=== PATIENT | male | born 1940 | race Hispanic/Latino ===

== ENCOUNTER 2018-04-01 09:44 | Inpatient (IN) | payer MEDICARE ==
--- NOTE | 2018-04-01 10:11 | RAD ---
Date of service: 04/01/2018 HISTORY: Chest pain COMPARISON: 02/24/2011 FINDINGS: LUNGS: The lungs are well inflated. There is dense consolidation in the right upper lobe and mid lung. There is also airspace disease in the left upper lobe and left lower lobe. PLEURA: No significant pleural effusion identified, no pneumothorax apparent. CARDIOVASCULAR: Persistent mild cardiomegaly. Status post CABG. There is a left-sided AICD. OSSEOUS STRUCTURES: No significant abnormalities. VISUALIZED UPPER ABDOMEN: Normal. OTHER FINDINGS: None. IMPRESSION: Multifocal consolidation in the lungs which may represent multifocal pneumonia. Follow-up after medical management is recommended to ensure complete resolution.
[2018-04-01] MEDS ORDERED: Sodium Chloride 0.9% 1,000 ML IV ONE (10:18)
[2018-04-01] MEDS ORDERED: Vancomycin 1 GM 1 GM/250 ML BAG IV STA (10:18)
[2018-04-01 10:19] LABS: LYMPH # 7.6 K/uL (1.0-4.3); LYMPH % 34.2 % (20.0-40.0); MEAN CORPUSCULAR HEMOGLOBIN 36.4 pg (27.0-31.0); MEAN CORPUSCULAR HGB CONC 33.7 g/dL (33.0-37.0); MEAN PLATELET VOLUME 10.2 fL (7.2-11.7); MONO # 0.5 K/uL (0.0-0.8); MONO % 2.1 % (0.0-10.0); NEUT # 14.1 K/uL (1.8-7.0); NEUT % 63.7 % (50.0-75.0); RBC 2.4 Mil/uL (4.40-5.90); RED CELL DISTRIBUTION WIDTH 15.9 % (11.5-14.5); WHITE BLOOD COUNT 22.1 K/uL (4.8-10.8)
[2018-04-01] MEDS ORDERED: Moxifloxacin IV 400mg/250ml NS 400 MG/250 ML BAG IV STA (10:19)
[2018-04-01] MEDS ORDERED: Cefepime 1 GM in Sodium Chloride 0.9% 50 ML IVPB STA (10:19)
--- NOTE | 2018-04-01 10:21 | C.PDOC ---
History Of Present Illness Patient BIBA from home for evaluation of lethargy, respiratory distress, AMS, fever. As per , patient was at normal baseline yesterday night; this morning he was difficult to arouse, confused and tachypnic. History limited due to clinical condition, obtained from EMS and . PMx HTN, CHF, MVP, CLL Time Seen by Provider: 04/01/18 09:55 Chief Complaint (Nursing): Fever History Per: EMS, Family History/Exam Limitations: clinical condition Onset/Duration Of Symptoms: Hrs Severity: Severe Past Medical History Vital Signs: Last Vital Signs Temp 103.1 F H 04/01/18 09:49 Pulse 133 H 04/01/18 10:39 Resp 17 04/01/18 10:39 BP 105/66 04/01/18 10:39 Pulse Ox 86 L 04/01/18 11:07 - Medical History PMH: Atrial Fibrillation, CHF, HTN, Hypercholesterolemia, Mitral Valve Prolapse Surgical History: CABG, Pacemaker - [facility] Procedures DRAINAGE OF RIGHT ELBOW BURSA AND LIGAMENT, PERC APPROACH (06/01/17) Family History: States: No Known Family Hx - Social History Hx Alcohol Use: Yes (social drinker) Hx Substance Use: No - Immunization History Hx Influenza Vaccination: Yes Hx Pneumococcal Vaccination: Yes Review Of Systems Constitutional: Positive for: Fever, Other (AMS, LETHARGY) Respiratory: Positive for: Cough, Shortness of Breath Gastrointestinal: Negative for: Nausea, Vomiting, Abdominal Pain, Diarrhea Skin: Negative for: Rash Physical Exam - Physical Exam Appears: Toxic, In Acute Distress (lethargic, in moderate respiratory distress) , Chronically Ill Skin: Warm, Dry Eye(s): bilateral: Normal Inspection Oral Mucosa: Dry Chest: Other (left upper chest AICD) Cardiovascular: Rhythm Irregular (tachycardic and irregularly irregular ) Respiratory: Accessory Muscle Use (moderate to severe ), Rales (diffuse rales B/ L ), No Wheezing, Other (coarse breath sounds B/L ) Gastrointestinal/Abdominal: Normal Exam, Bowel Sounds, Soft, No Tenderness Extremity: Other (diffuse pitting edema +3 B/L UEs, LEs) Pulses: Left Dorsalis Pedis: Normal, Right Dorsalis Pedis: Normal ED Course And Treatment - Laboratory Results Result Diagrams: 04/01/18 10:09 ECG: Interpreted By Me, Viewed By Me (atrial fibrillation 135 bpm, normal axis, T wave inversions I, aVL, aVF, V5-V6, no ST changes) ECG Interpretation: Abnormal O2 Sat by Pulse Oximetry: 86 (ra) Pulse Ox Interpretation: Abnormal - Radiology CXR: Interpreted by Me, Viewed By Me CXR Interpretation: Yes: Other (B/L infiltrates vs masses, ET tube in place, OG tube below diaphragm) Progress Note: Patient lethargic, dyspneic, fluid overloaded, febrile and hypotensive. Will not be able to tolerate BiPap. confirms patient wants everything done, is full code. Patient emergently intubated by me, given Etomidate 20mg, IV Succinylcholin 100mg IV. 1st attempt esophageal intubation, 2nd attempt successful ET tube 7.5, 24mm at lip. IV NS boluses given, broad spectrum antibiotics ordered, Code sepsis called. 11:05am- Patient accepted to ICU for sepsis, PNA, respiratory distress, AMS, lethargy, fluid overload/ anasarca - Physician Consult Information Physician Contacted: Eneida Maloney Outcome Of Conversation: Spoke with Dr. Maloney, admitted patient 05/2017, he knows patient and agrees with admission to his service. Medical Decision Making Medical Decision Making: Sandy Coma Scale/Score (GCS) from [email or web address] on 04/01/2018 All calculations should be rechecked by clinician prior to use RESULT SUMMARY: 6 points [id number] INPUTS: Best eye response > 1 = No eye opening (+1) Best verbal response > 1 = No verbal response (+1) Best motor response > 4 = Withdrawal from pain (+4) Disposition - Disposition
[2018-04-01 10:22] LABS: HEMOGLOBIN 8.7 g/dL (12.0-18.0)
[2018-04-01 10:23] LABS: INR 1.7; PROTHROMBIN TIME 18.5 SECONDS (9.7-12.2)
[2018-04-01] MEDS ORDERED: Etomidate 20 mg/10ml Inj IV ONE (10:25)
--- NOTE | 2018-04-01 10:36 | RAD ---
Date of service: 04/01/2018 HISTORY: post tube placement COMPARISON: 04/01/2018 FINDINGS: LUNGS: Persistent opacity right mid and upper lung and left perihilar, partially obscured by pacemaker. Possible pneumonia. Followup to clearing to exclude underlying mass. PLEURA: No significant pleural effusion identified, no pneumothorax apparent. CARDIOVASCULAR: Normal heart size. AICD. ET tube and NG tube noted. ET tube is new since prior examination. Stable is situated approximately 4.0 cm above the tracheal meño. Nasogastric tube extends to the left upper abdomen. OSSEOUS STRUCTURES: No significant abnormalities. VISUALIZED UPPER ABDOMEN: Normal. OTHER FINDINGS: None. IMPRESSION: Bilateral opacities common nonspecific. Possible pneumonia. Followup to clearing. New ET tube appropriately positioned.
[2018-04-01] MEDS ORDERED: Sodium Chloride 0.9% 3,000 ML ONE (10:38)
[2018-04-01 10:39] LABS: ABG ALLEN TEST POS; ARTERIAL BLOOD GAS HCO3 24.5 mmol/L (21-28); ARTERIAL BLOOD GAS O2 SAT 99.1 % (95-98); ARTERIAL BLOOD GAS PCO2 34 mm/Hg (35-45); ARTERIAL BLOOD GAS PH 7.44 (7.35-7.45); ARTERIAL BLOOD GAS PO2 94 mm/Hg (80-100); ARTERIAL BLOOD GAS TCO2 24.1 mmol/L (22-28)
[2018-04-01] MEDS ORDERED: Moxifloxacin IV 400mg/250ml NS 400 MG/250 ML BAG IVPB ONE (10:43)
[2018-04-01 11:10] LABS: CK-MB 0.28 ng/mL (0.0-3.38); TROPONIN I 0.214 ng/mL (0.00-0.120)
[2018-04-01 11:37] LABS: SQUAMOUS EPITHIAL < 1 /hpf (0-5); URINE AMORPHOUS SEDIMENT RARE /ul (<OCC); URINE BACTERIA OCC (<OCC); URINE BILIRUBIN NEGATIVE (NEGATIVE); URINE BLOOD 1+ (NEGATIVE); URINE CLARITY Hazy (Clear); URINE COLOR Yellow (YELLOW); URINE GLUCOSE (UA) NORMAL (Normal); URINE LEUKOCYTE ESTERASE 1+ Leu/uL (Negative); URINE PROTEIN NEGATIVE (NEGATIVE); URINE UROBILINOGEN NORMAL mg/dL (0.2-1.0)
[2018-04-01 11:49] LABS: ALB/GLOB RATIO 0.9 (1.0-2.1); ALBUMIN 2.9 g/dL (3.5-5.0); CALCIUM 8.3 mg/dl (8.6-10.4)
[2018-04-01] MEDS ORDERED: Sodium Chloride 0.9% 1,000 ML IV SCH (12:30)
--- NOTE | 2018-04-01 12:39 | CT ---
Date of service: 04/01/2018 PROCEDURE: CT HEAD WITHOUT CONTRAST. HISTORY: ams, resp distress, fever COMPARISON: None available. TECHNIQUE: Axial computed tomography images were obtained through the head/brain without intravenous contrast. Radiation dose: Total exam DLP = 1297.18 mGy-cm. This CT exam was performed using one or more of the following dose reduction techniques: Automated exposure control, adjustment of the mA and/or kV according to patient size, and/or use of iterative reconstruction technique. FINDINGS: HEMORRHAGE: No intracranial hemorrhage. BRAIN: No mass effect or edema. Moderate chronic periventricular white matter lucency with patchy deep and subcortical white matter lucency, consistent with chronic microvascular ischemic change. Multifocal small cortical lucencies without surrounding edema of an without significant volume loss. These are seen high left frontal, medial right frontal, high right frontal vertex. Possible subacute infarcts. However, rule out metastasis. Additionally, there are areas of low attenuation in the right basal ganglia which may represent subacute infarcts. Recommend evaluation with pre and post gadolinium enhanced magnetic resonance imaging. 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 VENTRICLES: No hydrocephalus. Incidental cavum septum pellucidum. CALVARIUM: Unremarkable. PARANASAL SINUSES: Chronic sphenoid and right maxillary sinusitis. No evidence of acute sinusitis. MASTOID AIR CELLS: Unremarkable as visualized. No inflammatory changes. OTHER FINDINGS: None. IMPRESSION: Multifocal small cortical lucencies without significant volume loss or surrounding edema. Possible subacute infarcts. Possible subacute right basal ganglia lacunar infarcts. Recommend pre and post gadolinium enhanced magnetic resonance imaging for further evaluation to rule out metastasis. 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 Chronic white matter ischemic change. Mild age-appropriate atrophy.
[2018-04-01] MEDS ORDERED: Digoxin 500 mcg/2ml (0.5 mg/2ml) Inj IVP ONE ×2 (12:41→21:00)
--- NOTE | 2018-04-01 12:46 | CT ---
Date of service: 04/01/2018 PROCEDURE: CT Chest without contrast HISTORY: resp distress, B/L masses vs infiltrates? COMPARISON: None available. TECHNIQUE: Contiguous axial images were obtained through the chest without intravenous contrast enhancement. Sagittal and coronal reconstructions were performed. Radiation dose (DLP): 643.34 mGy-cm. This CT exam was performed using one or more of the following dose reduction techniques: Automated exposure control, adjustment of the mA and/or kV according to patient size, and/or use of iterative reconstruction technique. FINDINGS: LUNGS: Multifocal bilateral consolidation, most prominent in both lower lobes and in the right upper lobe and left upper lobe, right greater than left. Followup to clearing to rule out underlying mass. There are vaguely masslike opacities noted in both upper lobes as well. MEDIASTINUM: Unremarkable thoracic aorta. No aneurysm. Cardiomegaly. CABG. AICD. Dilated main pulmonary artery up to a diameter of 3.5 cm. This may correlate with pulmonary arterial hypertension. No significant lymphadenopathy. ET tube approximately 2.7 cm above the tracheal meño. Nasogastric tube traverses the thoracic esophagus to the gastric lumen. PLEURA: Small bilateral pleural effusion. BONES: No fracture. No destructive lesion. UPPER ABDOMEN: Mild splenomegaly. . Ascites. OTHER FINDINGS: None. IMPRESSION: Multifocal consolidation with vaguely masslike opacities in both upper lobes. Possible multifocal pneumonia. Followup to clearing to rule out underlying neoplasm. Small bilateral pleural effusion. Cardiomegaly. AICD. CABG. ET tube and NG tube. Dilated main pulmonary artery. Ascites. Mild splenomegaly.
[2018-04-01 13:24] LABS: ARTERIAL BLOOD GAS HCO3 24.3 mmol/L (21-28); ARTERIAL BLOOD GAS O2 SAT 99.3 % (95-98); ARTERIAL BLOOD GAS PCO2 28 mm/Hg (35-45); ARTERIAL BLOOD GAS PH 7.49 (7.35-7.45); ARTERIAL BLOOD GAS PO2 203 mm/Hg (80-100); ARTERIAL BLOOD GAS TCO2 22.2 mmol/L (22-28)
[2018-04-01] MEDS: Sodium Chloride 0.9% 500 ML IV ONE ×2 (13:45→14:15)
--- NOTE | 2018-04-01 13:53 | CP.PCM.CON ---
History of Present Illness - History of Present Illness History of Present Illness: ICU Consult note for Dr. Lee Patient is a 77 year old male with history of CLL, A fib, HTN, CHF, CAD s/p CABG and AICD, with possible liver cirrhosis, who was brought in by as per EMS for altered mental status and respiratory distress. Patient was recently started on Ibrutinib for CLL over 2 weeks ago. He had reportedly had a cough with hemoptysis since starting Ibrutinib. As per , he did not complain of pain in his chest recently. states he was febrile 2 days ago, treated with Tylenol and cold compresses . He was alert until this morning, when he was more lethargic and difficult to arouse. As per , he appeared to be in respiratory distress and was altered. He was noted to be more weak and unable to stand up on his own yesterday. PMH: CLL with hemolytic anemia, A fib, HTN, CHF, CAD s/p CABG, AICD, liver cirrhosis, unspecified kidney growth PSH: CABG, AICD, left elbow Social hx: as per , no history of tobacco or alcohol use. Home meds: Flomax 0.4mg, Simvastatin 20mg, Florastor 250mg BID, Metoprolol 25mg BID, Losartan 12.5mg, Zyvox 600mg BID, Lasix 20 PO daily, Pepcid 20mg daily, Plavix 75mg daily, ASA 81mg Allergies: NKDA PMD: Dr. Ivan Villafana EP: Dr. Mcclelland GI: Dr. Santillan Oncologist: Dr. Ibarra Traffic Representative: Dr. Valerio Review of Systems - Review of Systems Systems not reviewed;Unavailable: Intubated Past Patient History - Past Medical History & Family History Past Medical History?: Yes - Past Social History Smoking Status: Never Smoked - CARDIAC Hx Atrial Fibrillation: Yes Hx Congestive Heart Failure: Yes Hx Hypercholesterolemia: Yes Hx Hypertension: Yes Hx Mitral Valve Prolapse: Yes Hx Pacemaker: Yes - PULMONARY Hx Respiratory Disorders: No - NEUROLOGICAL Hx Neurological Disorder: No - HEENT Hx HEENT Problems: No - RENAL Hx Chronic Kidney Disease: No - ENDOCRINE/METABOLIC Hx Endocrine Disorders: No - HEMATOLOGICAL/ONCOLOGICAL Hx Blood Disorders: No Hx Leukemia: Yes - INTEGUMENTARY Hx Dermatological Problems: No - MUSCULOSKELETAL/RHEUMATOLOGICAL Hx Falls: No - GASTROINTESTINAL Hx Gastrointestinal Disorders: No - GENITOURINARY/GYNECOLOGICAL Hx Genitourinary Disorders: No - PSYCHIATRIC Hx Substance Use: No - SURGICAL HISTORY Hx Coronary Artery Bypass Graft: Yes - ANESTHESIA Hx Anesthesia: Yes Hx Anesthesia Reactions: No Hx Malignant Hyperthermia: No Meds Allergies/Adverse Reactions: Allergies Allergy/AdvReac Type Severity Reaction Status Date / Time No Known Allergies Allergy Verified 04/01/18 09:48 - Medications Medications: Current Medications Acetaminophen (Tylenol 325mg Tab) 650 mg PO Q6 PRN PRN Reason: Fever >100.4 F Albuterol Sulfate (Albuterol 0.083% Inhal Elisa (2.5 Mg/3 Ml) Ud) 2.5 mg IH RQ6 JACK Famotidine (Pepcid) 20 mg IVP Q24H JACK Fentanyl Citrate 2,500 mcg/ (Sodium Chloride) 250 mls @ 6.35 mls/hr IV .Q24H PRN; Protocol; 0.7 MCG/KG/HR PRN Reason: PER PROTOCOL Last Admin: 04/01/18 11:26 Dose: 0.66 mcg/kg/hr, 6 mls/hr Sodium Chloride (Sodium Chloride 0.9%) 1,000 mls @ 250 mls/hr IV .Q4H JACK Stop: 04/01/18 20:29 Vancomycin HCl 1,000 mg/ (Sodium Chloride) 250 mls @ 166.6 mls/hr IVPB Q12H JACK PRN Reason: Protocol Vasopressin 40 units/ Sodium (Chloride) 42 mls @ 1.26 mls/hr IV .Q24H JACK; 0.02 UNITS/MIN PRN Reason: Protocol Physical Exam - Constitutional Appears: Other (Intubated and sedated) - Head Exam Head Exam: ATRAUMATIC, NORMOCEPHALIC - Eye Exam Eye Exam: absent: EOMI (sedated and intubated, unable to follow commands) - ENT Exam ENT Exam: Mucous Membranes Moist (ETT and OGT in place, some bloody secretions noted in canister) - Neck Exam Neck exam: Negative for: Lymphadenopathy Additional comments: Right IJ in place - Respiratory Exam Respiratory Exam: Rhonchi (diffusely with coarse breath sounds. Intubated and ventilated. ). absent: Rales, Wheezes - Cardiovascular Exam Cardiovascular Exam: Irregular Rhythm, +S1, +S2 Additional comments: left upper chest AICD present - GI/Abdominal Exam GI & Abdominal Exam: Normal Bowel Sounds, Soft. absent: Guarding, Rebound, Rigid - Extremities Exam Extremities exam: Positive for: pedal edema (2+ pedal edema bilaterally), pedal pulses present. Negative for: calf tenderness Additional comments: Edema of upper extremities bilaterally. - Neurological Exam Neurological exam: Altered (Intubated and sedated. Unable to assess GCS) - Psychiatric Exam Additional comments: Unable to assess since patient is intubated and sedated - Skin Skin Exam: Dry, Intact, Warm Results - Vital Signs Recent Vital Signs: Last Vital Signs Temp 99.3 F 04/01/18 12:29 Pulse 155 H 04/01/18 13:18 Resp 19 04/01/18 13:18 BP 71/33 L 04/01/18 13:18 Pulse Ox 98 04/01/18 13:18 - Labs Result Diagrams: 04/01/18 15:56 04/01/18 15:56 Labs: Laboratory Results - last 24 hr 04/01/18 04/01/18 04/01/18 09:55 10:09 10:09 WBC 22.1 H RBC 2.40 L Hgb 8.7 L D Hct 25.9 L MCV 108.0 H D MCH 36.4 H MCHC 33.7 RDW 15.9 H Plt Count 65 L D MPV 10.2 Neut % (Auto) 63.7 Lymph % (Auto) 34.2 [place] % (Auto) 2.1 Eos % (Auto) 0.0 Baso % (Auto) 0.0 Neut # (Auto) 14.1 H Lymph # (Auto) 7.6 H [place] # (Auto) 0.5 Eos # (Auto) 0.0 Baso # (Auto) 0.0 Differential Comment PT 18.5 H INR 1.7 APTT 28 Puncture Site pCO2 pO2 HCO3 ABG pH ABG Total CO2 ABG O2 Saturation ABG Base Excess Ricky Test ABG Potassium A-a O2 Difference Respiratory Index Sodium Chloride Glucose Lactate Vent Mode Mechanical Rate FiO2 Tidal Volume PEEP Potassium Carbon Dioxide Anion Gap BUN Creatinine Est GFR ( Amer) Est GFR (Non-Af Amer) POC Glucose (mg/dL) 123 H Random Glucose Calcium Phosphorus Magnesium Total Bilirubin AST ALT Alkaline Phosphatase Total Creatine Kinase CK-MB (Mass) Troponin I NT-Pro-B Natriuret Pep Total Protein Albumin Globulin Albumin/Globulin Ratio Arterial Blood Potassium Urine Color Urine Clarity Urine pH Ur Specific [place] Urine Protein Urine Glucose (UA) Urine Ketones Urine Blood Urine Nitrate Urine Bilirubin Urine Urobilinogen Ur Leukocyte Esterase Urine WBC (Auto) Urine RBC (Auto) Ur Squamous Epith Cells Amorphous Sediment Urine Bacteria Hyaline Casts Influenza Typ A,B (EIA) Blood Type Antibody Screen 04/01/18 04/01/18 04/01/18 10:09 10:36 10:46 WBC RBC Hgb Hct MCV MCH MCHC RDW Plt Count MPV Neut % (Auto) Lymph % (Auto) [place] % (Auto) Eos % (Auto) Baso % (Auto) Neut # (Auto) Lymph # (Auto) [place] # (Auto) Eos # (Auto) Baso # (Auto) Differential Comment PT INR APTT Puncture Site Lra pCO2 34 L pO2 94 HCO3 24.5 ABG pH 7.44 ABG Total CO2 24.1 ABG O2 Saturation 99.1 H ABG Base Excess -0.5 Ricky Test Pos ABG Potassium 3.5 L A-a O2 Difference 577.0 Respiratory Index 6.1 Sodium 140.0 142 Chloride 111.0 H 105 Glucose 109 Lactate 1.3 Vent Mode Prvc Mechanical Rate 16 FiO2 100.0 Tidal Volume 500 PEEP 5 Potassium 3.4 L Carbon Dioxide 24 Anion Gap 17 BUN 79 H Creatinine 1.9 H Est GFR ( Amer) 42 Est GFR (Non-Af Amer) 35 POC Glucose (mg/dL) Random Glucose 118 H Calcium 8.3 L Phosphorus 5.7 H Magnesium 2.4 H Total Bilirubin 3.6 H AST 31 ALT 62 Alkaline Phosphatase 60 Total Creatine Kinase 45 L CK-MB (Mass) 0.28 Troponin I 0.2140 H* NT-Pro-B Natriuret Pep 9300 H Total Protein 6.2 L Albumin 2.9 L D Globulin 3.3 Albumin/Globulin Ratio 0.9 L Arterial Blood Potassium 3.5 L Urine Color Urine Clarity Urine pH Ur Specific [place] Urine Protein Urine Glucose (UA) Urine Ketones Urine Blood Urine Nitrate Urine Bilirubin Urine Urobilinogen Ur Leukocyte Esterase Urine WBC (Auto) Urine RBC (Auto) Ur Squamous Epith Cells Amorphous Sediment Urine Bacteria Hyaline Casts Influenza Typ A,B (EIA) Blood Type Antibody Screen 04/01/18 04/01/18 04/01/18 11:17 11:17 13:20 WBC RBC Hgb Hct MCV MCH MCHC RDW Plt Count MPV Neut % (Auto) Lymph % (Auto) [place] % (Auto) Eos % (Auto) Baso % (Auto) Neut # (Auto) Lymph # (Auto) [place] # (Auto) Eos # (Auto) Baso # (Auto) Differential Comment PT INR APTT Puncture Site Rb pCO2 28 L pO2 203 H HCO3 24.3 ABG pH 7.49 H ABG Total CO2 22.2 ABG O2 Saturation 99.3 H ABG Base Excess -0.9 Ricky Test Na ABG Potassium 2.9 L A-a O2 Difference 475.0 Respiratory Index 2.3 Sodium 141.0 Chloride 113.0 H Glucose 115 H Lactate 1.0 Vent Mode Mechanical Rate 18 FiO2 100.0 Tidal Volume 500 PEEP 5 Potassium Carbon Dioxide Anion Gap BUN Creatinine Est GFR ( Amer) Est GFR (Non-Af Amer) POC Glucose (mg/dL) Random Glucose Calcium Phosphorus Magnesium Total Bilirubin AST ALT Alkaline Phosphatase Total Creatine Kinase CK-MB (Mass) Troponin I NT-Pro-B Natriuret Pep Total Protein Albumin Globulin Albumin/Globulin Ratio Arterial Blood Potassium 2.9 L Urine Color Yellow Urine Clarity Hazy Urine pH 5.0 Ur Specific [place] 1.009 Urine Protein Negative Urine Glucose (UA) Normal Urine Ketones Negative Urine Blood 1+ H Urine Nitrate Negative Urine Bilirubin Negative Urine Urobilinogen Normal Ur Leukocyte Esterase 1+ H Urine WBC (Auto) 3 Urine RBC (Auto) 2 Ur Squamous Epith Cells < 1 Amorphous Sediment Rare H Urine Bacteria Occ H Hyaline Casts 11-20 H Influenza Typ A,B (EIA) Blood Type A POSITIVE Antibody Screen Positive 04/01/18 13:23 WBC RBC Hgb Hct MCV MCH MCHC RDW Plt Count MPV Neut % (Auto) Lymph % (Auto) [place] % (Auto) Eos % (Auto) Baso % (Auto) Neut # (Auto) Lymph # (Auto) [place] # (Auto) Eos # (Auto) Baso # (Auto) Differential Comment PT INR APTT Puncture Site pCO2 pO2 HCO3 ABG pH ABG Total CO2 ABG O2 Saturation ABG Base Excess Ricky Test ABG Potassium A-a O2 Difference Respiratory Index Sodium Chloride Glucose Lactate Vent Mode Mechanical Rate FiO2 Tidal Volume PEEP Potassium Carbon Dioxide Anion Gap BUN Creatinine Est GFR ( Amer) Est GFR (Non-Af Amer) POC Glucose (mg/dL) Random Glucose Calcium Phosphorus Magnesium Total Bilirubin AST ALT Alkaline Phosphatase Total Creatine Kinase CK-MB (Mass) Troponin I NT-Pro-B Natriuret Pep Total Protein Albumin Globulin Albumin/Globulin Ratio Arterial Blood Potassium Urine Color Urine Clarity Urine pH Ur Specific [place] Urine Protein Urine Glucose (UA) Urine Ketones Urine Blood Urine Nitrate Urine Bilirubin Urine Urobilinogen Ur Leukocyte Esterase Urine WBC (Auto) Urine RBC (Auto) Ur Squamous Epith Cells Amorphous Sediment Urine Bacteria Hyaline Casts Influenza Typ A,B (EIA) Negative for flu a/b Blood Type Antibody Screen Assessment & Plan - Assessment and Plan (Free Text) Assessment: 76 year old male with history of CLL, A fib, HTN, CHF, CAD s/p CABG and AICD who presented for evaluation of altered mental status and respiratory distress. Patient was recently started on Ibrutinib for CLL, has had recent hemoptysis. Has had no recent complaints of pain, however became progressively more weak and altered. Plan: Neuro: intubated Versed 1mg Q3 PRN Head CT without contrast 04/01 Multifocal small cortical lucencies without significant volume loss or surrounding edema. Possible subacute infarcts. Possible subacute right basal ganglia lacunar infarcts. Recommend pre and post gadolinium enhanced magnetic resonance imaging for further evaluation to rule out metastasis. 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 Chronic white matter ischemic change. Mild age-appropriate atrophy. Pulmonary: Duonebs Q6 Solumedrol 40mg IV Q8 Vancomycin 1g Q12 CXR 04/01 Multifocal consolidation in the lungs which may represent multifocal pneumonia. Follow-up after medical management is recommended to ensure complete resolution. ETT appropriately placed. New right IJ central line in satisfactory position Chest CT 04/01 Multifocal consolidation with vaguely masslike opacities in both upper lobes. Possible multifocal pneumonia. Followup to clearing to rule out underlying neoplasm. Small bilateral pleural effusion. Cardiomegaly. AICD. CABG. ET tube and NG tube. Dilated main pulmonary artery. Ascites. Mild splenomegaly. ABG 04/01 pH 7.44 pCO2 34 HCO3 24.5 lactate 1.3 Repeat ABG 04/01 pH 7.49 pCO2 28 HCO3 24.3 lactate 1.0 Cardiovascular: EKG: Afib at 135, normal axis, T wave inversions in I, AVL, AVF, V5-6, no ST changes Trop 0.2140 --> 0.[address] Valerio consulted, help appreciated Hx of CAD with CABG and AICD in place Hypotensive 64/44, Right IJ central line placed On Levophed 4mcg/min On Vasopressin 0.02units/min Albumin 12.5mg Q12 NS IVF @ 100cc/hr Tachycardic 130s initially, now 104 ECHO f/u Renal: BUN/Cr 79/1.9 Continue to monitor electrolytes, K repleted I&Os Reese in place Endo: maintain euglycemia GI PPX: Pepcid 20mg IV Abdomen US completed ordered, given patient's stated possible liver cirrhosis and unspecified kidney growth ID Dr. Lu consulted, help appreciated White count 22.1 Febrile to 103.1 HR 130s Tylenol 650mg PO Q6 PRN fever Telavancin, Pramaxin and Atovaquone as per ID recs Blood cultures, urine cultures and sputum cultures sent Heme Dr. Ibarra consulted, help appreciated Hx of CLL Hb 8.7/Hct 25.9 Plts 65 Continue to monitor PPX: SCDs Code status: full code Case discussed with Dr. Lee
[2018-04-01] MEDS ORDERED: Sodium Chloride 0.9% 500 ML IV ONE (14:31)
--- NOTE | 2018-04-01 14:42 | PCM.PROC ---
Procedures Attestation:: I certify that I have explained the specified Operation(s) or Procedure(s), risks, benefits and reasonable alternatives to the Patient and/or other person responsible. The opportunity was given to ask questions and all questions answered - Central Line Placement Right Internal Jugular Aseptic technique was employed throughout the procedure: Hand Hygiene done prior to procedure, Full sterile barriers (mask, hair cover, sterile gown, sterile gloves), Full body sterile drape, Chloraprep Antiseptic: 30 second prep for IJ or SC sites CVP Time Out Performed: Yes Pt. Placed on Pulse Ox Monitor: Yes Central Line Prep: Chlorhexidine-Alcohol Combination Local Anesthesia Used: Lidocaine 1% Ultrasound Used for Placement: Yes Central Line Lumen Inserted: triple Central Line Length: 16 cm Post Procedure: Sutured in Place, Good Blood Return, All Ports Aspirated, Flushed, Capped, Sterile Dressing Applied Secured by: Suture Post procedure dressing: Clear vapor permeable, Chlorhexidine disc (Biopatch) Post Procedure X-Ray: Yes Patient Tolerated Procedure: Well Immediate Complications: None
--- NOTE | 2018-04-01 15:16 | RAD ---
Date of service: 04/01/2018 HISTORY: s/p tlc insertion COMPARISON: Chest radiograph performed approximately 4.5 hours prior FINDINGS: LUNGS: Stable bilateral consolidations. PLEURA: Small bilateral pleural effusions. No pneumothorax apparent. CARDIOVASCULAR: Left subclavian access AICD/ pacemaker redemonstrated. Prior sternotomy with sternal wires and surgical clips redemonstrated. Atherosclerotic aortic calcifications. Cardiomediastinal silhouette stably enlarged. OSSEOUS STRUCTURES: Unchanged. VISUALIZED UPPER ABDOMEN: Normal. OTHER FINDINGS: New right internal jugular access central venous catheter with tip in the proximal SVC. Endotracheal and enteric tubes, unchanged. IMPRESSION: New right internal jugular access central venous catheter in satisfactory position. No appreciable pneumothorax. No other significant interval change.
[2018-04-01] MEDS: Albumin Human 25% (12.5 gm/50 ml) IV SCH ×2 (15:40→21:41)
[2018-04-01] MEDS: MethylPREDNISolone 40 mg Vial IVP SCH (15:40)
[2018-04-01 16:00] LABS: HEMOGLOBIN 7.5 g/dL (12.0-18.0); MONO # 0.3 K/uL (0.0-0.8)
[2018-04-01] MEDS: Sodium Chloride 0.9% 1,000 ML IV SCH (16:00)
[2018-04-01 16:07] LABS: BASO % 0.2 % (0.0-2.0); EOS % 0.1 % (0.0-4.0); LYMPH # 4.8 K/uL (1.0-4.3); LYMPH % 32.8 % (20.0-40.0); MEAN CORPUSCULAR HEMOGLOBIN 36.7 pg (27.0-31.0); MEAN CORPUSCULAR HGB CONC 33.1 g/dL (33.0-37.0); MEAN PLATELET VOLUME 10.1 fL (7.2-11.7); MONO % 2.2 % (0.0-10.0); NEUT # 9.6 K/uL (1.8-7.0); NEUT % 64.7 % (50.0-75.0); NRBC % 41.4 % (0.0-2.0); RBC 2.04 Mil/uL (4.40-5.90)
[2018-04-01 16:09] LABS: MEAN CELL VOLUME 111.1 fL (80.0-94.0)
[2018-04-01 16:15] LABS: ALB/GLOB RATIO 0.8 (1.0-2.1); ALBUMIN 2.2 g/dL (3.5-5.0); CALCIUM 7.3 mg/dl (8.6-10.4)
[2018-04-01 16:36] LABS: CK-MB 1.34 ng/mL (0.0-3.38)
[2018-04-01 16:37] LABS: TROPONIN I 0.224 ng/mL (0.00-0.120)
[2018-04-01] MEDS ORDERED: Midazolam 2 MG/2 ML VIAL IVP PRN (16:51)
[2018-04-01 16:54] LABS: WHITE BLOOD COUNT 21.4 K/uL (4.8-10.8)
--- NOTE | 2018-04-01 17:31 | CP.PCM.CON ---
History of Present Illness - History of Present Illness History of Present Illness: INFECTIOUS DISEASE CONSULTATION NALLELY VAZQUEZ MD, FACP ICU #7 04/01/2018 CHART REVIEWED PT EXAMINED CASE DISCUSSED WITH CAROLINE PILLAI & REAGAN THIS PATIENT IS A 77 YEAR OLD MALE ADMITTED VIA ER/ED WITH TEMPS 103, HYPOTENSION, BILATERAL INFILTRATES AND REQUIRED INTUBATION FOR ACUTE MEDICAL STABLIZATION. 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 KIDNEY LESION, JUST TO MENTION A FEW! PMHX: CLL WITH HEMOLYTIC ANEMIA ATRIAL FIB HTN DYSLIPIDEMIA CAD/ S/P CABG AND AICD CIRRHOSIS A KIDNEY LESION(?) ELBOW ISSUES ETC NO KNOWN ALLERGIES TO MEDS NO RECENT TOBACCO/ETOH FAMILY HX NOT AVAILABLE OR APPLICABLE IN THIS ACUTE CARE SETTING ROS: PER H/P AND CHART-UNABLE OTHERWISE TO ACCERTAIN, LABS: WBC 22,100 H/H 7.5/22/7 PLTS 57 K 3.3 CREAT 1.6 GFR 42 TROPONINS; 0.214, 0.224 MEDS PER CHART REVIEW FROM TOP TO BOTTOM ON DAY ONE, EXAM: BP 71/33 P 155 R INTUBATED SEDATED MOIST MUCOSA DECREASED BREATH SOUNDS WITH DIFFUSE RHONCHI AND QUESTION OF RALES COR TACHYCARDIA ABD SOFT EXT NO ECCHYMOSIS OR CYANOSIS NOTED PRESENTLY NO PERIPHERAL MANIFESTATIONS OF EMBOLIC PHENOMENON IMPRESSION: FROM THE ID POINT OF VIEW; A COMPLICATED CASE OF A 77 YR OLD MAN WITH MULTIORGAN DYSFUNCTION 2ND TO CLL/ MEDS AND AGE ISSUES, ETC R/O BACTERIAL PNEUMONIA WITH COMPLICATED ORGANISMS COVERAGE INCLUDING STREP.MRSA AND GRAM NEGATIVES, WITH EVEN PCP ISSUES START TELAVANCIN(VIBTIV) 700MG IVPB Q 24 HRS PRIMAXIN 500MG IVPB Q 8 HOURS ATOVAQUONE 750MG PO/NGTUBE BID WITH FOOD CBC WITH DIFF, EST, CRP CMP PT/PTT ASK DR GARCIA/XIOMARA FOR THEIR INPUT THANK YOU PROGNOSIS IS GUARDED NALLELY VAZQUEZ MD, FACP ID SENIOR PHYSICIAN Past Patient History - Past Medical History & Family History Past Medical History?: Yes - Past Social History Smoking Status: Never Smoked - CARDIAC Hx Atrial Fibrillation: Yes Hx Congestive Heart Failure: Yes Hx Hypercholesterolemia: Yes Hx Hypertension: Yes Hx Mitral Valve Prolapse: Yes Hx Pacemaker: Yes - PULMONARY Hx Respiratory Disorders: No - NEUROLOGICAL Hx Neurological Disorder: No - HEENT Hx HEENT Problems: No - RENAL Hx Chronic Kidney Disease: No - ENDOCRINE/METABOLIC Hx Endocrine Disorders: No - HEMATOLOGICAL/ONCOLOGICAL Hx Blood Disorders: No Hx Leukemia: Yes - INTEGUMENTARY Hx Dermatological Problems: No - MUSCULOSKELETAL/RHEUMATOLOGICAL Hx Falls: No - GASTROINTESTINAL Hx Gastrointestinal Disorders: No - GENITOURINARY/GYNECOLOGICAL Hx Genitourinary Disorders: No - PSYCHIATRIC Hx Substance Use: No - SURGICAL HISTORY Hx Coronary Artery Bypass Graft: Yes - ANESTHESIA Hx Anesthesia: Yes Hx Anesthesia Reactions: No Hx Malignant Hyperthermia: No Meds Allergies/Adverse Reactions: Allergies Allergy/AdvReac Type Severity Reaction Status Date / Time No Known Allergies Allergy Verified 04/01/18 09:48 - Medications Medications: Current Medications Acetaminophen (Tylenol 325mg Tab) 650 mg PO Q6 PRN PRN Reason: Fever >100.4 F Albumin Human (Albumin Human 25% (12.5 Gm/50 Ml)) 12.5 gm IV Q12 JACK Last Admin: 04/01/18 15:40 Dose: 12.5 gm Albuterol Sulfate (Albuterol 0.083% Inhal Elisa (2.5 Mg/3 Ml) Ud) 2.5 mg IH RQ6 JACK Famotidine (Pepcid) 20 mg IVP Q24H JACK Vancomycin HCl 1,000 mg/ (Sodium Chloride) 250 mls @ 166.6 mls/hr IVPB Q12H JACK PRN Reason: Protocol Norepinephrine Bitartrate 4 mg (/ Sodium Chloride) 254 mls @ 15.24 mls/hr IV .[id number] PRN; Protocol; 4 MCG/MIN PRN Reason: TITRATE PER MD ORDER Last Admin: 04/01/18 14:59 Dose: 4 mcg/min, 15.24 mls/hr Vasopressin 40 units/ Sodium (Chloride) 40 mls @ 1.2 mls/hr IV .Q24H PRN; Protocol; 0.02 UNITS/MIN PRN Reason: TITRATE PER PROTOCOL Last Admin: 04/01/18 14:40 Dose: 0.02 units/min, 1.2 mls/hr Sodium Chloride (Sodium Chloride 0.9%) 1,000 mls @ 100 mls/hr IV .Q10H JACK Methylprednisolone (Solu-Medrol) 40 mg IVP Q12H JACK Last Admin: 08/27/18 15:40 Dose: 40 mg Midazolam HCl (Versed Inj) 1 mg IVP Q3 PRN PRN Reason: Agitation Results - Vital Signs Recent Vital Signs: Last Vital Signs Temp 97.6 F 04/01/18 16:00 Pulse 104 H 04/01/18 16:41 Resp 17 04/01/18 16:41 BP 96/53 L 04/01/18 16:41 Pulse Ox 96 04/01/18 16:41 - Labs Result Diagrams: 04/01/18 15:56 04/01/18 15:56 Labs: Laboratory Results - last 24 hr 04/01/18 04/01/18 04/01/18 09:55 10:09 10:09 WBC 22.1 H RBC 2.40 L Hgb 8.7 L D Hct 25.9 L MCV 108.0 H D MCH 36.4 H MCHC 33.7 RDW 15.9 H Plt Count 65 L D MPV 10.2 Neut % (Auto) 63.7 Lymph % (Auto) 34.2 Starr % (Auto) 2.1 Eos % (Auto) 0.0 Baso % (Auto) 0.0 Neut # (Auto) 14.1 H Lymph # (Auto) 7.6 H Starr # (Auto) 0.5 Eos # (Auto) 0.0 Baso # (Auto) 0.0 Differential Comment PT 18.5 H INR 1.7 APTT 28 Puncture Site pCO2 pO2 HCO3 ABG pH ABG Total CO2 ABG O2 Saturation ABG Base Excess Ricky Test ABG Potassium A-a O2 Difference Respiratory Index Sodium Chloride Glucose Lactate Vent Mode Mechanical Rate FiO2 Tidal Volume PEEP Potassium Carbon Dioxide Anion Gap BUN Creatinine Est GFR ( Amer) Est GFR (Non-Af Amer) POC Glucose (mg/dL) 123 H Random Glucose Lactic Acid Calcium Phosphorus Magnesium Total Bilirubin AST ALT Alkaline Phosphatase Total Creatine Kinase CK-MB (Mass) Troponin I NT-Pro-B Natriuret Pep Total Protein Albumin Globulin Albumin/Globulin Ratio Arterial Blood Potassium Urine Color Urine Clarity Urine pH Ur Specific [place] Urine Protein Urine Glucose (UA) Urine Ketones Urine Blood Urine Nitrate Urine Bilirubin Urine Urobilinogen Ur Leukocyte Esterase Urine WBC (Auto) Urine RBC (Auto) Ur Squamous Epith Cells Amorphous Sediment Urine Bacteria Hyaline Casts Influenza Typ A,B (EIA) Blood Type Antibody Screen DELFINA, Poly Interpret 04/01/18 04/01/18 04/01/18 10:09 10:36 10:46 WBC RBC Hgb Hct MCV MCH MCHC RDW Plt Count MPV Neut % (Auto) Lymph % (Auto) Starr % (Auto) Eos % (Auto) Baso % (Auto) Neut # (Auto) Lymph # (Auto) Starr # (Auto) Eos # (Auto) Baso # (Auto) Differential Comment PT INR APTT Puncture Site Lra pCO2 34 L pO2 94 HCO3 24.5 ABG pH 7.44 ABG Total CO2 24.1 ABG O2 Saturation 99.1 H ABG Base Excess -0.5 Ricky Test Pos ABG Potassium 3.5 L A-a O2 Difference 577.0 Respiratory Index 6.1 Sodium 140.0 142 Chloride 111.0 H 105 Glucose 109 Lactate 1.3 Vent Mode Prvc Mechanical Rate 16 FiO2 100.0 Tidal Volume 500 PEEP 5 Potassium 3.4 L Carbon Dioxide 24 Anion Gap 17 BUN 79 H Creatinine 1.9 H Est GFR ( Amer) 42 Est GFR (Non-Af Amer) 35 POC Glucose (mg/dL) Random Glucose 118 H Lactic Acid Calcium 8.3 L Phosphorus 5.7 H Magnesium 2.4 H Total Bilirubin 3.6 H AST 31 ALT 62 Alkaline Phosphatase 60 Total Creatine Kinase 45 L CK-MB (Mass) 0.28 Troponin I 0.2140 H* NT-Pro-B Natriuret Pep 9300 H Total Protein 6.2 L Albumin 2.9 L D Globulin 3.3 Albumin/Globulin Ratio 0.9 L Arterial Blood Potassium 3.5 L Urine Color Urine Clarity Urine pH Ur Specific [place] Urine Protein Urine Glucose (UA) Urine Ketones Urine Blood Urine Nitrate Urine Bilirubin Urine Urobilinogen Ur Leukocyte Esterase Urine WBC (Auto) Urine RBC (Auto) Ur Squamous Epith Cells Amorphous Sediment Urine Bacteria Hyaline Casts Influenza Typ A,B (EIA) Blood Type Antibody Screen DELFINA, Poly Interpret 04/01/18 04/01/18 04/01/18 11:17 11:17 13:20 WBC RBC Hgb Hct MCV MCH MCHC RDW Plt Count MPV Neut % (Auto) Lymph % (Auto) Starr % (Auto) Eos % (Auto) Baso % (Auto) Neut # (Auto) Lymph # (Auto) Starr # (Auto) Eos # (Auto) Baso # (Auto) Differential Comment PT INR APTT Puncture Site Rb pCO2 28 L pO2 203 H HCO3 24.3 ABG pH 7.49 H ABG Total CO2 22.2 ABG O2 Saturation 99.3 H ABG Base Excess -0.9 Ricky Test Na ABG Potassium 2.9 L A-a O2 Difference 475.0 Respiratory Index 2.3 Sodium 141.0 Chloride 113.0 H Glucose 115 H Lactate 1.0 Vent Mode Mechanical Rate 18 FiO2 100.0 Tidal Volume 500 PEEP 5 Potassium Carbon Dioxide Anion Gap BUN Creatinine Est GFR ( Amer) Est GFR (Non-Af Amer) POC Glucose (mg/dL) Random Glucose Lactic Acid Calcium Phosphorus Magnesium Total Bilirubin AST ALT Alkaline Phosphatase Total Creatine Kinase CK-MB (Mass) Troponin I NT-Pro-B Natriuret Pep Total Protein Albumin Globulin Albumin/Globulin Ratio Arterial Blood Potassium 2.9 L Urine Color Yellow Urine Clarity Hazy Urine pH 5.0 Ur Specific [place] 1.009 Urine Protein Negative Urine Glucose (UA) Normal Urine Ketones Negative Urine Blood 1+ H Urine Nitrate Negative Urine Bilirubin Negative Urine Urobilinogen Normal Ur Leukocyte Esterase 1+ H Urine WBC (Auto) 3 Urine RBC (Auto) 2 Ur Squamous Epith Cells < 1 Amorphous Sediment Rare H Urine Bacteria Occ H Hyaline Casts 11-20 H Influenza Typ A,B (EIA) Blood Type A POSITIVE Antibody Screen Positive DELFINA, Poly Interpret Positive H 04/01/18 04/01/18 04/01/18 13:23 15:56 15:56 WBC 21.4 H RBC 2.04 L Hgb 7.5 L Hct 22.7 L MCV 111.1 H D MCH 36.7 H MCHC 33.1 RDW 16.0 H Plt Count 57 L MPV 10.1 Neut % (Auto) 64.7 Lymph % (Auto) 32.8 Starr % (Auto) 2.2 Eos % (Auto) 0.1 Baso % (Auto) 0.2 Neut # (Auto) 9.6 H Lymph # (Auto) 4.8 H Starr # (Auto) 0.3 Eos # (Auto) 0.0 Baso # (Auto) 0.0 Differential Comment PT INR APTT Puncture Site pCO2 pO2 HCO3 ABG pH ABG Total CO2 ABG O2 Saturation ABG Base Excess Ricky Test ABG Potassium A-a O2 Difference Respiratory Index Sodium 143 Chloride 110 H Glucose Lactate Vent Mode Mechanical Rate FiO2 Tidal Volume PEEP Potassium 3.3 L Carbon Dioxide 22 Anion Gap 14 BUN 73 H Creatinine 1.6 H Est GFR ( Amer) 51 Est GFR (Non-Af Amer) 42 POC Glucose (mg/dL) Random Glucose 115 H Lactic Acid Calcium 7.3 L Phosphorus 5.5 H Magnesium 2.2 Total Bilirubin 3.3 H AST 25 ALT 56 Alkaline Phosphatase 45 Total Creatine Kinase 56 CK-MB (Mass) 1.34 Troponin I 0.2240 H* NT-Pro-B Natriuret Pep Total Protein 5.0 L Albumin 2.2 L D Globulin 2.8 Albumin/Globulin Ratio 0.8 L Arterial Blood Potassium Urine Color Urine Clarity Urine pH Ur Specific [place] Urine Protein Urine Glucose (UA) Urine Ketones Urine Blood Urine Nitrate Urine Bilirubin Urine Urobilinogen Ur Leukocyte Esterase Urine WBC (Auto) Urine RBC (Auto) Ur Squamous Epith Cells Amorphous Sediment Urine Bacteria Hyaline Casts Influenza Typ A,B (EIA) Negative for flu a/b Blood Type Antibody Screen DELFINA, Poly Interpret 04/01/18 15:56 WBC RBC Hgb Hct MCV MCH MCHC RDW Plt Count MPV Neut % (Auto) Lymph % (Auto) Starr % (Auto) Eos % (Auto) Baso % (Auto) Neut # (Auto) Lymph # (Auto) Starr # (Auto) Eos # (Auto) Baso # (Auto) Differential Comment PT INR APTT Puncture Site pCO2 pO2 HCO3 ABG pH ABG Total CO2 ABG O2 Saturation ABG Base Excess Ricky Test ABG Potassium A-a O2 Difference Respiratory Index Sodium Chloride Glucose Lactate Vent Mode Mechanical Rate FiO2 Tidal Volume PEEP Potassium Carbon Dioxide Anion Gap BUN Creatinine Est GFR ( Amer) Est GFR (Non-Af Amer) POC Glucose (mg/dL) Random Glucose Lactic Acid 1.0 Calcium Phosphorus Magnesium Total Bilirubin AST ALT Alkaline Phosphatase Total Creatine Kinase CK-MB (Mass) Troponin I NT-Pro-B Natriuret Pep Total Protein Albumin Globulin Albumin/Globulin Ratio Arterial Blood Potassium Urine Color Urine Clarity Urine pH Ur Specific [place] Urine Protein Urine Glucose (UA) Urine Ketones Urine Blood Urine Nitrate Urine Bilirubin Urine Urobilinogen Ur Leukocyte Esterase Urine WBC (Auto) Urine RBC (Auto) Ur Squamous Epith Cells Amorphous Sediment Urine Bacteria Hyaline Casts Influenza Typ A,B (EIA) Blood Type Antibody Screen DELFINA, Poly Interpret
[2018-04-01] MEDS ORDERED: Potassium Chloride 20 mEq/15 ml LIQ UD PO ONE (17:39)
[2018-04-01] MEDS ORDERED: Imipenem/Cilastatin 500 MG in Dextrose 5% In Water 100 ML IVPB SCH (17:45)
[2018-04-01] MEDS: Atovaquone 750 mg/5 ml Susp UD PO SCH (18:42)
[2018-04-01] MEDS: Imipenem/Cilastatin 500 MG in Sodium Chloride 100 ML IVPB SCH (18:42)
[2018-04-01] MEDS: DEXTROSE 5% IVPB SCH (18:43)
[2018-04-01] MEDS: WATER IVPB SCH (18:43)
[2018-04-01] MEDS: TELAVANCIN HYDROCHLORIDE IVPB SCH (18:43)
[2018-04-01] MEDS: Albuterol 0.083% Inhal Sol (2.5 mg/3 mL) UD IH SCH (19:00)
--- NOTE | 2018-04-01 19:59 | CP.PCM.HP ---
Past Patient History - Past Medical History & Family History Past Medical History?: Yes - Past Social History Smoking Status: Never Smoked - CARDIAC Hx Atrial Fibrillation: Yes Hx Congestive Heart Failure: Yes Hx Hypercholesterolemia: Yes Hx Hypertension: Yes Hx Mitral Valve Prolapse: Yes Hx Pacemaker: Yes - PULMONARY Hx Respiratory Disorders: No - NEUROLOGICAL Hx Neurological Disorder: No - HEENT Hx HEENT Problems: No - RENAL Hx Chronic Kidney Disease: No - ENDOCRINE/METABOLIC Hx Endocrine Disorders: No - HEMATOLOGICAL/ONCOLOGICAL Hx Blood Disorders: No Hx Leukemia: Yes - INTEGUMENTARY Hx Dermatological Problems: No - MUSCULOSKELETAL/RHEUMATOLOGICAL Hx Falls: No - GASTROINTESTINAL Hx Gastrointestinal Disorders: No - GENITOURINARY/GYNECOLOGICAL Hx Genitourinary Disorders: No - PSYCHIATRIC Hx Substance Use: No - SURGICAL HISTORY Hx Coronary Artery Bypass Graft: Yes - ANESTHESIA Hx Anesthesia: Yes Hx Anesthesia Reactions: No Hx Malignant Hyperthermia: No Meds Allergies/Adverse Reactions: Allergies Allergy/AdvReac Type Severity Reaction Status Date / Time No Known Allergies Allergy Verified 04/01/18 09:48 Physical Exam - Constitutional Appears: Well - Head Exam Head Exam: ATRAUMATIC, NORMAL INSPECTION, NORMOCEPHALIC - Eye Exam Eye Exam: EOMI, Normal appearance, PERRL Pupil Exam: NORMAL ACCOMODATION, PERRL - ENT Exam ENT Exam: Mucous Membranes Moist, Normal Exam - Neck Exam Neck exam: Positive for: Normal Inspection - Respiratory Exam Respiratory Exam: Decreased Breath Sounds - Cardiovascular Exam Cardiovascular Exam: REGULAR RHYTHM, +S1, +S2 - GI/Abdominal Exam GI & Abdominal Exam: Diminished Bowel Sounds, Soft - Rectal Exam Rectal Exam: Deferred Results - Vital Signs Recent Vital Signs: Last Vital Signs Temp 97.6 F 04/01/18 16:00 Pulse 150 H 04/01/18 19:30 Resp 26 H 04/01/18 19:30 BP 138/99 H 04/01/18 19:29 Pulse Ox 85 L 04/01/18 19:29 - Labs Result Diagrams: 04/01/18 15:56 04/01/18 15:56 Labs: Laboratory Results - last 24 hr 04/01/18 04/01/18 04/01/18 09:55 10:09 10:09 WBC 22.1 H RBC 2.40 L Hgb 8.7 L D Hct 25.9 L MCV 108.0 H D MCH 36.4 H MCHC 33.7 RDW 15.9 H Plt Count 65 L D MPV 10.2 Neut % (Auto) 63.7 Lymph % (Auto) 34.2 Humphreys % (Auto) 2.1 Eos % (Auto) 0.0 Baso % (Auto) 0.0 Neut # (Auto) 14.1 H Lymph # (Auto) 7.6 H Humphreys # (Auto) 0.5 Eos # (Auto) 0.0 Baso # (Auto) 0.0 Differential Comment PT 18.5 H INR 1.7 APTT 28 Puncture Site pCO2 pO2 HCO3 ABG pH ABG Total CO2 ABG O2 Saturation ABG Base Excess Ricky Test ABG Potassium A-a O2 Difference Respiratory Index Sodium Chloride Glucose Lactate Vent Mode Mechanical Rate FiO2 Tidal Volume PEEP Potassium Carbon Dioxide Anion Gap BUN Creatinine Est GFR ( Amer) Est GFR (Non-Af Amer) POC Glucose (mg/dL) 123 H Random Glucose Lactic Acid Calcium Phosphorus Magnesium Total Bilirubin AST ALT Alkaline Phosphatase Total Creatine Kinase CK-MB (Mass) Troponin I NT-Pro-B Natriuret Pep Total Protein Albumin Globulin Albumin/Globulin Ratio Arterial Blood Potassium Urine Color Urine Clarity Urine pH Ur Specific [place] Urine Protein Urine Glucose (UA) Urine Ketones Urine Blood Urine Nitrate Urine Bilirubin Urine Urobilinogen Ur Leukocyte Esterase Urine WBC (Auto) Urine RBC (Auto) Ur Squamous Epith Cells Amorphous Sediment Urine Bacteria Hyaline Casts Influenza Typ A,B (EIA) Blood Type Antibody Screen DELFINA, Poly Interpret 04/01/18 04/01/18 04/01/18 10:09 10:36 10:46 WBC RBC Hgb Hct MCV MCH MCHC RDW Plt Count MPV Neut % (Auto) Lymph % (Auto) Humphreys % (Auto) Eos % (Auto) Baso % (Auto) Neut # (Auto) Lymph # (Auto) Humphreys # (Auto) Eos # (Auto) Baso # (Auto) Differential Comment PT INR APTT Puncture Site Lra pCO2 34 L pO2 94 HCO3 24.5 ABG pH 7.44 ABG Total CO2 24.1 ABG O2 Saturation 99.1 H ABG Base Excess -0.5 Ricky Test Pos ABG Potassium 3.5 L A-a O2 Difference 577.0 Respiratory Index 6.1 Sodium 140.0 142 Chloride 111.0 H 105 Glucose 109 Lactate 1.3 Vent Mode Prvc Mechanical Rate 16 FiO2 100.0 Tidal Volume 500 PEEP 5 Potassium 3.4 L Carbon Dioxide 24 Anion Gap 17 BUN 79 H Creatinine 1.9 H Est GFR ( Amer) 42 Est GFR (Non-Af Amer) 35 POC Glucose (mg/dL) Random Glucose 118 H Lactic Acid Calcium 8.3 L Phosphorus 5.7 H Magnesium 2.4 H Total Bilirubin 3.6 H AST 31 ALT 62 Alkaline Phosphatase 60 Total Creatine Kinase 45 L CK-MB (Mass) 0.28 Troponin I 0.2140 H* NT-Pro-B Natriuret Pep 9300 H Total Protein 6.2 L Albumin 2.9 L D Globulin 3.3 Albumin/Globulin Ratio 0.9 L Arterial Blood Potassium 3.5 L Urine Color Urine Clarity Urine pH Ur Specific [place] Urine Protein Urine Glucose (UA) Urine Ketones Urine Blood Urine Nitrate Urine Bilirubin Urine Urobilinogen Ur Leukocyte Esterase Urine WBC (Auto) Urine RBC (Auto) Ur Squamous Epith Cells Amorphous Sediment Urine Bacteria Hyaline Casts Influenza Typ A,B (EIA) Blood Type Antibody Screen DELFINA, Poly Interpret 04/01/18 04/01/18 04/01/18 11:17 11:17 13:20 WBC RBC Hgb Hct MCV MCH MCHC RDW Plt Count MPV Neut % (Auto) Lymph % (Auto) Humphreys % (Auto) Eos % (Auto) Baso % (Auto) Neut # (Auto) Lymph # (Auto) Humphreys # (Auto) Eos # (Auto) Baso # (Auto) Differential Comment PT INR APTT Puncture Site Rb pCO2 28 L pO2 203 H HCO3 24.3 ABG pH 7.49 H ABG Total CO2 22.2 ABG O2 Saturation 99.3 H ABG Base Excess -0.9 Ricky Test Na ABG Potassium 2.9 L A-a O2 Difference 475.0 Respiratory Index 2.3 Sodium 141.0 Chloride 113.0 H Glucose 115 H Lactate 1.0 Vent Mode Mechanical Rate 18 FiO2 100.0 Tidal Volume 500 PEEP 5 Potassium Carbon Dioxide Anion Gap BUN Creatinine Est GFR ( Amer) Est GFR (Non-Af Amer) POC Glucose (mg/dL) Random Glucose Lactic Acid Calcium Phosphorus Magnesium Total Bilirubin AST ALT Alkaline Phosphatase Total Creatine Kinase CK-MB (Mass) Troponin I NT-Pro-B Natriuret Pep Total Protein Albumin Globulin Albumin/Globulin Ratio Arterial Blood Potassium 2.9 L Urine Color Yellow Urine Clarity Hazy Urine pH 5.0 Ur Specific [place] 1.009 Urine Protein Negative Urine Glucose (UA) Normal Urine Ketones Negative Urine Blood 1+ H Urine Nitrate Negative Urine Bilirubin Negative Urine Urobilinogen Normal Ur Leukocyte Esterase 1+ H Urine WBC (Auto) 3 Urine RBC (Auto) 2 Ur Squamous Epith Cells < 1 Amorphous Sediment Rare H Urine Bacteria Occ H Hyaline Casts 11-20 H Influenza Typ A,B (EIA) Blood Type A POSITIVE Antibody Screen Positive DELFINA, Poly Interpret Positive H 04/01/18 04/01/18 04/01/18 13:23 15:56 15:56 WBC 21.4 H RBC 2.04 L Hgb 7.5 L Hct 22.7 L MCV 111.1 H D MCH 36.7 H MCHC 33.1 RDW 16.0 H Plt Count 57 L MPV 10.1 Neut % (Auto) 64.7 Lymph % (Auto) 32.8 Humphreys % (Auto) 2.2 Eos % (Auto) 0.1 Baso % (Auto) 0.2 Neut # (Auto) 9.6 H Lymph # (Auto) 4.8 H Humphreys # (Auto) 0.3 Eos # (Auto) 0.0 Baso # (Auto) 0.0 Differential Comment PT INR APTT Puncture Site pCO2 pO2 HCO3 ABG pH ABG Total CO2 ABG O2 Saturation ABG Base Excess Ricky Test ABG Potassium A-a O2 Difference Respiratory Index Sodium 143 Chloride 110 H Glucose Lactate Vent Mode Mechanical Rate FiO2 Tidal Volume PEEP Potassium 3.3 L Carbon Dioxide 22 Anion Gap 14 BUN 73 H Creatinine 1.6 H Est GFR ( Amer) 51 Est GFR (Non-Af Amer) 42 POC Glucose (mg/dL) Random Glucose 115 H Lactic Acid Calcium 7.3 L Phosphorus 5.5 H Magnesium 2.2 Total Bilirubin 3.3 H AST 25 ALT 56 Alkaline Phosphatase 45 Total Creatine Kinase 56 CK-MB (Mass) 1.34 Troponin I 0.2240 H* NT-Pro-B Natriuret Pep Total Protein 5.0 L Albumin 2.2 L D Globulin 2.8 Albumin/Globulin Ratio 0.8 L Arterial Blood Potassium Urine Color Urine Clarity Urine pH Ur Specific [place] Urine Protein Urine Glucose (UA) Urine Ketones Urine Blood Urine Nitrate Urine Bilirubin Urine Urobilinogen Ur Leukocyte Esterase Urine WBC (Auto) Urine RBC (Auto) Ur Squamous Epith Cells Amorphous Sediment Urine Bacteria Hyaline Casts Influenza Typ A,B (EIA) Negative for flu a/b Blood Type Antibody Screen DELFINA, Poly Interpret 04/01/18 04/01/18 15:56 17:32 WBC RBC Hgb Hct MCV MCH MCHC RDW Plt Count MPV Neut % (Auto) Lymph % (Auto) Humph[place]ys % (Auto) Eos % (Auto) Baso % (Auto) Neut # (Auto) Lymph # (Auto) Humphreys # (Auto) Eos # (Auto) Baso # (Auto) Differential Comment PT INR APTT Puncture Site pCO2 pO2 HCO3 ABG pH ABG Total CO2 ABG O2 Saturation ABG Base Excess Ricky Test ABG Potassium A-a O2 Difference Respiratory Index Sodium Chloride Glucose Lactate Vent Mode Mechanical Rate FiO2 Tidal Volume PEEP Potassium Carbon Dioxide Anion Gap BUN Creatinine Est GFR ( Amer) Est GFR (Non-Af Amer) POC Glucose (mg/dL) 123 H Random Glucose Lactic Acid 1.0 Calcium Phosphorus Magnesium Total Bilirubin AST ALT Alkaline Phosphatase Total Creatine Kinase CK-MB (Mass) Troponin I NT-Pro-B Natriuret Pep Total Protein Albumin Globulin Albumin/Globulin Ratio Arterial Blood Potassium Urine Color Urine Clarity Urine pH Ur Specific [place] Urine Protein Urine Glucose (UA) Urine Ketones Urine Blood Urine Nitrate Urine Bilirubin Urine Urobilinogen Ur Leukocyte Esterase Urine WBC (Auto) Urine RBC (Auto) Ur Squamous Epith Cells Amorphous Sediment Urine Bacteria Hyaline Casts Influenza Typ A,B (EIA) Blood Type Antibody Screen DELFINA, Poly Interpret
[2018-04-01] MEDS: Phenylephrine 30 MG in Sodium Chloride 0.9% 250 ML IV PRN (21:15)
[2018-04-01 21:25] VITALS: PULSE 135
[2018-04-01 22:34] LABS: HEMOGLOBIN 7.8 g/dL (12.0-18.0); MEAN CELL VOLUME 109.2 fL (80.0-94.0); MEAN CORPUSCULAR HEMOGLOBIN 36.1 pg (27.0-31.0); MEAN PLATELET VOLUME 9.5 fL (7.2-11.7); RBC 2.17 Mil/uL (4.40-5.90); RED CELL DISTRIBUTION WIDTH 16.1 % (11.5-14.5); WHITE BLOOD COUNT 24.8 K/uL (4.8-10.8)
[2018-04-01 23:15] LABS: CK-MB 1.67 ng/mL (0.0-3.38)
[2018-04-01 23:16] LABS: TROPONIN I 0.262 ng/mL (0.00-0.120)
--- NOTE | 2018-04-01 23:24 | CP.PCM.CON ---
History of Present Illness - History of Present Illness History of Present Illness: 77M with Hx of CABG, MVR, A Fib, HTN, systolic CHF s/p AICD Admitted for respratory failure, Sepsis and anema Past Patient History - Past Medical History & Family History Past Medical History?: Yes - Past Social History Smoking Status: Never Smoked - CARDIAC Hx Atrial Fibrillation: Yes Hx Congestive Heart Failure: Yes Hx Hypercholesterolemia: Yes Hx Hypertension: Yes Hx Mitral Valve Prolapse: Yes Hx Pacemaker: Yes - PULMONARY Hx Respiratory Disorders: No - NEUROLOGICAL Hx Neurological Disorder: No - HEENT Hx HEENT Problems: No - RENAL Hx Chronic Kidney Disease: No - ENDOCRINE/METABOLIC Hx Endocrine Disorders: No - HEMATOLOGICAL/ONCOLOGICAL Hx Blood Disorders: No Hx Leukemia: Yes - INTEGUMENTARY Hx Dermatological Problems: No - MUSCULOSKELETAL/RHEUMATOLOGICAL Hx Falls: No - GASTROINTESTINAL Hx Gastrointestinal Disorders: No - GENITOURINARY/GYNECOLOGICAL Hx Genitourinary Disorders: No - PSYCHIATRIC Hx Substance Use: No - SURGICAL HISTORY Hx Coronary Artery Bypass Graft: Yes - ANESTHESIA Hx Anesthesia: Yes Hx Anesthesia Reactions: No Hx Malignant Hyperthermia: No Meds Allergies/Adverse Reactions: Allergies Allergy/AdvReac Type Severity Reaction Status Date / Time No Known Allergies Allergy Verified 04/01/18 09:48 - Medications Medications: Current Medications Acetaminophen (Tylenol 325mg Tab) 650 mg PO Q6 PRN PRN Reason: Fever >100.4 F Albumin Human (Albumin Human 25% (12.5 Gm/50 Ml)) 12.5 gm IV Q12 [facility] Last Admin: 04/01/18 21:41 Dose: 12.5 gm Albuterol Sulfate (Albuterol 0.083% Inhal Elisa (2.5 Mg/3 Ml) Ud) 2.5 mg IH RQ6 [facility] Last Admin: 04/01/18 19:00 Dose: Not Given Atovaquone (Mepron) 750 mg PO BID JACK PRN Reason: Protocol Last Admin: 04/01/18 18:42 Dose: 750 mg Famotidine (Pepcid) 20 mg IVP Q24H JACK Last Admin: 04/01/18 21:21 Dose: 20 mg Norepinephrine Bitartrate 4 mg (/ Sodium Chloride) 254 mls @ 15.24 mls/hr IV .[id number] PRN; Protocol; 4 MCG/MIN PRN Reason: TITRATE PER MD ORDER Last Titration: 04/01/18 22:19 Dose: 1 mcg/min, 3.81 mls/hr Vasopressin 40 units/ Sodium (Chloride) 40 mls @ 1.2 mls/hr IV .Q24H PRN; Protocol; 0.02 UNITS/MIN PRN Reason: TITRATE PER PROTOCOL Last Titration: 04/01/18 17:00 Dose: 0.04 units/min, 2.4 mls/hr Sodium Chloride (Sodium Chloride 0.9%) 1,000 mls @ 100 mls/hr IV .Q10H [facility] Last Admin: 04/01/18 16:00 Dose: Not Given Telavancin 700 mg/ Dextrose 100 mls @ 100 mls/hr IVPB Q24H JACK PRN Reason: Protocol Last Admin: 04/01/18 18:43 Dose: 100 mls/hr Imipenem/Cilastatin Sodium 500 (mg/ Sodium Chloride) 100 mls @ 100 mls/hr IVPB Q8H JACK PRN Reason: Protocol Last Admin: 04/01/18 18:42 Dose: 100 mls/hr Phenylephrine HCl 30 mg/ (Sodium Chloride) 253 mls @ 10.12 mls/hr IV .Q24H PRN ; Protocol; 20 MCG/MIN PRN Reason: TITRATE PER MD ORDER Last Titration: 04/01/18 22:59 Dose: 30 mcg/min, 15.18 mls/hr Methylprednisolone (Solu-Medrol) 40 mg IVP Q12H [facility] Last Admin: 04/01/18 15:40 Dose: 40 mg Midazolam HCl (Versed Inj) 1 mg IVP Q3 PRN PRN Reason: Agitation Last Admin: 04/01/18 21:34 Dose: 1 mg Results - Vital Signs Recent Vital Signs: Last Vital Signs Temp 99.6 F 04/01/18 20:00 Pulse 132 H 04/01/18 23:00 Resp 25 H 04/01/18 23:00 BP 106/47 L 04/01/18 22:57 Pulse Ox 97 04/01/18 23:00 - Labs Result Diagrams: 04/01/18 22:28 04/01/18 15:56 Labs: Laboratory Results - last 24 hr 04/01/18 04/01/18 04/01/18 09:55 10:09 10:09 WBC 22.1 H RBC 2.40 L Hgb 8.7 L D Hct 25.9 L MCV 108.0 H D MCH 36.4 H MCHC 33.7 RDW 15.9 H Plt Count 65 L D MPV 10.2 Neut % (Auto) 63.7 Lymph % (Auto) 34.2 [place] % (Auto) 2.1 Eos % (Auto) 0.0 Baso % (Auto) 0.0 Neut # (Auto) 14.1 H Lymph # (Auto) 7.6 H [place] # (Auto) 0.5 Eos # (Auto) 0.0 Baso # (Auto) 0.0 Differential Comment PT 18.5 H INR 1.7 APTT 28 Puncture Site pCO2 pO2 HCO3 ABG pH ABG Total CO2 ABG O2 Saturation ABG Base Excess Ricky Test ABG Potassium A-a O2 Difference Respiratory Index Sodium Chloride Glucose Lactate Vent Mode Mechanical Rate FiO2 Tidal Volume PEEP Potassium Carbon Dioxide Anion Gap BUN Creatinine Est GFR ( Amer) Est GFR (Non-Af Amer) POC Glucose (mg/dL) 123 H Random Glucose Lactic Acid Calcium Phosphorus Magnesium Total Bilirubin AST ALT Alkaline Phosphatase Total Creatine Kinase CK-MB (Mass) Troponin I NT-Pro-B Natriuret Pep Total Protein Albumin Globulin Albumin/Globulin Ratio Arterial Blood Potassium Urine Color Urine Clarity Urine pH Ur Specific [place] Urine Protein Urine Glucose (UA) Urine Ketones Urine Blood Urine Nitrate Urine Bilirubin Urine Urobilinogen Ur Leukocyte Esterase Urine WBC (Auto) Urine RBC (Auto) Ur Squamous Epith Cells Amorphous Sediment Urine Bacteria Hyaline Casts Influenza Typ A,B (EIA) Blood Type Antibody Screen Antibody Identification Elution DELFINA, Poly Interpret 04/01/18 04/01/18 04/01/18 10:09 10:36 10:46 WBC RBC Hgb Hct MCV MCH MCHC RDW Plt Count MPV Neut % (Auto) Lymph % (Auto) [place] % (Auto) Eos % (Auto) Baso % (Auto) Neut # (Auto) Lymph # (Auto) [place] # (Auto) Eos # (Auto) Baso # (Auto) Differential Comment PT INR APTT Puncture Site Lra pCO2 34 L pO2 94 HCO3 24.5 ABG pH 7.44 ABG Total CO2 24.1 ABG O2 Saturation 99.1 H ABG Base Excess -0.5 Ricky Test Pos ABG Potassium 3.5 L A-a O2 Difference 577.0 Respiratory Index 6.1 Sodium 140.0 142 Chloride 111.0 H 105 Glucose 109 Lactate 1.3 Vent Mode Prvc Mechanical Rate 16 FiO2 100.0 Tidal Volume 500 PEEP 5 Potassium 3.4 L Carbon Dioxide 24 Anion Gap 17 BUN 79 H Creatinine 1.9 H Est GFR ( Amer) 42 Est GFR (Non-Af Amer) 35 POC Glucose (mg/dL) Random Glucose 118 H Lactic Acid Calcium 8.3 L Phosphorus 5.7 H Magnesium 2.4 H Total Bilirubin 3.6 H AST 31 ALT 62 Alkaline Phosphatase 60 Total Creatine Kinase 45 L CK-MB (Mass) 0.28 Troponin I 0.2140 H* NT-Pro-B Natriuret Pep 9300 H Total Protein 6.2 L Albumin 2.9 L D Globulin 3.3 Albumin/Globulin Ratio 0.9 L Arterial Blood Potassium 3.5 L Urine Color Urine Clarity Urine pH Ur Specific [place] Urine Protein Urine Glucose (UA) Urine Ketones Urine Blood Urine Nitrate Urine Bilirubin Urine Urobilinogen Ur Leukocyte Esterase Urine WBC (Auto) Urine RBC (Auto) Ur Squamous Epith Cells Amorphous Sediment Urine Bacteria Hyaline Casts Influenza Typ A,B (EIA) Blood Type Antibody Screen Antibody Identification Elution DELFINA, Poly Interpret 04/01/18 04/01/18 04/01/18 11:17 11:17 12:55 WBC RBC Hgb Hct MCV MCH MCHC RDW Plt Count MPV Neut % (Auto) Lymph % (Auto) [place] % (Auto) Eos % (Auto) Baso % (Auto) Neut # (Auto) Lymph # (Auto) [place] # (Auto) Eos # (Auto) Baso # (Auto) Differential Comment PT INR APTT Puncture Site pCO2 pO2 HCO3 ABG pH ABG Total CO2 ABG O2 Saturation ABG Base Excess Ricky Test ABG Potassium A-a O2 Difference Respiratory Index Sodium Chloride Glucose Lactate Vent Mode Mechanical Rate FiO2 Tidal Volume PEEP Potassium Carbon Dioxide Anion Gap BUN Creatinine Est GFR ( Amer) Est GFR (Non-Af Amer) POC Glucose (mg/dL) 112 H Random Glucose Lactic Acid Calcium Phosphorus Magnesium Total Bilirubin AST ALT Alkaline Phosphatase Total Creatine Kinase CK-MB (Mass) Troponin I NT-Pro-B Natriuret Pep Total Protein Albumin Globulin Albumin/Globulin Ratio Arterial Blood Potassium Urine Color Yellow Urine Clarity Hazy Urine pH 5.0 Ur Specific [place] 1.009 Urine Protein Negative Urine Glucose (UA) Normal Urine Ketones Negative Urine Blood 1+ H Urine Nitrate Negative Urine Bilirubin Negative Urine Urobilinogen Normal Ur Leukocyte Esterase 1+ H Urine WBC (Auto) 3 Urine RBC (Auto) 2 Ur Squamous Epith Cells < 1 Amorphous Sediment Rare H Urine Bacteria Occ H Hyaline Casts 11-20 H Influenza Typ A,B (EIA) Blood Type A POSITIVE Antibody Screen Positive Antibody Identification Non Specific Antibody Elution Positive DELFINA, Poly Interpret Positive H 04/01/18 04/01/18 04/01/18 13:20 13:23 15:56 WBC RBC Hgb Hct MCV MCH MCHC RDW Plt Count MPV Neut % (Auto) Lymph % (Auto) [place] % (Auto) Eos % (Auto) Baso % (Auto) Neut # (Auto) Lymph # (Auto) [place] # (Auto) Eos # (Auto) Baso # (Auto) Differential Comment PT INR APTT Puncture Site Rb pCO2 28 L pO2 203 H HCO3 24.3 ABG pH 7.49 H ABG Total CO2 22.2 ABG O2 Saturation 99.3 H ABG Base Excess -0.9 Ricky Test Na ABG Potassium 2.9 L A-a O2 Difference 475.0 Respiratory Index 2.3 Sodium 141.0 143 Chloride 113.0 H 110 H Glucose 115 H Lactate 1.0 Vent Mode Mechanical Rate 18 FiO2 100.0 Tidal Volume 500 PEEP 5 Potassium 3.3 L Carbon Dioxide 22 Anion Gap 14 BUN 73 H Creatinine 1.6 H Est GFR ( Amer) 51 Est GFR (Non-Af Amer) 42 POC Glucose (mg/dL) Random Glucose 115 H Lactic Acid Calcium 7.3 L Phosphorus 5.5 H Magnesium 2.2 Total Bilirubin 3.3 H AST 25 ALT 56 Alkaline Phosphatase 45 Total Creatine Kinase 56 CK-MB (Mass) 1.34 Troponin I 0.2240 H* NT-Pro-B Natriuret Pep Total Protein 5.0 L Albumin 2.2 L D Globulin 2.8 Albumin/Globulin Ratio 0.8 L Arterial Blood Potassium 2.9 L Urine Color Urine Clarity Urine pH Ur Specific [place] Urine Protein Urine Glucose (UA) Urine Ketones Urine Blood Urine Nitrate Urine Bilirubin Urine Urobilinogen Ur Leukocyte Esterase Urine WBC (Auto) Urine RBC (Auto) Ur Squamous Epith Cells Amorphous Sediment Urine Bacteria Hyaline Casts Influenza Typ A,B (EIA) Negative for flu a/b Blood Type Antibody Screen Antibody Identification Elution DELFINA, Poly Interpret 04/01/18 04/01/18 04/01/18 15:56 15:56 17:32 WBC 21.4 H RBC 2.04 L Hgb 7.5 L Hct 22.7 L MCV 111.1 H D MCH 36.7 H MCHC 33.1 RDW 16.0 H Plt Count 57 L MPV 10.1 Neut % (Auto) 64.7 Lymph % (Auto) 32.8 [place] % (Auto) 2.2 Eos % (Auto) 0.1 Baso % (Auto) 0.2 Neut # (Auto) 9.6 H Lymph # (Auto) 4.8 H [place] # (Auto) 0.3 Eos # (Auto) 0.0 Baso # (Auto) 0.0 Differential Comment PT INR APTT Puncture Site pCO2 pO2 HCO3 ABG pH ABG Total CO2 ABG O2 Saturation ABG Base Excess Ricky Test ABG Potassium A-a O2 Difference Respiratory Index Sodium Chloride Glucose Lactate Vent Mode Mechanical Rate FiO2 Tidal Volume PEEP Potassium Carbon Dioxide Anion Gap BUN Creatinine Est GFR ( Amer) Est GFR (Non-Af Amer) POC Glucose (mg/dL) 123 H Random Glucose Lactic Acid 1.0 Calcium Phosphorus Magnesium Total Bilirubin AST ALT Alkaline Phosphatase Total Creatine Kinase CK-MB (Mass) Troponin I NT-Pro-B Natriuret Pep Total Protein Albumin Globulin Albumin/Globulin Ratio Arterial Blood Potassium Urine Color Urine Clarity Urine pH Ur Specific [place] Urine Protein Urine Glucose (UA) Urine Ketones Urine Blood Urine Nitrate Urine Bilirubin Urine Urobilinogen Ur Leukocyte Esterase Urine WBC (Auto) Urine RBC (Auto) Ur Squamous Epith Cells Amorphous Sediment Urine Bacteria Hyaline Casts Influenza Typ A,B (EIA) Blood Type Antibody Screen Antibody Identification Elution DELFINA, Poly Interpret 04/01/18 04/01/18 22:28 22:28 WBC 24.8 H RBC 2.17 L Hgb 7.8 L Hct 23.7 L MCV 109.2 H MCH 36.1 H MCHC 33.0 RDW 16.1 H Plt Count 66 L MPV 9.5 Neut % (Auto) Lymph % (Auto) [place] % (Auto) Eos % (Auto) Baso % (Auto) Neut # (Auto) Lymph # (Auto) [place] # (Auto) Eos # (Auto) Baso # (Auto) Differential Comment PT INR APTT Puncture Site pCO2 pO2 HCO3 ABG pH ABG Total CO2 ABG O2 Saturation ABG Base Excess Ricky Test ABG Potassium A-a O2 Difference Respiratory Index Sodium Chloride Glucose Lactate Vent Mode Mechanical Rate FiO2 Tidal Volume PEEP Potassium Carbon Dioxide Anion Gap BUN Creatinine Est GFR ( Amer) Est GFR (Non-Af Amer) POC Glucose (mg/dL) Random Glucose Lactic Acid Calcium Phosphorus Magnesium Total Bilirubin AST ALT Alkaline Phosphatase Total Creatine Kinase 56 CK-MB (Mass) 1.67 Troponin I 0.2620 H* NT-Pro-B Natriuret Pep Total Protein Albumin Globulin Albumin/Globulin Ratio Arterial Blood Potassium Urine Color Urine Clarity Urine pH Ur Specific [place] Urine Protein Urine Glucose (UA) Urine Ketones Urine Blood Urine Nitrate Urine Bilirubin Urine Urobilinogen Ur Leukocyte Esterase Urine WBC (Auto) Urine RBC (Auto) Ur Squamous Epith Cells Amorphous Sediment Urine Bacteria Hyaline Casts Influenza Typ A,B (EIA) Blood Type Antibody Screen Antibody Identification Elution DELFINA, Poly Interpret
[2018-04-02] MEDS: Sodium Chloride 0.9% 1,000 ML IV SCH ×3 (00:46→21:16)
[2018-04-02] MEDS: Albuterol 0.083% Inhal Sol (2.5 mg/3 mL) UD IH SCH ×2 (01:17→08:00)
[2018-04-02] MEDS: Imipenem/Cilastatin 500 MG in Sodium Chloride 100 ML IVPB SCH ×3 (01:20→18:02)
[2018-04-02] MEDS: MethylPREDNISolone 40 mg Vial IVP SCH ×2 (04:08→16:51)
[2018-04-02 05:47] LABS: ARTERIAL BLOOD GAS HCO3 21.4 mmol/L (21-28); ARTERIAL BLOOD GAS HEMOGLOBIN 8.6 g/dL (11.7-17.4); ARTERIAL BLOOD GAS O2 SAT 97.3 % (95-98); ARTERIAL BLOOD GAS PCO2 32 mm/Hg (35-45); ARTERIAL BLOOD GAS PO2 70 mm/Hg (80-100); ARTERIAL BLOOD GAS TCO2 20.8 mmol/L (22-28)
[2018-04-02 06:05] LABS: BASO % 0.2 % (0.0-2.0); MONO # 0.3 K/uL (0.0-0.8); RBC 2.34 Mil/uL (4.40-5.90)
[2018-04-02 06:24] LABS: HEMOGLOBIN 8.4 g/dL (12.0-18.0); LYMPH # 6.5 K/uL (1.0-4.3); LYMPH % 27.4 % (20.0-40.0); MEAN CELL VOLUME 107.4 fL (80.0-94.0); MEAN CORPUSCULAR HEMOGLOBIN 35.7 pg (27.0-31.0); MEAN CORPUSCULAR HGB CONC 33.2 g/dL (33.0-37.0); MONO % 1.2 % (0.0-10.0); NEUT # 16.9 K/uL (1.8-7.0); NEUT % 71.2 % (50.0-75.0); RED CELL DISTRIBUTION WIDTH 19.6 % (11.5-14.5); WHITE BLOOD COUNT 23.7 K/uL (4.8-10.8)
[2018-04-02 06:29] LABS: ALB/GLOB RATIO 0.9 (1.0-2.1); ALBUMIN 2.6 g/dL (3.5-5.0); CALCIUM 7.9 mg/dl (8.6-10.4)
[2018-04-02] MEDS: Atovaquone 750 mg/5 ml Susp UD PO SCH ×2 (09:19→18:02)
[2018-04-02] MEDS: Albumin Human 25% (12.5 gm/50 ml) IV SCH ×2 (09:19→22:10)
--- NOTE | 2018-04-02 10:19 | CP.CCUPN ---
<Padmini Mccarthy - Last Filed: 04/02/18 15:20> CCU Subjective - Physician Review Subjective (Free Text): 04/02/18 10:56 Patient seen and examined at bedside. Patient is intubated and sedated. present at bedside. [place] tinged secretions noted from endotracheal tube. CCU Objective - Vital Signs / Intake & Output Vital Signs (Last 4 hours): Vital Signs Temp Pulse Resp BP Pulse Ox 04/02/18 08:00 99.8 F H 100 H 19 94 L 04/02/18 07:57 109 H 20 93/52 L 95 04/02/18 07:41 100 H 18 118/60 97 04/02/18 07:26 103 H 17 108/56 L 96 04/02/18 07:11 101 H 18 97/58 L 96 04/02/18 07:00 101 H 18 96 04/02/18 06:56 99 H 18 95/51 L 96 04/02/18 06:41 102 H 18 119/51 L 96 04/02/18 06:26 98 H 18 110/56 L 97 Intake and Output (Last 8hrs): Intake & Output 04/01/18 04/02/18 04/02/18 22:59 06:59 14:59 Intake Total 1267.7 1952.8 276.8 Output Total 375 1375 225 Balance 892.7 577.8 51.8 Weight 177 lb 11.081 oz Intake: IV 111 66 160 Intake, IV Amount 1056.7 1461.8 116.8 Right Antecubital 700 600 Right Distal Port 216 170 15 Internal Jugular Right Medial Port 123.9 673.8 100 Internal Jugular Right Proximal Port 16.8 18.0 1.8 Internal Jugular Tube Feeding 100 0 0 Blood Product 325 Red Blood Cells Cpd As1 325 Lr Unit [id number] Other 100 Red Blood Cells Cpd As1 100 Lr Unit [id number] Output: Urine 375 1375 225 Urethral (Reese) 375 1375 225 Stool 0 Other: # Bowel Movements 1 1 - Physical Exam Physical Exam Limitations: Positive for: Altered Mental Status (Intubated, sedated on Versed) Head: Positive for: Atraumatic, Normocephalic Extroacular Muscles: Positive for: Other (Unable to assess EOMs since patient is sedated. ) Ears: Positive for: Normal Mouth: Positive for: Moist Mucous Membranes Pharnyx: Positive for: Other (OGT, ETT in place. ) Nose (External): Positive for: Atraumatic Neck: Positive for: Other (Right IJ TLC in place) Respiratory/Chest: Positive for: Rhonchi (with coarse breath sounds bilaterally) . Negative for: Wheezes, Rales, Tender to Palpation Cardiovascular: Positive for: Irregular Rhythm (Irregularly irregular with AICD in place on left upper chest. ), Peripheal Pulses Present Abdomen: Positive for: Normal Bowel Sounds. Negative for: Tenderness, Peritoneal Signs Upper Extremity: Positive for: Swelling (of bilateral upper extremities ) Lower Extremity: Positive for: Edema (Mild pedal edema bilaterally), NORMAL PULSES, Other (SCDs on lower extremities bilaterally) Skin: Positive for: Other (Diffusely jaundiced. ) Psychiatric: Positive for: Other (Intubated and sedated) - Medications Active Medications: Active Medications Generic Name Dose Route Start Last Admin Trade Name Freq PRN Reason Stop Dose Admin Acetaminophen 650 mg 04/01/18 12:28 04/02/18 00:28 Tylenol 325mg Tab PO 650 mg Q6 PRN Administration Fever >100.4 F Albumin Human 12.5 gm 04/01/18 15:07 04/02/18 09:19 Albumin Human 25% (12.5 Gm/50 Ml) IV 12.5 gm Q12 JACK Administration Albuterol Sulfate 2.5 mg 04/01/18 14:00 04/02/18 08:00 Albuterol 0.083% Inhal Elisa (2.5 Mg/3 Ml) Ud IH 2.5 mg RQ6 JACK Administration Atovaquone 750 mg 04/01/18 18:00 04/02/18 09:19 Mepron PO 750 mg BID JACK Administration Protocol Famotidine 20 mg 04/01/18 22:00 04/01/18 21:21 Pepcid IVP 20 mg Q24H JACK Administration Norepinephrine Bitartrate 4 mg 254 mls @ 15.24 mls/hr 04/01/18 13:46 00:05 / Sodium Chloride IV 0 mcg/min .[id number] PRN 0 mls/hr TITRATE PER MD ORDER Titration Protocol 4 MCG/MIN Vasopressin 40 units/ Sodium 40 mls @ 1.2 mls/hr 04/01/18 14:00 04/02/18 04: 42 Chloride IV 0.03 units/min .Q24H PRN 1.8 mls/hr TITRATE PER PROTOCOL Titration Protocol 0.02 UNITS/MIN Sodium Chloride 1,000 mls @ 100 mls/hr 04/01/18 15:15 04/02/18 00:46 Sodium Chloride 0.9% IV 100 mls/hr .Q10H JACK Administration Telavancin 700 mg/ Dextrose 100 mls @ 100 mls/hr 04/01/18 17:45 04/01/18 18: 43 IVPB 100 mls/hr Q24H JACK Administration Protocol Imipenem/Cilastatin Sodium 500 100 mls @ 100 mls/hr 04/01/18 18:00 04/02/18 09:19 mg/ Sodium Chloride IVPB 100 mls/hr Q8H JACK Administration Protocol Phenylephrine HCl 30 mg/ 253 mls @ 10.12 mls/hr 04/01/18 21:00 04/02/18 07:45 Sodium Chloride IV 30 mcg/min .Q24H PRN 15.18 mls/hr TITRATE PER MD ORDER Titration Protocol 20 MCG/MIN Methylprednisolone 40 mg 04/01/18 16:00 04/02/18 04:08 Solu-Medrol IVP 40 mg Q12H JACK Administration Midazolam HCl 1 mg 04/01/18 16:51 04/01/18 21:34 Versed Inj IVP 1 mg Q3 PRN Administration Agitation - Patient Studies Lab Studies: Microbiology Studies 04/01/18 17:43 Gram Stain - Final Trachasp Lab Studies 04/02/18 04/02/18 04/02/18 Range/Units 05:57 05:57 05:37 WBC 23.7 H (4.8-10.8) K/uL RBC 2.34 L (4.40-5.90) Mil/uL Hgb 8.4 L (12.0-18.0) g/dL Hct 25.2 L (35.0-51.0) % MCV 107.4 H (80.0-94.0) fL MCH 35.7 H (27.0-31.0) pg MCHC 33.2 (33.0-37.0) g/dL RDW 19.6 H (11.5-14.5) % Plt Count 53 L (130-400) K/uL MPV 11.0 (7.2-11.7) fL Neut % (Auto) 71.2 (50.0-75.0) % Lymph % (Auto) 27.4 (20.0-40.0) % [place] % (Auto) 1.2 (0.0-10.0) % Eos % (Auto) 0.0 (0.0-4.0) % Baso % (Auto) 0.2 (0.0-2.0) % Neut # (Auto) 16.9 H (1.8-7.0) K/uL Lymph # (Auto) 6.5 H (1.0-4.3) K/uL [place] # (Auto) 0.3 (0.0-0.8) K/uL Eos # (Auto) 0.0 (0.0-0.7) K/uL Baso # (Auto) 0.0 (0.0-0.2) K/uL Differential Comment PT (9.7-12.2) SECONDS INR APTT (21-34) SECONDS Puncture Site Rb pCO2 32 L (35-45) mm/Hg pO2 70 L (80-100) mm/Hg HCO3 21.4 (21-28) mmol/L ABG pH 7.40 (7.35-7.45) ABG Total CO2 20.8 L (22-28) mmol/L ABG O2 Saturation 97.3 (95-98) % ABG Base Excess -4.4 L (-2.0-3.0) mmol/L ABG Hemoglobin 8.6 L (11.7-17.4) g/dL ABG Carboxyhemoglobin 3.0 H (0.5-1.5) % POC ABG HHb (Measured) 2.6 (0.0-5.0) % ABG Methemoglobin 1.3 (0.0-3.0) % Ricky Test Na ABG Potassium (3.6-5.2) mmol/L A-a O2 Difference 318.0 mm/Hg Respiratory Index 4.5 Hgb O2 Saturation 93.1 L (95.0-98.0) % Sodium 145 (132-148) mmol/l Chloride 113 H (98-107) mmol/L Glucose (75-110) mg/dl Lactate (0.7-2.1) mmol/L Vent Mode Prvc Mechanical Rate 18 FiO2 60.0 % Tidal Volume 500 PEEP 5 Potassium 3.7 (3.6-5.2) mmol/L Carbon Dioxide 21 L (22-30) mmol/L Anion Gap 15 (10-20) BUN 76 H (9-20) mg/dL Creatinine 1.7 H (0.8-1.5) mg/dL Est GFR ( Amer) 48 Est GFR (Non-Af Amer) 39 POC Glucose (mg/dL) (65-110) mg/dL Random Glucose 152 H (75-110) mg/dL Lactic Acid (0.7-2.1) mmol/L Calcium 7.9 L (8.6-10.4) mg/dl Phosphorus 5.9 H (2.5-4.5) mg/dL Magnesium 2.4 H (1.6-2.3) mg/dL Total Bilirubin 4.3 H (0.2-1.3) mg/dL AST 22 (17-59) U/L ALT 49 (21-72) U/L Alkaline Phosphatase 44 (38-126) U/L Total Creatine Kinase (55-170) U/L CK-MB (Mass) (0.0-3.38) ng/mL Troponin I (0.00-0.120) ng/mL NT-Pro-B Natriuret Pep (0-900) pg/mL Total Protein 5.4 L (6.3-8.3) g/dL Albumin 2.6 L (3.5-5.0) g/dL Globulin 2.8 (2.2-3.9) gm/dL Albumin/Globulin Ratio 0.9 L (1.0-2.1) Arterial Blood Potassium (3.6-5.2) mmol/L Urine Color (YELLOW) Urine Clarity (Clear) Urine pH (5.0-8.0) Ur Specific [place] (1.003-1.030) Urine Protein (NEGATIVE) mg/dL Urine Glucose (UA) (Normal) mg/dL Urine Ketones (NEGATIVE) mg/dL Urine Blood (NEGATIVE) Urine Nitrate (NEGATIVE) Urine Bilirubin (NEGATIVE) Urine Urobilinogen (0.2-1.0) mg/dL Ur Leukocyte Esterase (Negative) Faye/uL Urine WBC (Auto) (0-5) /hpf Urine RBC (Auto) (0-3) /hpf Ur Squamous Epith Cells (0-5) /hpf Amorphous Sediment (<OCC) /ul Urine Bacteria (<OCC) Hyaline Casts (0-2) /lpf Influenza Typ A,B (EIA) (NEGATIVE) Blood Type Antibody Screen Antibody Identification Elution DELFINA, Poly Interpret (NEGATIVE) 04/02/18 04/01/18 04/01/18 Range/Units 05:32 23:26 22:28 WBC 24.8 H (4.8-10.8) K/uL RBC 2.17 L (4.40-5.90) Mil/uL Hgb 7.8 L (12.0-18.0) g/dL Hct 23.7 L (35.0-51.0) % MCV 109.2 H (80.0-94.0) fL MCH 36.1 H (27.0-31.0) pg MCHC 33.0 (33.0-37.0) g/dL RDW 16.1 H (11.5-14.5) % Plt Count 66 L (130-400) K/uL MPV 9.5 (7.2-11.7) fL Neut % (Auto) (50.0-75.0) % Lymph % (Auto) (20.0-40.0) % [place] % (Auto) (0.0-10.0) % Eos % (Auto) (0.0-4.0) % Baso % (Auto) (0.0-2.0) % Neut # (Auto) (1.8-7.0) K/uL Lymph # (Auto) (1.0-4.3) K/uL [place] # (Auto) (0.0-0.8) K/uL Eos # (Auto) (0.0-0.7) K/uL Baso # (Auto) (0.0-0.2) K/uL Differential Comment PT (9.7-12.2) SECONDS INR APTT (21-34) SECONDS Puncture Site pCO2 (35-45) mm/Hg pO2 (80-100) mm/Hg HCO3 (21-28) mmol/L ABG pH (7.35-7.45) ABG Total CO2 (22-28) mmol/L ABG O2 Saturation (95-98) % ABG Base Excess (-2.0-3.0) mmol/L ABG Hemoglobin (11.7-17.4) g/dL ABG Carboxyhemoglobin (0.5-1.5) % POC ABG HHb (Measured) (0.0-5.0) % ABG Methemoglobin (0.0-3.0) % Ricky Test ABG Potassium (3.6-5.2) mmol/L A-a O2 Difference mm/Hg Respiratory Index Hgb O2 Saturation (95.0-98.0) % Sodium (132-148) mmol/l Chloride (98-107) mmol/L Glucose (75-110) mg/dl Lactate (0.7-2.1) mmol/L Vent Mode Mechanical Rate FiO2 % Tidal Volume PEEP Potassium (3.6-5.2) mmol/L Carbon Dioxide (22-30) mmol/L Anion Gap (10-20) BUN (9-20) mg/dL Creatinine (0.8-1.5) mg/dL Est GFR ( Amer) Est GFR (Non-Af Amer) POC Glucose (mg/dL) 130 H 157 H (65-110) mg/dL Random Glucose (75-110) mg/dL Lactic Acid (0.7-2.1) mmol/L Calcium (8.6-10.4) mg/dl Phosphorus (2.5-4.5) mg/dL Magnesium (1.6-2.3) mg/dL Total Bilirubin (0.2-1.3) mg/dL AST (17-59) U/L ALT (21-72) U/L Alkaline Phosphatase (38-126) U/L Total Creatine Kinase (55-170) U/L CK-MB (Mass) (0.0-3.38) ng/mL Troponin I (0.00-0.120) ng/mL NT-Pro-B Natriuret Pep (0-900) pg/mL Total Protein (6.3-8.3) g/dL Albumin (3.5-5.0) g/dL Globulin (2.2-3.9) gm/dL Albumin/Globulin Ratio (1.0-2.1) Arterial Blood Potassium (3.6-5.2) mmol/L Urine Color (YELLOW) Urine Clarity (Clear) Urine pH (5.0-8.0) Ur Specific [place] (1.003-1.030) Urine Protein (NEGATIVE) mg/dL Urine Glucose (UA) (Normal) mg/dL Urine Ketones (NEGATIVE) mg/dL Urine Blood (NEGATIVE) Urine Nitrate (NEGATIVE) Urine Bilirubin (NEGATIVE) Urine Urobilinogen (0.2-1.0) mg/dL Ur Leukocyte Esterase (Negative) Faye/uL Urine WBC (Auto) (0-5) /hpf Urine RBC (Auto) (0-3) /hpf Ur Squamous Epith Cells (0-5) /hpf Amorphous Sediment (<OCC) /ul Urine Bacteria (<OCC) Hyaline Casts (0-2) /lpf Influenza Typ A,B (EIA) (NEGATIVE) Blood Type Antibody Screen Antibody Identification Elution DELFINA, Poly Interpret (NEGATIVE) 04/01/18 04/01/18 04/01/18 Range/Units 22:28 17:32 15:56 WBC (4.8-10.8) K/uL RBC (4.40-5.90) Mil/uL Hgb (12.0-18.0) g/dL Hct (35.0-51.0) % MCV (80.0-94.0) fL MCH (27.0-31.0) pg MCHC (33.0-37.0) g/dL RDW (11.5-14.5) % Plt Count (130-400) K/uL MPV (7.2-11.7) fL Neut % (Auto) (50.0-75.0) % Lymph % (Auto) (20.0-40.0) % [place] % (Auto) (0.0-10.0) % Eos % (Auto) (0.0-4.0) % Baso % (Auto) (0.0-2.0) % Neut # (Auto) (1.8-7.0) K/uL Lymph # (Auto) (1.0-4.3) K/uL [place] # (Auto) (0.0-0.8) K/uL Eos # (Auto) (0.0-0.7) K/uL Baso # (Auto) (0.0-0.2) K/uL Differential Comment PT (9.7-12.2) SECONDS INR APTT (21-34) SECONDS Puncture Site pCO2 (35-45) mm/Hg pO2 (80-100) mm/Hg HCO3 (21-28) mmol/L ABG pH (7.35-7.45) ABG Total CO2 (22-28) mmol/L ABG O2 Saturation (95-98) % ABG Base Excess (-2.0-3.0) mmol/L ABG Hemoglobin (11.7-17.4) g/dL ABG Carboxyhemoglobin (0.5-1.5) % POC ABG HHb (Measured) (0.0-5.0) % ABG Methemoglobin (0.0-3.0) % Ricky Test ABG Potassium (3.6-5.2) mmol/L A-a O2 Difference mm/Hg Respiratory Index Hgb O2 Saturation (95.0-98.0) % Sodium (132-148) mmol/l Chloride (98-107) mmol/L Glucose (75-110) mg/dl Lactate (0.7-2.1) mmol/L Vent Mode Mechanical Rate FiO2 % Tidal Volume PEEP Potassium (3.6-5.2) mmol/L Carbon Dioxide (22-30) mmol/L Anion Gap (10-20) BUN (9-20) mg/dL Creatinine (0.8-1.5) mg/dL Est GFR ( Amer) Est GFR (Non-Af Amer) POC Glucose (mg/dL) 123 H (65-110) mg/dL Random Glucose (75-110) mg/dL Lactic Acid 1.0 (0.7-2.1) mmol/L Calcium (8.6-10.4) mg/dl Phosphorus (2.5-4.5) mg/dL Magnesium (1.6-2.3) mg/dL Total Bilirubin (0.2-1.3) mg/dL AST (17-59) U/L ALT (21-72) U/L Alkaline Phosphatase (38-126) U/L Total Creatine Kinase 56 (55-170) U/L CK-MB (Mass) 1.67 (0.0-3.38) ng/mL Troponin I 0.2620 H* (0.00-0.120) ng/mL NT-Pro-B Natriuret Pep (0-900) pg/mL Total Protein (6.3-8.3) g/dL Albumin (3.5-5.0) g/dL Globulin (2.2-3.9) gm/dL Albumin/Globulin Ratio (1.0-2.1) Arterial Blood Potassium (3.6-5.2) mmol/L Urine Color (YELLOW) Urine Clarity (Clear) Urine pH (5.0-8.0) Ur Specific [place] (1.003-1.030) Urine Protein (NEGATIVE) mg/dL Urine Glucose (UA) (Normal) mg/dL Urine Ketones (NEGATIVE) mg/dL Urine Blood (NEGATIVE) Urine Nitrate (NEGATIVE) Urine Bilirubin (NEGATIVE) Urine Urobilinogen (0.2-1.0) mg/dL Ur Leukocyte Esterase (Negative) Faye/uL Urine WBC (Auto) (0-5) /hpf Urine RBC (Auto) (0-3) /hpf Ur Squamous Epith Cells (0-5) /hpf Amorphous Sediment (<OCC) /ul Urine Bacteria (<OCC) Hyaline Casts (0-2) /lpf Influenza Typ A,B (EIA) (NEGATIVE) Blood Type Antibody Screen Antibody Identification Elution DELFINA, Poly Interpret (NEGATIVE) 04/01/18 04/01/18 04/01/18 Range/Units 15:56 15:56 13:23 WBC 21.4 H (4.8-10.8) K/uL RBC 2.04 L (4.40-5.90) Mil/uL Hgb 7.5 L (12.0-18.0) g/dL Hct 22.7 L (35.0-51.0) % MCV 111.1 H D (80.0-94.0) fL MCH 36.7 H (27.0-31.0) pg MCHC 33.1 (33.0-37.0) g/dL RDW 16.0 H (11.5-14.5) % Plt Count 57 L (130-400) K/uL MPV 10.1 (7.2-11.7) fL Neut % (Auto) 64.7 (50.0-75.0) % Lymph % (Auto) 32.8 (20.0-40.0) % C[place]shaw % (Auto) 2.2 (0.0-10.0) % Eos % (Auto) 0.1 (0.0-4.0) % Baso % (Auto) 0.2 (0.0-2.0) % Neut # (Auto) 9.6 H (1.8-7.0) K/uL Lymph # (Auto) 4.8 H (1.0-4.3) K/uL [place]shaw # (Auto) 0.3 (0.0-0.8) K/uL Eos # (Auto) 0.0 (0.0-0.7) K/uL Baso # (Auto) 0.0 (0.0-0.2) K/uL Differential Comment PT (9.7-12.2) SECONDS INR APTT (21-34) SECONDS Puncture Site pCO2 (35-45) mm/Hg pO2 (80-100) mm/Hg HCO3 (21-28) mmol/L ABG pH (7.35-7.45) ABG Total CO2 (22-28) mmol/L ABG O2 Saturation (95-98) % ABG Base Excess (-2.0-3.0) mmol/L ABG Hemoglobin (11.7-17.4) g/dL ABG Carboxyhemoglobin (0.5-1.5) % POC ABG HHb (Measured) (0.0-5.0) % ABG Methemoglobin (0.0-3.0) % Ricky Test ABG Potassium (3.6-5.2) mmol/L A-a O2 Difference mm/Hg Respiratory Index Hgb O2 Saturation (95.0-98.0) % Sodium 143 (132-148) mmol/l Chloride 110 H (98-107) mmol/L Glucose (75-110) mg/dl Lactate (0.7-2.1) mmol/L Vent Mode Mechanical Rate FiO2 % Tidal Volume PEEP Potassium 3.3 L (3.6-5.2) mmol/L Carbon Dioxide 22 (22-30) mmol/L Anion Gap 14 (10-20) BUN 73 H (9-20) mg/dL Creatinine 1.6 H (0.8-1.5) mg/dL Est GFR ( Amer) 51 Est GFR (Non-Af Amer) 42 POC Glucose (mg/dL) (65-110) mg/dL Random Glucose 115 H (75-110) mg/dL Lactic Acid (0.7-2.1) mmol/L Calcium 7.3 L (8.6-10.4) mg/dl Phosphorus 5.5 H (2.5-4.5) mg/dL Magnesium 2.2 (1.6-2.3) mg/dL Total Bilirubin 3.3 H (0.2-1.3) mg/dL AST 25 (17-59) U/L ALT 56 (21-72) U/L Alkaline Phosphatase 45 (38-126) U/L Total Creatine Kinase 56 (55-170) U/L CK-MB (Mass) 1.34 (0.0-3.38) ng/mL Troponin I 0.2240 H* (0.00-0.120) ng/mL NT-Pro-B Natriuret Pep (0-900) pg/mL Total Protein 5.0 L (6.3-8.3) g/dL Albumin 2.2 L D (3.5-5.0) g/dL Globulin 2.8 (2.2-3.9) gm/dL Albumin/Globulin Ratio 0.8 L (1.0-2.1) Arterial Blood Potassium (3.6-5.2) mmol/L Urine Color (YELLOW) Urine Clarity (Clear) Urine pH (5.0-8.0) Ur Specific Cay[place] (1.003-1.030) Urine Protein (NEGATIVE) mg/dL Urine Glucose (UA) (Normal) mg/dL Urine Ketones (NEGATIVE) mg/dL Urine Blood (NEGATIVE) Urine Nitrate (NEGATIVE) Urine Bilirubin (NEGATIVE) Urine Urobilinogen (0.2-1.0) mg/dL Ur Leukocyte Esterase (Negative) Faye/uL Urine WBC (Auto) (0-5) /hpf Urine RBC (Auto) (0-3) /hpf Ur Squamous Epith Cells (0-5) /hpf Amorphous Sediment (<OCC) /ul Urine Bacteria (<OCC) Hyaline Casts (0-2) /lpf Influenza Typ A,B (EIA) Negative for flu a/b (NEGATIVE) Blood Type Antibody Screen Antibody Identification Elution DELFINA, Poly Interpret (NEGATIVE) 04/01/18 04/01/18 04/01/18 Range/Units 13:20 12:55 11:17 WBC (4.8-10.8) K/uL RBC (4.40-5.90) Mil/uL Hgb (12.0-18.0) g/dL Hct (35.0-51.0) % MCV (80.0-94.0) fL MCH (27.0-31.0) pg MCHC (33.0-37.0) g/dL RDW (11.5-14.5) % Plt Count (130-400) K/uL MPV (7.2-11.7) fL Neut % (Auto) (50.0-75.0) % Lymph % (Auto) (20.0-40.0) % Crenshaw % (Auto) (0.0-10.0) % Eos % (Auto) (0.0-4.0) % Baso % (Auto) (0.0-2.0) % Neut # (Auto) (1.8-7.0) K/uL Lymph # (Auto) (1.0-4.3) K/uL C[place]shaw # (Auto) (0.0-0.8) K/uL Eos # (Auto) (0.0-0.7) K/uL Baso # (Auto) (0.0-0.2) K/uL Differential Comment PT (9.7-12.2) SECONDS INR APTT (21-34) SECONDS Puncture Site Rb pCO2 28 L (35-45) mm/Hg pO2 203 H (80-100) mm/Hg HCO3 24.3 (21-28) mmol/L ABG pH 7.49 H (7.35-7.45) ABG Total CO2 22.2 (22-28) mmol/L ABG O2 Saturation 99.3 H (95-98) % ABG Base Excess -0.9 (-2.0-3.0) mmol/L ABG Hemoglobin (11.7-17.4) g/dL ABG Carboxyhemoglobin (0.5-1.5) % POC ABG HHb (Measured) (0.0-5.0) % ABG Methemoglobin (0.0-3.0) % Ricky Test Na ABG Potassium 2.9 L (3.6-5.2) mmol/L A-a O2 Difference 475.0 mm/Hg Respiratory Index 2.3 Hgb O2 Saturation (95.0-98.0) % Sodium 141.0 (132-148) mmol/l Chloride 113.0 H (98-107) mmol/L Glucose 115 H (75-110) mg/dl Lactate 1.0 (0.7-2.1) mmol/L Vent Mode Mechanical Rate 18 FiO2 100.0 % Tidal Volume 500 PEEP 5 Potassium (3.6-5.2) mmol/L Carbon Dioxide (22-30) mmol/L Anion Gap (10-20) BUN (9-20) mg/dL Creatinine (0.8-1.5) mg/dL Est GFR ( Amer) Est GFR (Non-Af Amer) POC Glucose (mg/dL) 112 H (65-110) mg/dL Random Glucose (75-110) mg/dL Lactic Acid (0.7-2.1) mmol/L Calcium (8.6-10.4) mg/dl Phosphorus (2.5-4.5) mg/dL Magnesium (1.6-2.3) mg/dL Total Bilirubin (0.2-1.3) mg/dL AST (17-59) U/L ALT (21-72) U/L Alkaline Phosphatase (38-126) U/L Total Creatine Kinase (55-170) U/L CK-MB (Mass) (0.0-3.38) ng/mL Troponin I (0.00-0.120) ng/mL NT-Pro-B Natriuret Pep (0-900) pg/mL Total Protein (6.3-8.3) g/dL Albumin (3.5-5.0) g/dL Globulin (2.2-3.9) gm/dL Albumin/Globulin Ratio (1.0-2.1) Arterial Blood Potassium 2.9 L (3.6-5.2) mmol/L Urine Color (YELLOW) Urine Clarity (Clear) Urine pH (5.0-8.0) Ur Specific Cayce (1.003-1.030) Urine Protein (NEGATIVE) mg/dL Urine Glucose (UA) (Normal) mg/dL Urine Ketones (NEGATIVE) mg/dL Urine Blood (NEGATIVE) Urine Nitrate (NEGATIVE) Urine Bilirubin (NEGATIVE) Urine Urobilinogen (0.2-1.0) mg/dL Ur Leukocyte Esterase (Negative) Faye/uL Urine WBC (Auto) (0-5) /hpf Urine RBC (Auto) (0-3) /hpf Ur Squamous Epith Cells (0-5) /hpf Amorphous Sediment (<OCC) /ul Urine Bacteria (<OCC) Hyaline Casts (0-2) /lpf Influenza Typ A,B (EIA) (NEGATIVE) Blood Type A POSITIVE Antibody Screen Positive Antibody Identification Non Specific Antibody Elution Positive DELFINA, Poly Interpret Positive H (NEGATIVE) 04/01/18 04/01/18 04/01/18 Range/Units 11:17 10:46 10:36 WBC (4.8-10.8) K/uL RBC (4.40-5.90) Mil/uL Hgb (12.0-18.0) g/dL Hct (35.0-51.0) % MCV (80.0-94.0) fL MCH (27.0-31.0) pg MCHC (33.0-37.0) g/dL RDW (11.5-14.5) % Plt Count (130-400) K/uL MPV (7.2-11.7) fL Neut % (Auto) (50.0-75.0) % Lymph % (Auto) (20.0-40.0) % Crenshaw % (Auto) (0.0-10.0) % Eos % (Auto) (0.0-4.0) % Baso % (Auto) (0.0-2.0) % Neut # (Auto) (1.8-7.0) K/uL Lymph # (Auto) (1.0-4.3) K/uL Crenshaw # (Auto) (0.0-0.8) K/uL Eos # (Auto) (0.0-0.7) K/uL Baso # (Auto) (0.0-0.2) K/uL Differential Comment PT (9.7-12.2) SECONDS INR APTT (21-34) SECONDS Puncture Site Lra pCO2 34 L (35-45) mm/Hg pO2 94 (80-100) mm/Hg HCO3 24.5 (21-28) mmol/L ABG pH 7.44 (7.35-7.45) ABG Total CO2 24.1 (22-28) mmol/L ABG O2 Saturation 99.1 H (95-98) % ABG Base Excess -0.5 (-2.0-3.0) mmol/L ABG Hemoglobin (11.7-17.4) g/dL ABG Carboxyhemoglobin (0.5-1.5) % POC ABG HHb (Measured) (0.0-5.0) % ABG Methemoglobin (0.0-3.0) % Ricky Test Pos ABG Potassium 3.5 L (3.6-5.2) mmol/L A-a O2 Difference 577.0 mm/Hg Respiratory Index 6.1 Hgb O2 Saturation (95.0-98.0) % Sodium 142 140.0 (132-148) mmol/l Chloride 105 111.0 H (98-107) mmol/L Glucose 109 (75-110) mg/dl Lactate 1.3 (0.7-2.1) mmol/L Vent Mode Prvc Mechanical Rate 16 FiO2 100.0 % Tidal Volume 500 PEEP 5 Potassium 3.4 L (3.6-5.2) mmol/L Carbon Dioxide 24 (22-30) mmol/L Anion Gap 17 (10-20) BUN 79 H (9-20) mg/dL Creatinine 1.9 H (0.8-1.5) mg/dL Est GFR ( Amer) 42 Est GFR (Non-Af Amer) 35 POC Glucose (mg/dL) (65-110) mg/dL Random Glucose 118 H (75-110) mg/dL Lactic Acid (0.7-2.1) mmol/L Calcium 8.3 L (8.6-10.4) mg/dl Phosphorus 5.7 H (2.5-4.5) mg/dL Magnesium 2.4 H (1.6-2.3) mg/dL Total Bilirubin 3.6 H (0.2-1.3) mg/dL AST 31 (17-59) U/L ALT 62 (21-72) U/L Alkaline Phosphatase 60 (38-126) U/L Total Creatine Kinase (55-170) U/L CK-MB (Mass) (0.0-3.38) ng/mL Troponin I (0.00-0.120) ng/mL NT-Pro-B Natriuret Pep (0-900) pg/mL Total Protein 6.2 L (6.3-8.3) g/dL Albumin 2.9 L D (3.5-5.0) g/dL Globulin 3.3 (2.2-3.9) gm/dL Albumin/Globulin Ratio 0.9 L (1.0-2.1) Arterial Blood Potassium 3.5 L (3.6-5.2) mmol/L Urine Color Yellow (YELLOW) Urine Clarity Hazy (Clear) Urine pH 5.0 (5.0-8.0) Ur Specific Cayce 1.009 (1.003-1.030) Urine Protein Negative (NEGATIVE) mg/dL Urine Glucose (UA) Normal (Normal) mg/dL Urine Ketones Negative (NEGATIVE) mg/dL Urine Blood 1+ H (NEGATIVE) Urine Nitrate Negative (NEGATIVE) Urine Bilirubin Negative (NEGATIVE) Urine Urobilinogen Normal (0.2-1.0) mg/dL Ur Leukocyte Esterase 1+ H (Negative) Faye/uL Urine WBC (Auto) 3 (0-5) /hpf Urine RBC (Auto) 2 (0-3) /hpf Ur Squamous Epith Cells < 1 (0-5) /hpf Amorphous Sediment Rare H (<OCC) /ul Urine Bacteria Occ H (<OCC) Hyaline Casts 11-20 H (0-2) /lpf Influenza Typ A,B (EIA) (NEGATIVE) Blood Type Antibody Screen Antibody Identification Elution DELFINA, Poly Interpret (NEGATIVE) 04/01/18 04/01/18 04/01/18 Range/Units 10:09 10:09 10:09 WBC 22.1 H (4.8-10.8) K/uL RBC 2.40 L (4.40-5.90) Mil/uL Hgb 8.7 L D (12.0-18.0) g/dL Hct 25.9 L (35.0-51.0) % MCV 108.0 H D (80.0-94.0) fL MCH 36.4 H (27.0-31.0) pg MCHC 33.7 (33.0-37.0) g/dL RDW 15.9 H (11.5-14.5) % Plt Count 65 L D (130-400) K/uL MPV 10.2 (7.2-11.7) fL Neut % (Auto) 63.7 (50.0-75.0) % Lymph % (Auto) 34.2 (20.0-40.0) % Crenshaw % (Auto) 2.1 (0.0-10.0) % Eos % (Auto) 0.0 (0.0-4.0) % Baso % (Auto) 0.0 (0.0-2.0) % Neut # (Auto) 14.1 H (1.8-7.0) K/uL Lymph # (Auto) 7.6 H (1.0-4.3) K/uL Crenshaw # (Auto) 0.5 (0.0-0.8) K/uL Eos # (Auto) 0.0 (0.0-0.7) K/uL Baso # (Auto) 0.0 (0.0-0.2) K/uL Differential Comment PT 18.5 H (9.7-12.2) SECONDS INR 1.7 APTT 28 (21-34) SECONDS Puncture Site pCO2 (35-45) mm/Hg pO2 (80-100) mm/Hg HCO3 (21-28) mmol/L ABG pH (7.35-7.45) ABG Total CO2 (22-28) mmol/L ABG O2 Saturation (95-98) % ABG Base Excess (-2.0-3.0) mmol/L ABG Hemoglobin (11.7-17.4) g/dL ABG Carboxyhemoglobin (0.5-1.5) % POC ABG HHb (Measured) (0.0-5.0) % ABG Methemoglobin (0.0-3.0) % Ricky Test ABG Potassium (3.6-5.2) mmol/L A-a O2 Difference mm/Hg Respiratory Index Hgb O2 Saturation (95.0-98.0) % Sodium (132-148) mmol/l Chloride (98-107) mmol/L Glucose (75-110) mg/dl Lactate (0.7-2.1) mmol/L Vent Mode Mechanical Rate FiO2 % Tidal Volume PEEP Potassium (3.6-5.2) mmol/L Carbon Dioxide (22-30) mmol/L Anion Gap (10-20) BUN (9-20) mg/dL Creatinine (0.8-1.5) mg/dL Est GFR ( Amer) Est GFR (Non-Af Amer) POC Glucose (mg/dL) (65-110) mg/dL Random Glucose (75-110) mg/dL Lactic Acid (0.7-2.1) mmol/L Calcium (8.6-10.4) mg/dl Phosphorus (2.5-4.5) mg/dL Magnesium (1.6-2.3) mg/dL Total Bilirubin (0.2-1.3) mg/dL AST (17-59) U/L ALT (21-72) U/L Alkaline Phosphatase (38-126) U/L Total Creatine Kinase 45 L (55-170) U/L CK-MB (Mass) 0.28 (0.0-3.38) ng/mL Troponin I 0.2140 H* (0.00-0.120) ng/mL NT-Pro-B Natriuret Pep 9300 H (0-900) pg/mL Total Protein (6.3-8.3) g/dL Albumin (3.5-5.0) g/dL Globulin (2.2-3.9) gm/dL Albumin/Globulin Ratio (1.0-2.1) Arterial Blood Potassium (3.6-5.2) mmol/L Urine Color (YELLOW) Urine Clarity (Clear) Urine pH (5.0-8.0) Ur Specific Cayce (1.003-1.030) Urine Protein (NEGATIVE) mg/dL Urine Glucose (UA) (Normal) mg/dL Urine Ketones (NEGATIVE) mg/dL Urine Blood (NEGATIVE) Urine Nitrate (NEGATIVE) Urine Bilirubin (NEGATIVE) Urine Urobilinogen (0.2-1.0) mg/dL Ur Leukocyte Esterase (Negative) Faye/uL Urine WBC (Auto) (0-5) /hpf Urine RBC (Auto) (0-3) /hpf Ur Squamous Epith Cells (0-5) /hpf Amorphous Sediment (<OCC) /ul Urine Bacteria (<OCC) Hyaline Casts (0-2) /lpf Influenza Typ A,B (EIA) (NEGATIVE) Blood Type Antibody Screen Antibody Identification Elution DELFINA, Poly Interpret (NEGATIVE) Laboratory Results - last 24 hr 04/01/18 04/01/18 04/01/18 10:09 10:09 10:09 WBC 22.1 H RBC 2.40 L Hgb 8.7 L D Hct 25.9 L MCV 108.0 H D MCH 36.4 H MCHC 33.7 RDW 15.9 H Plt Count 65 L D MPV 10.2 Neut % (Auto) 63.7 Lymph % (Auto) 34.2 Crenshaw % (Auto) 2.1 Eos % (Auto) 0.0 Baso % (Auto) 0.0 Neut # (Auto) 14.1 H Lymph # (Auto) 7.6 H Crenshaw # (Auto) 0.5 Eos # (Auto) 0.0 Baso # (Auto) 0.0 Differential Comment PT 18.5 H INR 1.7 APTT 28 Puncture Site pCO2 pO2 HCO3 ABG pH ABG Total CO2 ABG O2 Saturation ABG Base Excess ABG Hemoglobin ABG Carboxyhemoglobin POC ABG HHb (Measured) ABG Methemoglobin Ricky Test ABG Potassium A-a O2 Difference Respiratory Index Hgb O2 Saturation Sodium Chloride Glucose Lactate Vent Mode Mechanical Rate FiO2 Tidal Volume PEEP Potassium Carbon Dioxide Anion Gap BUN Creatinine Est GFR ( Amer) Est GFR (Non-Af Amer) POC Glucose (mg/dL) Random Glucose Lactic Acid Calcium Phosphorus Magnesium Total Bilirubin AST ALT Alkaline Phosphatase Total Creatine Kinase 45 L CK-MB (Mass) 0.28 Troponin I 0.2140 H* NT-Pro-B Natriuret Pep 9300 H Total Protein Albumin Globulin Albumin/Globulin Ratio Arterial Blood Potassium Urine Color Urine Clarity Urine pH Ur Specific [place] Urine Protein Urine Glucose (UA) Urine Ketones Urine Blood Urine Nitrate Urine Bilirubin Urine Urobilinogen Ur Leukocyte Esterase Urine WBC (Auto) Urine RBC (Auto) Ur Squamous Epith Cells Amorphous Sediment Urine Bacteria Hyaline Casts Influenza Typ A,B (EIA) Blood Type Antibody Screen Antibody Identification Elution DELFINA, Poly Interpret 04/01/18 04/01/18 04/01/18 10:36 10:46 11:17 WBC RBC Hgb Hct MCV MCH MCHC RDW Plt Count MPV Neut % (Auto) Lymph % (Auto) [place] % (Auto) Eos % (Auto) Baso % (Auto) Neut # (Auto) Lymph # (Auto) [place] # (Auto) Eos # (Auto) Baso # (Auto) Differential Comment PT INR APTT Puncture Site Lra pCO2 34 L pO2 94 HCO3 24.5 ABG pH 7.44 ABG Total CO2 24.1 ABG O2 Saturation 99.1 H ABG Base Excess -0.5 ABG Hemoglobin ABG Carboxyhemoglobin POC ABG HHb (Measured) ABG Methemoglobin Ricky Test Pos ABG Potassium 3.5 L A-a O2 Difference 577.0 Respiratory Index 6.1 Hgb O2 Saturation Sodium 140.0 142 Chloride 111.0 H 105 Glucose 109 Lactate 1.3 Vent Mode Prvc Mechanical Rate 16 FiO2 100.0 Tidal Volume 500 PEEP 5 Potassium 3.4 L Carbon Dioxide 24 Anion Gap 17 BUN 79 H Creatinine 1.9 H Est GFR ( Amer) 42 Est GFR (Non-Af Amer) 35 POC Glucose (mg/dL) Random Glucose 118 H Lactic Acid Calcium 8.3 L Phosphorus 5.7 H Magnesium 2.4 H Total Bilirubin 3.6 H AST 31 ALT 62 Alkaline Phosphatase 60 Total Creatine Kinase CK-MB (Mass) Troponin I NT-Pro-B Natriuret Pep Total Protein 6.2 L Albumin 2.9 L D Globulin 3.3 Albumin/Globulin Ratio 0.9 L Arterial Blood Potassium 3.5 L Urine Color Yellow Urine Clarity Hazy Urine pH 5.0 Ur Specific [place] 1.009 Urine Protein Negative Urine Glucose (UA) Normal Urine Ketones Negative Urine Blood 1+ H Urine Nitrate Negative Urine Bilirubin Negative Urine Urobilinogen Normal Ur Leukocyte Esterase 1+ H Urine WBC (Auto) 3 Urine RBC (Auto) 2 Ur Squamous Epith Cells < 1 Amorphous Sediment Rare H Urine Bacteria Occ H Hyaline Casts 11-20 H Influenza Typ A,B (EIA) Blood Type Antibody Screen Antibody Identification Elution DELFINA, Poly Interpret 04/01/18 04/01/18 04/01/18 11:17 12:55 13:20 WBC RBC Hgb Hct MCV MCH MCHC RDW Plt Count MPV Neut % (Auto) Lymph % (Auto) [place] % (Auto) Eos % (Auto) Baso % (Auto) Neut # (Auto) Lymph # (Auto) [place] # (Auto) Eos # (Auto) Baso # (Auto) Differential Comment PT INR APTT Puncture Site Rb pCO2 28 L pO2 203 H HCO3 24.3 ABG pH 7.49 H ABG Total CO2 22.2 ABG O2 Saturation 99.3 H ABG Base Excess -0.9 ABG Hemoglobin ABG Carboxyhemoglobin POC ABG HHb (Measured) ABG Methemoglobin Ricky Test Na ABG Potassium 2.9 L A-a O2 Difference 475.0 Respiratory Index 2.3 Hgb O2 Saturation Sodium 141.0 Chloride 113.0 H Glucose 115 H Lactate 1.0 Vent Mode Mechanical Rate 18 FiO2 100.0 Tidal Volume 500 PEEP 5 Potassium Carbon Dioxide Anion Gap BUN Creatinine Est GFR ( Amer) Est GFR (Non-Af Amer) POC Glucose (mg/dL) 112 H Random Glucose Lactic Acid Calcium Phosphorus Magnesium Total Bilirubin AST ALT Alkaline Phosphatase Total Creatine Kinase CK-MB (Mass) Troponin I NT-Pro-B Natriuret Pep Total Protein Albumin Globulin Albumin/Globulin Ratio Arterial Blood Potassium 2.9 L Urine Color Urine Clarity Urine pH Ur Specific [place] Urine Protein Urine Glucose (UA) Urine Ketones Urine Blood Urine Nitrate Urine Bilirubin Urine Urobilinogen Ur Leukocyte Esterase Urine WBC (Auto) Urine RBC (Auto) Ur Squamous Epith Cells Amorphous Sediment Urine Bacteria Hyaline Casts Influenza Typ A,B (EIA) Blood Type A POSITIVE Antibody Screen Positive Antibody Identification Non Specific Antibody Elution Positive DELFINA, Poly Interpret Positive H 04/01/18 04/01/18 04/01/18 13:23 15:56 15:56 WBC 21.4 H RBC 2.04 L Hgb 7.5 L Hct 22.7 L MCV 111.1 H D MCH 36.7 H MCHC 33.1 RDW 16.0 H Plt Count 57 L MPV 10.1 Neut % (Auto) 64.7 Lymph % (Auto) 32.8 [place] % (Auto) 2.2 Eos % (Auto) 0.1 Baso % (Auto) 0.2 Neut # (Auto) 9.6 H Lymph # (Auto) 4.8 H [place] # (Auto) 0.3 Eos # (Auto) 0.0 Baso # (Auto) 0.0 Differential Comment PT INR APTT Puncture Site pCO2 pO2 HCO3 ABG pH ABG Total CO2 ABG O2 Saturation ABG Base Excess ABG Hemoglobin ABG Carboxyhemoglobin POC ABG HHb (Measured) ABG Methemoglobin Ricky Test ABG Potassium A-a O2 Difference Respiratory Index Hgb O2 Saturation Sodium 143 Chloride 110 H Glucose Lactate Vent Mode Mechanical Rate FiO2 Tidal Volume PEEP Potassium 3.3 L Carbon Dioxide 22 Anion Gap 14 BUN 73 H Creatinine 1.6 H Est GFR ( Amer) 51 Est GFR (Non-Af Amer) 42 POC Glucose (mg/dL) Random Glucose 115 H Lactic Acid Calcium 7.3 L Phosphorus 5.5 H Magnesium 2.2 Total Bilirubin 3.3 H AST 25 ALT 56 Alkaline Phosphatase 45 Total Creatine Kinase 56 CK-MB (Mass) 1.34 Troponin I 0.2240 H* NT-Pro-B Natriuret Pep Total Protein 5.0 L Albumin 2.2 L D Globulin 2.8 Albumin/Globulin Ratio 0.8 L Arterial Blood Potassium Urine Color Urine Clarity Urine pH Ur Specific [place] Urine Protein Urine Glucose (UA) Urine Ketones Urine Blood Urine Nitrate Urine Bilirubin Urine Urobilinogen Ur Leukocyte Esterase Urine WBC (Auto) Urine RBC (Auto) Ur Squamous Epith Cells Amorphous Sediment Urine Bacteria Hyaline Casts Influenza Typ A,B (EIA) Negative for flu a/b Blood Type Antibody Screen Antibody Identification Elution DELFINA, Poly Interpret 04/01/18 04/01/18 04/01/18 15:56 17:32 22:28 WBC RBC Hgb Hct MCV MCH MCHC RDW Plt Count MPV Neut % (Auto) Lymph % (Auto) [place] % (Auto) Eos % (Auto) Baso % (Auto) Neut # (Auto) Lymph # (Auto) [place] # (Auto) Eos # (Auto) Baso # (Auto) Differential Comment PT INR APTT Puncture Site pCO2 pO2 HCO3 ABG pH ABG Total CO2 ABG O2 Saturation ABG Base Excess ABG Hemoglobin ABG Carboxyhemoglobin POC ABG HHb (Measured) ABG Methemoglobin Ricky Test ABG Potassium A-a O2 Difference Respiratory Index Hgb O2 Saturation Sodium Chloride Glucose Lactate Vent Mode Mechanical Rate FiO2 Tidal Volume PEEP Potassium Carbon Dioxide Anion Gap BUN Creatinine Est GFR ( Amer) Est GFR (Non-Af Amer) POC Glucose (mg/dL) 123 H Random Glucose Lactic Acid 1.0 Calcium Phosphorus Magnesium Total Bilirubin AST ALT Alkaline Phosphatase Total Creatine Kinase 56 CK-MB (Mass) 1.67 Troponin I 0.2620 H* NT-Pro-B Natriuret Pep Total Protein Albumin Globulin Albumin/Globulin Ratio Arterial Blood Potassium Urine Color Urine Clarity Urine pH Ur Specific [place] Urine Protein Urine Glucose (UA) Urine Ketones Urine Blood Urine Nitrate Urine Bilirubin Urine Urobilinogen Ur Leukocyte Esterase Urine WBC (Auto) Urine RBC (Auto) Ur Squamous Epith Cells Amorphous Sediment Urine Bacteria Hyaline Casts Influenza Typ A,B (EIA) Blood Type Antibody Screen Antibody Identification Elution DELFINA, Poly Interpret 04/01/18 04/01/18 04/02/18 22:28 23:26 05:32 WBC 24.8 H RBC 2.17 L Hgb 7.8 L Hct 23.7 L MCV 109.2 H MCH 36.1 H MCHC 33.0 RDW 16.1 H Plt Count 66 L MPV 9.5 Neut % (Auto) Lymph % (Auto) [place] % (Auto) Eos % (Auto) Baso % (Auto) Neut # (Auto) Lymph # (Auto) [place] # (Auto) Eos # (Auto) Baso # (Auto) Differential Comment PT INR APTT Puncture Site pCO2 pO2 HCO3 ABG pH ABG Total CO2 ABG O2 Saturation ABG Base Excess ABG Hemoglobin ABG Carboxyhemoglobin POC ABG HHb (Measured) ABG Methemoglobin Ricky Test ABG Potassium A-a O2 Difference Respiratory Index Hgb O2 Saturation Sodium Chloride Glucose Lactate Vent Mode Mechanical Rate FiO2 Tidal Volume PEEP Potassium Carbon Dioxide Anion Gap BUN Creatinine Est GFR ( Amer) Est GFR (Non-Af Amer) POC Glucose (mg/dL) 157 H 130 H Random Glucose Lactic Acid Calcium Phosphorus Magnesium Total Bilirubin AST ALT Alkaline Phosphatase Total Creatine Kinase CK-MB (Mass) Troponin I NT-Pro-B Natriuret Pep Total Protein Albumin Globulin Albumin/Globulin Ratio Arterial Blood Potassium Urine Color Urine Clarity Urine pH Ur Specific [place] Urine Protein Urine Glucose (UA) Urine Ketones Urine Blood Urine Nitrate Urine Bilirubin Urine Urobilinogen Ur Leukocyte Esterase Urine WBC (Auto) Urine RBC (Auto) Ur Squamous Epith Cells Amorphous Sediment Urine Bacteria Hyaline Casts Influenza Typ A,B (EIA) Blood Type Antibody Screen Antibody Identification Elution DELFINA, Poly Interpret 04/02/18 04/02/18 04/02/18 05:37 05:57 05:57 WBC 23.7 H RBC 2.34 L Hgb 8.4 L Hct 25.2 L MCV 107.4 H MCH 35.7 H MCHC 33.2 RDW 19.6 H Plt Count 53 L MPV 11.0 Neut % (Auto) 71.2 Lymph % (Auto) 27.4 [place] % (Auto) 1.2 Eos % (Auto) 0.0 Baso % (Auto) 0.2 Neut # (Auto) 16.9 H Lymph # (Auto) 6.5 H [place] # (Auto) 0.3 Eos # (Auto) 0.0 Baso # (Auto) 0.0 Differential Comment PT INR APTT Puncture Site Rb pCO2 32 L pO2 70 L HCO3 21.4 ABG pH 7.40 ABG Total CO2 20.8 L ABG O2 Saturation 97.3 ABG Base Excess -4.4 L ABG Hemoglobin 8.6 L ABG Carboxyhemoglobin 3.0 H POC ABG HHb (Measured) 2.6 ABG Methemoglobin 1.3 Ricky Test Na ABG Potassium A-a O2 Difference 318.0 Respiratory Index 4.5 Hgb O2 Saturation 93.1 L Sodium 145 Chloride 113 H Glucose Lactate Vent Mode Prvc Mechanical Rate 18 FiO2 60.0 Tidal Volume 500 PEEP 5 Potassium 3.7 Carbon Dioxide 21 L Anion Gap 15 BUN 76 H Creatinine 1.7 H Est GFR ( Amer) 48 Est GFR (Non-Af Amer) 39 POC Glucose (mg/dL) Random Glucose 152 H Lactic Acid Calcium 7.9 L Phosphorus 5.9 H Magnesium 2.4 H Total Bilirubin 4.3 H AST 22 ALT 49 Alkaline Phosphatase 44 Total Creatine Kinase CK-MB (Mass) Troponin I NT-Pro-B Natriuret Pep Total Protein 5.4 L Albumin 2.6 L Globulin 2.8 Albumin/Globulin Ratio 0.9 L Arterial Blood Potassium Urine Color Urine Clarity Urine pH Ur Specific [place] Urine Protein Urine Glucose (UA) Urine Ketones Urine Blood Urine Nitrate Urine Bilirubin Urine Urobilinogen Ur Leukocyte Esterase Urine WBC (Auto) Urine RBC (Auto) Ur Squamous Epith Cells Amorphous Sediment Urine Bacteria Hyaline Casts Influenza Typ A,B (EIA) Blood Type Antibody Screen Antibody Identification Elution DELFINA, Poly Interpret EKG/Cardiology Studies: Cardiology / EKG Studies 04/01/18 09:55 ELECTROCARDIOGRAM Stat Comment: bed12 Mode Of Transportation: BED Reason For Exam: sob 04/01/18 09:56 ELECTROCARDIOGRAM Stat Comment: bed12 Mode Of Transportation: BED Reason For Exam: sob Fingerstick Blood Sugar Results: 157 Review of Systems - Review of Systems Systems not reviewed;Unavailable: Intubated Critical Care Progress Note - Nutrition Nutrition: Nutrition Category Date Time Status NPO Diet [DIET] Diets 04/01/18 Breakfast Active Assessment/Plan - Assessment and Plan (Free Text) Assessment: 76 year old male with history of CLL, A fib, HTN, CHF, CAD s/p CABG and AICD who presented for evaluation of altered mental status and respiratory distress. Patient was recently started on Ibrutinib for CLL, has had recent hemoptysis. Has had no recent complaints of pain, however became progressively more weak and altered. Admitted to ICU for altered mental status, multifocal pneumonia, NSTEMI. Currently patient is sedated on Versed. Plan: Neuro: intubated Sedated, on Versed 1mg IV Q3 PRN Head CT without contrast 04/01 Multifocal small cortical lucencies without significant volume loss or surrounding edema. Possible subacute infarcts. Possible subacute right basal ganglia lacunar infarcts. Recommend pre and post gadolinium enhanced magnetic resonance imaging for further evaluation to rule out metastasis. 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 Chronic white matter ischemic change. Mild age-appropriate atrophy. Neurology Dr. Paz consulted, help appreciated. Pulmonary: Duonebs Q6 Solumedrol 40mg IV Q8 Telavancin, Pramaxin and Atovaquone as per ID recs CXR 04/02 s/p bronchoscopy: confluent diffuse airspace opacifications seen throughout the right lung and within the left mid lung zone. NG tube in stomach. ETT extending to mid thoracic trachea. Scattered nodular densities in both lungs. Cardiomegaly. L sided pacemaker. Degenerative changes in the spine and shoulders. CXR 04/02 revealed Possible small loculated left hydro pneumothorax. Follow-up advised. Left hydropneumothorax not seen on prior CT from 04/01, no further studies necessary at this time. Chest CT 04/01 Multifocal consolidation with vaguely masslike opacities in both upper lobes. Possible multifocal pneumonia. Followup to clearing to rule out underlying neoplasm. Small bilateral pleural effusion. Cardiomegaly. AICD. CABG. ET tube and NG tube. Dilated main pulmonary artery. Ascites. Mild splenomegaly. ABG 04/02 pH 7.40 pCO2 32 HCO3 21.4 pO2 70 Mycoplasma negative Legionella negative Procalcitonin 6.99 04/02: Bedside bronchoscopy revealed mucous plug, with bloody secretions Cardiovascular: EKG: Afib at 135, normal axis, T wave inversions in I, AVL, AVF, V5-6, no ST changes Trop 0.2140 --> 0.[address] Valerio consulted, help appreciated Hx of CAD with CABG and AICD in place Right IJ central line placed BP 109/51 On Phenylephrine 20mcg/min On Vasopressin 0.02units/min Albumin 12.5mg Q12 NS IVF @ 100cc/hr Tachycardic 130s initially, now 104 ECHO f/u Renal: BUN/Cr 76/1.7 Continue to monitor electrolytes, K repleted I&Os , +2477ml Reese in place Endo: maintain euglycemia GI PPX: Pepcid 20mg IV Abdomen US completed ordered, given patient's stated possible liver cirrhosis and unspecified kidney growth ID Dr. Lu consulted, help appreciated White count 23.7 Febrile to 101.3 HR 130s Tylenol 650mg PO Q6 PRN fever Telavancin, Pramaxin and Atovaquone as per ID recs Blood cultures, urine cultures and sputum cultures sent Heme Dr. Ibarra consulted, help appreciated Hx of CLL with hemolytic anemia Hb 8.4/Hct 25.2 Plts 53 Continue to monitor PPX: SCDs Code status: full code Social: Palliative care consult ordered. Case discussed with Dr. Rubi <Anthony Rubi S - Last Filed: 04/02/18 17:06> CCU Subjective - Physician Review Critical Care Time Spent (in minutes): 45 CCU Objective - Vital Signs / Intake & Output Vital Signs (Last 4 hours): Vital Signs Temp Pulse Resp BP Pulse Ox 04/02/18 14:04 100 H 17 105/48 L 95 04/02/18 13:40 100.2 F H 04/02/18 13:34 105 H 19 114/51 L 95 04/02/18 13:04 109 H 17 107/53 L 100 Intake and Output (Last 8hrs): Intake & Output 04/02/18 04/02/18 04/02/18 06:59 14:59 22:59 Intake Total 1952.8 1290.1 30.5 Output Total 1375 950 Balance 577.8 340.1 30.5 Weight 177 lb 11.081 oz Intake: IV 66 232.5 30.5 Intake, IV Amount 1461.8 907.6 Right Antecubital 600 Right Distal Port 170 95 Internal Jugular Right Medial Port 673.8 700 Internal Jugular Right Proximal Port 18.0 12.6 Internal Jugular Right Upper arm 100 Tube Feeding 0 150 Blood Product 325 Red Blood Cells Cpd As1 325 Lr Unit [id number] Other 100 Red Blood Cells Cpd As1 100 Lr Unit [id number] Output: Urine 1375 950 Urethral (Reese) 1375 950 Other: # Bowel Movements 1 - Medications Active Medications: Active Medications Generic Name Dose Route Start Last Admin Trade Name Freq PRN Reason Stop Dose Admin Acetaminophen 650 mg 04/01/18 12:28 04/02/18 12:40 Tylenol 325mg Tab PO 650 mg Q6 PRN Administration Fever >100.4 F Albumin Human 12.5 gm 04/01/18 15:07 04/02/18 09:19 Albumin Human 25% (12.5 Gm/50 Ml) IV 12.5 gm Q12 JACK Administration Atovaquone 750 mg 04/01/18 18:00 04/02/18 09:19 Mepron PO 750 mg BID JACK Administration Protocol Famotidine 20 mg 04/01/18 22:00 04/01/18 21:21 Pepcid IVP 20 mg Q24H JACK Administration Norepinephrine Bitartrate 4 mg 254 mls @ 15.24 mls/hr 04/01/18 13:46 00:05 / Sodium Chloride IV 0 mcg/min .[id number] PRN 0 mls/hr TITRATE PER MD ORDER Titration Protocol 4 MCG/MIN Vasopressin 40 units/ Sodium 40 mls @ 1.2 mls/hr 04/01/18 14:00 04/02/18 04: 42 Chloride IV 0.03 units/min .Q24H PRN 1.8 mls/hr TITRATE PER PROTOCOL Titration Protocol 0.02 UNITS/MIN Sodium Chloride 1,000 mls @ 100 mls/hr 04/01/18 15:15 04/02/18 15:12 Sodium Chloride 0.9% IV 100 mls/hr .Q10H JACK Administration Telavancin 700 mg/ Dextrose 100 mls @ 100 mls/hr 04/01/18 17:45 04/02/18 16: 53 IVPB 100 mls/hr Q24H JACK Administration Protocol Imipenem/Cilastatin Sodium 500 100 mls @ 100 mls/hr 04/01/18 18:00 04/02/18 09:19 mg/ Sodium Chloride IVPB 100 mls/hr Q8H JACK Administration Protocol Phenylephrine HCl 30 mg/ 253 mls @ 10.12 mls/hr 04/01/18 21:00 04/02/18 16:00 Sodium Chloride IV 39.52 mcg/min .Q24H PRN 20 mls/hr TITRATE PER MD ORDER Titration Protocol 20 MCG/MIN Methylprednisolone 40 mg 04/01/18 16:00 04/02/18 16:51 Solu-Medrol IVP 40 mg Q12H JACK Administration Midazolam HCl 1 mg 04/01/18 16:51 04/01/18 21:34 Versed Inj IVP 1 mg Q3 PRN Administration Agitation - Patient Studies Lab Studies: Microbiology Studies 04/01/18 14:04 Blood Culture - Preliminary Blood NO GROWTH AFTER 24 HOURS 04/01/18 14:04 Blood Culture - Preliminary Blood NO GROWTH AFTER 24 HOURS 04/01/18 17:43 Gram Stain - Final Trachasp Lab Studies 04/02/18 04/02/18 04/02/18 Range/Units 11:44 10:20 05:57 WBC (4.8-10.8) K/uL RBC (4.40-5.90) Mil/uL Hgb (12.0-18.0) g/dL Hct (35.0-51.0) % MCV (80.0-94.0) fL MCH (27.0-31.0) pg MCHC (33.0-37.0) g/dL RDW (11.5-14.5) % Plt Count (130-400) K/uL MPV (7.2-11.7) fL Neut % (Auto) (50.0-75.0) % Lymph % (Auto) (20.0-40.0) % [place] % (Auto) (0.0-10.0) % Eos % (Auto) (0.0-4.0) % Baso % (Auto) (0.0-2.0) % Neut # (Auto) (1.8-7.0) K/uL Lymph # (Auto) (1.0-4.3) K/uL [place] # (Auto) (0.0-0.8) K/uL Eos # (Auto) (0.0-0.7) K/uL Baso # (Auto) (0.0-0.2) K/uL Differential Comment Puncture Site pCO2 (35-45) mm/Hg pO2 (80-100) mm/Hg HCO3 (21-28) mmol/L ABG pH (7.35-7.45) ABG Total CO2 (22-28) mmol/L ABG O2 Saturation (95-98) % ABG Base Excess (-2.0-3.0) mmol/L ABG Hemoglobin (11.7-17.4) g/dL ABG Carboxyhemoglobin (0.5-1.5) % POC ABG HHb (Measured) (0.0-5.0) % ABG Methemoglobin (0.0-3.0) % Ricky Test A-a O2 Difference mm/Hg Respiratory Index Hgb O2 Saturation (95.0-98.0) % Vent Mode Mechanical Rate FiO2 % Tidal Volume PEEP Sodium 145 (132-148) mmol/L Potassium 3.7 (3.6-5.2) mmol/L Chloride 113 H (98-107) mmol/L Carbon Dioxide 21 L (22-30) mmol/L Anion Gap 15 (10-20) BUN 76 H (9-20) mg/dL Creatinine 1.7 H (0.8-1.5) mg/dL Est GFR ( Amer) 48 Est GFR (Non-Af Amer) 39 POC Glucose (mg/dL) 158 H (65-110) mg/dL Random Glucose 152 H (75-110) mg/dL Calcium 7.9 L (8.6-10.4) mg/dl Phosphorus 5.9 H (2.5-4.5) mg/dL Magnesium 2.4 H (1.6-2.3) mg/dL Total Bilirubin 4.3 H (0.2-1.3) mg/dL AST 22 (17-59) U/L ALT 49 (21-72) U/L Alkaline Phosphatase 44 (38-126) U/L Total Creatine Kinase (55-170) U/L CK-MB (Mass) (0.0-3.38) ng/mL Troponin I (0.00-0.120) ng/mL Total Protein 5.4 L (6.3-8.3) g/dL Albumin 2.6 L (3.5-5.0) g/dL Globulin 2.8 (2.2-3.9) gm/dL Albumin/Globulin Ratio 0.9 L (1.0-2.1) Procalcitonin 6.99 H (0.19-0.49) NG/ML Ur L.pneumophila Ag Negative (NEGATIVE) Mycoplasma pneumon IgM Negative (NEGATIVE) Blood Type Antibody Screen Antibody Identification Elution DELFINA, Poly Interpret (NEGATIVE) 04/02/18 04/02/18 04/02/18 Range/Units 05:57 05:37 05:32 WBC 23.7 H (4.8-10.8) K/uL RBC 2.34 L (4.40-5.90) Mil/uL Hgb 8.4 L (12.0-18.0) g/dL Hct 25.2 L (35.0-51.0) % MCV 107.4 H (80.0-94.0) fL MCH 35.7 H (27.0-31.0) pg MCHC 33.2 (33.0-37.0) g/dL RDW 19.6 H (11.5-14.5) % Plt Count 53 L (130-400) K/uL MPV 11.0 (7.2-11.7) fL Neut % (Auto) 71.2 (50.0-75.0) % Lymph % (Auto) 27.4 (20.0-40.0) % [place] % (Auto) 1.2 (0.0-10.0) % Eos % (Auto) 0.0 (0.0-4.0) % Baso % (Auto) 0.2 (0.0-2.0) % Neut # (Auto) 16.9 H (1.8-7.0) K/uL Lymph # (Auto) 6.5 H (1.0-4.3) K/uL [place] # (Auto) 0.3 (0.0-0.8) K/uL Eos # (Auto) 0.0 (0.0-0.7) K/uL Baso # (Auto) 0.0 (0.0-0.2) K/uL Differential Comment Puncture Site Rb pCO2 32 L (35-45) mm/Hg pO2 70 L (80-100) mm/Hg HCO3 21.4 (21-28) mmol/L ABG pH 7.40 (7.35-7.45) ABG Total CO2 20.8 L (22-28) mmol/L ABG O2 Saturation 97.3 (95-98) % ABG Base Excess -4.4 L (-2.0-3.0) mmol/L ABG Hemoglobin 8.6 L (11.7-17.4) g/dL ABG Carboxyhemoglobin 3.0 H (0.5-1.5) % POC ABG HHb (Measured) 2.6 (0.0-5.0) % ABG Methemoglobin 1.3 (0.0-3.0) % Ricky Test Na A-a O2 Difference 318.0 mm/Hg Respiratory Index 4.5 Hgb O2 Saturation 93.1 L (95.0-98.0) % Vent Mode Prvc Mechanical Rate 18 FiO2 60.0 % Tidal Volume 500 PEEP 5 Sodium (132-148) mmol/L Potassium (3.6-5.2) mmol/L Chloride (98-107) mmol/L Carbon Dioxide (22-30) mmol/L Anion Gap (10-20) BUN (9-20) mg/dL Creatinine (0.8-1.5) mg/dL Est GFR ( Amer) Est GFR (Non-Af Amer) POC Glucose (mg/dL) 130 H (65-110) mg/dL Random Glucose (75-110) mg/dL Calcium (8.6-10.4) mg/dl Phosphorus (2.5-4.5) mg/dL Magnesium (1.6-2.3) mg/dL Total Bilirubin (0.2-1.3) mg/dL AST (17-59) U/L ALT (21-72) U/L Alkaline Phosphatase (38-126) U/L Total Creatine Kinase (55-170) U/L CK-MB (Mass) (0.0-3.38) ng/mL Troponin I (0.00-0.120) ng/mL Total Protein (6.3-8.3) g/dL Albumin (3.5-5.0) g/dL Globulin (2.2-3.9) gm/dL Albumin/Globulin Ratio (1.0-2.1) Procalcitonin (0.19-0.49) NG/ML Ur L.pneumophila Ag (NEGATIVE) Mycoplasma pneumon IgM (NEGATIVE) Blood Type Antibody Screen Antibody Identification Elution DELFINA, Poly Interpret (NEGATIVE) 04/01/18 04/01/18 04/01/18 Range/Units 23:26 22:28 22:28 WBC 24.8 H (4.8-10.8) K/uL RBC 2.17 L (4.40-5.90) Mil/uL Hgb 7.8 L (12.0-18.0) g/dL Hct 23.7 L (35.0-51.0) % MCV 109.2 H (80.0-94.0) fL MCH 36.1 H (27.0-31.0) pg MCHC 33.0 (33.0-37.0) g/dL RDW 16.1 H (11.5-14.5) % Plt Count 66 L (130-400) K/uL MPV 9.5 (7.2-11.7) fL Neut % (Auto) (50.0-75.0) % Lymph % (Auto) (20.0-40.0) % [place] % (Auto) (0.0-10.0) % Eos % (Auto) (0.0-4.0) % Baso % (Auto) (0.0-2.0) % Neut # (Auto) (1.8-7.0) K/uL Lymph # (Auto) (1.0-4.3) K/uL [place] # (Auto) (0.0-0.8) K/uL Eos # (Auto) (0.0-0.7) K/uL Baso # (Auto) (0.0-0.2) K/uL Differential Comment Puncture Site pCO2 (35-45) mm/Hg pO2 (80-100) mm/Hg HCO3 (21-28) mmol/L ABG pH (7.35-7.45) ABG Total CO2 (22-28) mmol/L ABG O2 Saturation (95-98) % ABG Base Excess (-2.0-3.0) mmol/L ABG Hemoglobin (11.7-17.4) g/dL ABG Carboxyhemoglobin (0.5-1.5) % POC ABG HHb (Measured) (0.0-5.0) % ABG Methemoglobin (0.0-3.0) % Ricky Test A-a O2 Difference mm/Hg Respiratory Index Hgb O2 Saturation (95.0-98.0) % Vent Mode Mechanical Rate FiO2 % Tidal Volume PEEP Sodium (132-148) mmol/L Potassium (3.6-5.2) mmol/L Chloride (98-107) mmol/L Carbon Dioxide (22-30) mmol/L Anion Gap (10-20) BUN (9-20) mg/dL Creatinine (0.8-1.5) mg/dL Est GFR ( Amer) Est GFR (Non-Af Amer) POC Glucose (mg/dL) 157 H (65-110) mg/dL Random Glucose (75-110) mg/dL Calcium (8.6-10.4) mg/dl Phosphorus (2.5-4.5) mg/dL Magnesium (1.6-2.3) mg/dL Total Bilirubin (0.2-1.3) mg/dL AST (17-59) U/L ALT (21-72) U/L Alkaline Phosphatase (38-126) U/L Total Creatine Kinase 56 (55-170) U/L CK-MB (Mass) 1.67 (0.0-3.38) ng/mL Troponin I 0.2620 H* (0.00-0.120) ng/mL Total Protein (6.3-8.3) g/dL Albumin (3.5-5.0) g/dL Globulin (2.2-3.9) gm/dL Albumin/Globulin Ratio (1.0-2.1) Procalcitonin (0.19-0.49) NG/ML Ur L.pneumophila Ag (NEGATIVE) Mycoplasma pneumon IgM (NEGATIVE) Blood Type Antibody Screen Antibody Identification Elution DELFINA, Poly Interpret (NEGATIVE) 04/01/18 04/01/18 04/01/18 Range/Units 17:32 12:55 11:17 WBC (4.8-10.8) K/uL RBC (4.40-5.90) Mil/uL Hgb (12.0-18.0) g/dL Hct (35.0-51.0) % MCV (80.0-94.0) fL MCH (27.0-31.0) pg MCHC (33.0-37.0) g/dL RDW (11.5-14.5) % Plt Count (130-400) K/uL MPV (7.2-11.7) fL Neut % (Auto) (50.0-75.0) % Lymph % (Auto) (20.0-40.0) % Crenshaw % (Auto) (0.0-10.0) % Eos % (Auto) (0.0-4.0) % Baso % (Auto) (0.0-2.0) % Neut # (Auto) (1.8-7.0) K/uL Lymph # (Auto) (1.0-4.3) K/uL Crenshaw # (Auto) (0.0-0.8) K/uL Eos # (Auto) (0.0-0.7) K/uL Baso # (Auto) (0.0-0.2) K/uL Differential Comment Puncture Site pCO2 (35-45) mm/Hg pO2 (80-100) mm/Hg HCO3 (21-28) mmol/L ABG pH (7.35-7.45) ABG Total CO2 (22-28) mmol/L ABG O2 Saturation (95-98) % ABG Base Excess (-2.0-3.0) mmol/L ABG Hemoglobin (11.7-17.4) g/dL ABG Carboxyhemoglobin (0.5-1.5) % POC ABG HHb (Measured) (0.0-5.0) % ABG Methemoglobin (0.0-3.0) % Ricky Test A-a O2 Difference mm/Hg Respiratory Index Hgb O2 Saturation (95.0-98.0) % Vent Mode Mechanical Rate FiO2 % Tidal Volume PEEP Sodium (132-148) mmol/L Potassium (3.6-5.2) mmol/L Chloride (98-107) mmol/L Carbon Dioxide (22-30) mmol/L Anion Gap (10-20) BUN (9-20) mg/dL Creatinine (0.8-1.5) mg/dL Est GFR ( Amer) Est GFR (Non-Af Amer) POC Glucose (mg/dL) 123 H 112 H (65-110) mg/dL Random Glucose (75-110) mg/dL Calcium (8.6-10.4) mg/dl Phosphorus (2.5-4.5) mg/dL Magnesium (1.6-2.3) mg/dL Total Bilirubin (0.2-1.3) mg/dL AST (17-59) U/L ALT (21-72) U/L Alkaline Phosphatase (38-126) U/L Total Creatine Kinase (55-170) U/L CK-MB (Mass) (0.0-3.38) ng/mL Troponin I (0.00-0.120) ng/mL Total Protein (6.3-8.3) g/dL Albumin (3.5-5.0) g/dL Globulin (2.2-3.9) gm/dL Albumin/Globulin Ratio (1.0-2.1) Procalcitonin (0.19-0.49) NG/ML Ur L.pneumophila Ag (NEGATIVE) Mycoplasma pneumon IgM (NEGATIVE) Blood Type A POSITIVE Antibody Screen Positive Antibody Identification Non Specific Antibody Elution Positive DELFINA, Poly Interpret Positive H (NEGATIVE) Laboratory Results - last 24 hr 04/01/18 04/01/18 04/01/18 11:17 12:55 17:32 WBC RBC Hgb Hct MCV MCH MCHC RDW Plt Count MPV Neut % (Auto) Lymph % (Auto) Crenshaw % (Auto) Eos % (Auto) Baso % (Auto) Neut # (Auto) Lymph # (Auto) Crenshaw # (Auto) Eos # (Auto) Baso # (Auto) Differential Comment Puncture Site pCO2 pO2 HCO3 ABG pH ABG Total CO2 ABG O2 Saturation ABG Base Excess ABG Hemoglobin ABG Carboxyhemoglobin POC ABG HHb (Measured) ABG Methemoglobin Ricyk Test A-a O2 Difference Respiratory Index Hgb O2 Saturation Vent Mode Mechanical Rate FiO2 Tidal Volume PEEP Sodium Potassium Chloride Carbon Dioxide Anion Gap BUN Creatinine Est GFR ( Amer) Est GFR (Non-Af Amer) POC Glucose (mg/dL) 112 H 123 H Random Glucose Calcium Phosphorus Magnesium Total Bilirubin AST ALT Alkaline Phosphatase Total Creatine Kinase CK-MB (Mass) Troponin I Total Protein Albumin Globulin Albumin/Globulin Ratio Procalcitonin Ur L.pneumophila Ag Mycoplasma pneumon IgM Blood Type A POSITIVE Antibody Screen Positive Antibody Identification Non Specific Antibody Elution Positive DELFINA, Poly Interpret Positive H 04/01/18 04/01/18 04/01/18 22:28 22:28 23:26 WBC 24.8 H RBC 2.17 L Hgb 7.8 L Hct 23.7 L MCV 109.2 H MCH 36.1 H MCHC 33.0 RDW 16.1 H Plt Count 66 L MPV 9.5 Neut % (Auto) Lymph % (Auto) Crenshaw % (Auto) Eos % (Auto) Baso % (Auto) Neut # (Auto) Lymph # (Auto) Crenshaw # (Auto) Eos # (Auto) Baso # (Auto) Differential Comment Puncture Site pCO2 pO2 HCO3 ABG pH ABG Total CO2 ABG O2 Saturation ABG Base Excess ABG Hemoglobin ABG Carboxyhemoglobin POC ABG HHb (Measured) ABG Methemoglobin Ricky Test A-a O2 Difference Respiratory Index Hgb O2 Saturation Vent Mode Mechanical Rate FiO2 Tidal Volume PEEP Sodium Potassium Chloride Carbon Dioxide Anion Gap BUN Creatinine Est GFR ( Amer) Est GFR (Non-Af Amer) POC Glucose (mg/dL) 157 H Random Glucose Calcium Phosphorus Magnesium Total Bilirubin AST ALT Alkaline Phosphatase Total Creatine Kinase 56 CK-MB (Mass) 1.67 Troponin I 0.2620 H* Total Protein Albumin Globulin Albumin/Globulin Ratio Procalcitonin Ur L.pneumophila Ag Mycoplasma pneumon IgM Blood Type Antibody Screen Antibody Identification Elution DELFINA, Poly Interpret 04/02/18 04/02/18 04/02/18 05:32 05:37 05:57 WBC 23.7 H RBC 2.34 L Hgb 8.4 L Hct 25.2 L MCV 107.4 H MCH 35.7 H MCHC 33.2 RDW 19.6 H Plt Count 53 L MPV 11.0 Neut % (Auto) 71.2 Lymph % (Auto) 27.4 Crenshaw % (Auto) 1.2 Eos % (Auto) 0.0 Baso % (Auto) 0.2 Neut # (Auto) 16.9 H Lymph # (Auto) 6.5 H Crenshaw # (Auto) 0.3 Eos # (Auto) 0.0 Baso # (Auto) 0.0 Differential Comment Puncture Site Rb pCO2 32 L pO2 70 L HCO3 21.4 ABG pH 7.40 ABG Total CO2 20.8 L ABG O2 Saturation 97.3 ABG Base Excess -4.4 L ABG Hemoglobin 8.6 L ABG Carboxyhemoglobin 3.0 H POC ABG HHb (Measured) 2.6 ABG Methemoglobin 1.3 Ricky Test Na A-a O2 Difference 318.0 Respiratory Index 4.5 Hgb O2 Saturation 93.1 L Vent Mode Prvc Mechanical Rate 18 FiO2 60.0 Tidal Volume 500 PEEP 5 Sodium Potassium Chloride Carbon Dioxide Anion Gap BUN Creatinine Est GFR ( Amer) Est GFR (Non-Af Amer) POC Glucose (mg/dL) 130 H Random Glucose Calcium Phosphorus Magnesium Total Bilirubin AST ALT Alkaline Phosphatase Total Creatine Kinase CK-MB (Mass) Troponin I Total Protein Albumin Globulin Albumin/Globulin Ratio Procalcitonin Ur L.pneumophila Ag Mycoplasma pneumon IgM Blood Type Antibody Screen Antibody Identification Elution DELFINA, Poly Interpret 04/02/18 04/02/18 04/02/18 05:57 10:20 11:44 WBC RBC Hgb Hct MCV MCH MCHC RDW Plt Count MPV Neut % (Auto) Lymph % (Auto) Crenshaw % (Auto) Eos % (Auto) Baso % (Auto) Neut # (Auto) Lymph # (Auto) Crenshaw # (Auto) Eos # (Auto) Baso # (Auto) Differential Comment Puncture Site pCO2 pO2 HCO3 ABG pH ABG Total CO2 ABG O2 Saturation ABG Base Excess ABG Hemoglobin ABG Carboxyhemoglobin POC ABG HHb (Measured) ABG Methemoglobin Ricky Test A-a O2 Difference Respiratory Index Hgb O2 Saturation Vent Mode Mechanical Rate FiO2 Tidal Volume PEEP Sodium 145 Potassium 3.7 Chloride 113 H Carbon Dioxide 21 L Anion Gap 15 BUN 76 H Creatinine 1.7 H Est GFR ( Amer) 48 Est GFR (Non-Af Amer) 39 POC Glucose (mg/dL) 158 H Random Glucose 152 H Calcium 7.9 L Phosphorus 5.9 H Magnesium 2.4 H Total Bilirubin 4.3 H AST 22 ALT 49 Alkaline Phosphatase 44 Total Creatine Kinase CK-MB (Mass) Troponin I Total Protein 5.4 L Albumin 2.6 L Globulin 2.8 Albumin/Globulin Ratio 0.9 L Procalcitonin 6.99 H Ur L.pneumophila Ag Negative Mycoplasma pneumon IgM Negative Blood Type Antibody Screen Antibody Identification Elution DELFINA, Poly Interpret Critical Care Progress Note - Nutrition Nutrition: Nutrition Category Date Time Status NPO Diet [DIET] Diets 04/01/18 Breakfast Active Attending/Attestation - Attestation I have personally seen and examined this patient.: Yes I have fully participated in the care of the patient.: Yes I have reviewed all pertinent clinical information: Yes Notes (Text): 04/02/18 17:03 patient seen and examined in the intensive care unit. Patient intubated on ventilatory support FiO2 60% Status post bronchoscopy with bronchoalveolar lavage, hick blood-tinged secretions noted Continue IV antibiotics Follow-up culture and sensitivity Start NGT feeding Monitored H&H
[2018-04-02] MEDS ORDERED: EPINEPHrine 1 mg/ml (1:1000) Inj ONE (10:43)
[2018-04-02] MEDS ORDERED: Lidocaine 2% MPF (5 ml) Inj ONE ×2 (10:43)
--- NOTE | 2018-04-02 11:04 | CP.PCM.PN ---
<Shilo Glasgow - Last Filed: 04/02/18 17:37> Subjective - Date & Time of Evaluation Date of Evaluation: 04/02/18 Time of Evaluation: 11:33 - Subjective Subjective: PGY 3 Cardiology Progress Note- Dr. Valerio's service Patient remains intubated and sedated bedside. Per nursing, no acute events overnight. Patient not able to respond to an ROS at this time. Objective - Vital Signs/Intake and Output Vital Signs (last 24 hours): Temp Pulse Resp BP Pulse Ox 99.8 F H 100 H 19 93/52 L 94 L 04/02/18 08:00 04/02/18 08:00 04/02/18 08:00 04/02/18 07:57 04/02/18 08:00 Intake and Output: 04/02/18 04/02/18 06:59 18:59 Intake Total 2450.7 276.8 Output Total 1550 225 Balance 900.7 51.8 - Medications Medications: Current Medications Acetaminophen (Tylenol 325mg Tab) 650 mg PO Q6 PRN PRN Reason: Fever >100.4 F Last Admin: 04/02/18 00:28 Dose: 650 mg Albumin Human (Albumin Human 25% (12.5 Gm/50 Ml)) 12.5 gm IV Q12 JACK Last Admin: 04/02/18 09:19 Dose: 12.5 gm Albuterol Sulfate (Albuterol 0.083% Inhal Elisa (2.5 Mg/3 Ml) Ud) 2.5 mg IH RQ6 JACK Last Admin: 04/02/18 08:00 Dose: 2.5 mg Atovaquone (Mepron) 750 mg PO BID JACK PRN Reason: Protocol Last Admin: 04/02/18 09:19 Dose: 750 mg Famotidine (Pepcid) 20 mg IVP Q24H JACK Last Admin: 04/01/18 21:21 Dose: 20 mg Norepinephrine Bitartrate 4 mg (/ Sodium Chloride) 254 mls @ 15.24 mls/hr IV .[id number] PRN; Protocol; 4 MCG/MIN PRN Reason: TITRATE PER MD ORDER Last Titration: 04/02/18 00:05 Dose: 0 mcg/min, 0 mls/hr Vasopressin 40 units/ Sodium (Chloride) 40 mls @ 1.2 mls/hr IV .Q24H PRN; Protocol; 0.02 UNITS/MIN PRN Reason: TITRATE PER PROTOCOL Last Titration: 04/02/18 04:42 Dose: 0.03 units/min, 1.8 mls/hr Sodium Chloride (Sodium Chloride 0.9%) 1,000 mls @ 100 mls/hr IV .Q10H [facility] Last Admin: 04/02/18 00:46 Dose: 100 mls/hr Telavancin 700 mg/ Dextrose 100 mls @ 100 mls/hr IVPB Q24H JACK PRN Reason: Protocol Last Admin: 04/01/18 18:43 Dose: 100 mls/hr Imipenem/Cilastatin Sodium 500 (mg/ Sodium Chloride) 100 mls @ 100 mls/hr IVPB Q8H JACK PRN Reason: Protocol Last Admin: 04/02/18 09:19 Dose: 100 mls/hr Phenylephrine HCl 30 mg/ (Sodium Chloride) 253 mls @ 10.12 mls/hr IV .Q24H PRN ; Protocol; 20 MCG/MIN PRN Reason: TITRATE PER MD ORDER Last Titration: 04/02/18 07:45 Dose: 30 mcg/min, 15.18 mls/hr Methylprednisolone (Solu-Medrol) 40 mg IVP Q12H [facility] Last Admin: 04/02/18 04:08 Dose: 40 mg Midazolam HCl (Versed Inj) 1 mg IVP Q3 PRN PRN Reason: Agitation Last Admin: 04/01/18 21:34 Dose: 1 mg - Labs Labs: 04/02/18 05:57 04/02/18 05:57 PT 18.5 SECONDS (9.7-12.2) H 04/01/18 10:09 INR 1.7 04/01/18 10:09 APTT 28 SECONDS (21-34) 04/01/18 10:09 - Constitutional Appears: No Acute Distress, Other (sedated) - Head Exam Head Exam: ATRAUMATIC, NORMAL INSPECTION - Eye Exam Eye Exam: Scleral icterus Pupil Exam: NORMAL ACCOMODATION - ENT Exam ENT Exam: Mucous Membranes Moist - Neck Exam Neck Exam: Full ROM - Respiratory Exam Respiratory Exam: NORMAL BREATHING PATTERN - Cardiovascular Exam Cardiovascular Exam: Irregular Rhythm, +S1, +S2. absent: Tachycardia - GI/Abdominal Exam GI & Abdominal Exam: Soft, Normal Bowel Sounds - Exam Additional comments: villegas catheter in place draining yellow urine - Extremities Exam Extremities Exam: Full ROM, Normal Capillary Refill, Pedal Edema (2+ past the knees bilaterally in lower extremities, 2+ edema in upper extremities bilaterally) - Back Exam Back Exam: Full ROM - Neurological Exam Neurological Exam: Alert, Awake - Psychiatric Exam Psychiatric exam: Normal Affect, Normal Mood - Skin Skin Exam: Dry, Normal Color, Warm Additional comments: jaundiced Assessment and Plan (1) Sepsis Assessment & Plan: Leukocytosis noted- (on Steroids as well) Hypotensive and Tachycardic on admission Currently on Imipenem, Telavancin and Atovaquone at this time NS @ 100 mls per hour noted. ID and Critical care monitoring Status: Acute (2) Atrial fibrillation Assessment & Plan: EKG-atrial fibrillation noted. Rate controlled. Continue to monitor Status: Chronic (3) History of coronary artery disease Assessment & Plan: Patient has had CABG before as well as AICD placement Will benefit from ASA/Plavix therapy however so patient has had recent episodes of hemoptysis- Will hold at this time. Monitor Status: Chronic (4) CHF (congestive heart failure) Assessment & Plan: BNP 9300 F/U Echo report Status: Chronic (5) HTN (hypertension) Assessment & Plan: Hypotensive on Monitoring earlier Recommendations for Pressor support to be increased Monitor Status: Chronic (6) Prophylactic measure Assessment & Plan: Pepcid 20 mg IV Q24 SCDs Chemical anticoagulation held at this time. due to episodes of hemoptysis Status: Acute <Jeffery Valerio - Last Filed: 04/02/18 21:44> Objective - Vital Signs/Intake and Output Vital Signs (last 24 hours): Temp Pulse Resp BP Pulse Ox 100.2 F H 115 H 17 108/57 L 96 04/02/18 16:00 04/02/18 20:15 04/02/18 20:15 04/02/18 20:04 04/02/18 20:15 Intake and Output: 04/02/18 04/03/18 18:59 06:59 Intake Total 1907.8 121.8 Output Total 1300 Balance 607.8 121.8 - Medications Medications: Current Medications Acetaminophen (Tylenol 325mg Tab) 650 mg PO Q6 PRN PRN Reason: Fever >100.4 F Last Admin: 04/02/18 12:40 Dose: 650 mg Albumin Human (Albumin Human 25% (12.5 Gm/50 Ml)) 12.5 gm IV Q12 [facility] Last Admin: 04/02/18 09:19 Dose: 12.5 gm Atovaquone (Mepron) 750 mg PO BID JACK PRN Reason: Protocol Last Admin: 04/02/18 18:02 Dose: 750 mg Famotidine (Pepcid) 20 mg IVP Q24H [facility] Last Admin: 04/01/18 21:21 Dose: 20 mg Vasopressin 40 units/ Sodium (Chloride) 40 mls @ 1.2 mls/hr IV .Q24H PRN; Protocol; 0.02 UNITS/MIN PRN Reason: TITRATE PER PROTOCOL Last Titration: 04/02/18 04:42 Dose: 0.03 units/min, 1.8 mls/hr Sodium Chloride (Sodium Chloride 0.9%) 1,000 mls @ 100 mls/hr IV .Q10H [facility] Last Admin: 04/02/18 21:16 Dose: Not Given Telavancin 700 mg/ Dextrose 100 mls @ 100 mls/hr IVPB Q24H [facility] PRN Reason: Protocol Last Admin: 04/02/18 16:53 Dose: 100 mls/hr Imipenem/Cilastatin Sodium 500 (mg/ Sodium Chloride) 100 mls @ 100 mls/hr IVPB Q8H [facility] PRN Reason: Protocol Last Admin: 04/02/18 18:02 Dose: 100 mls/hr Phenylephrine HCl 30 mg/ (Sodium Chloride) 253 mls @ 10.12 mls/hr IV .Q24H PRN ; Protocol; 20 MCG/MIN PRN Reason: TITRATE PER MD ORDER Last Titration: 04/02/18 16:00 Dose: 39.52 mcg/min, 20 mls/hr Methylprednisolone (Solu-Medrol) 40 mg IVP Q12H [facility] Last Admin: 04/02/18 16:51 Dose: 40 mg Midazolam HCl (Versed Inj) 1 mg IVP Q3 PRN PRN Reason: Agitation Last Admin: 04/01/18 21:34 Dose: 1 mg - Labs Labs: 04/02/18 05:57 04/02/18 05:57 PT 18.5 SECONDS (9.7-12.2) H 04/01/18 10:09 INR 1.7 04/01/18 10:09 APTT 28 SECONDS (21-34) 04/01/18 10:09 Assessment and Plan - Assessment and Plan (Free Text) Assessment: Patient seen and evaluated personally by me Plan of care d/w the medical communication specialist and as documented
[2018-04-02] MEDS: Phenylephrine 30 MG in Sodium Chloride 0.9% 250 ML IV PRN (11:31)
[2018-04-02 12:23] LABS: LEGIONELLA AG URINE NEGATIVE (NEGATIVE)
--- NOTE | 2018-04-02 13:35 | RAD ---
Chest x-ray single frontal view History: Endotracheal tube positioning. Comparison: 04/01/2018 Findings: Endotracheal tube extending into mid thoracic trachea. NG tube extending into the stomach. Distal tip not well visualized. Right central venous catheter tip extending into the right SVC. Confluent diffuse airspace opacifications seen throughout the right lung and within the left mid lung zone. Scattered nodular densities in both lungs. Cardiomegaly. Left-sided pacemaker. Degenerative changes in the spine and shoulders. Impression: Endotracheal tube extending into mid thoracic trachea. NG tube extending into the stomach. Distal tip not well visualized. Right central venous catheter tip extending into the right SVC. Confluent diffuse airspace opacifications seen throughout the right lung and within the left mid lung zone. Scattered nodular densities in both lungs. Cardiomegaly. Left-sided pacemaker. Degenerative changes in the spine and shoulders.
[2018-04-02 14:40] LABS: MYCOPLASMA PNEUMONIAE IGM NEGATIVE (NEGATIVE)
--- NOTE | 2018-04-02 14:50 | RAD ---
Date of service: 04/02/2018 HISTORY: pneumonia COMPARISON: 04/01/2018 FINDINGS: LUNGS: Extensive persistent opacity mid and upper right lung and upper left lung, without interval change. Possible pneumonia. PLEURA: Small left pleural effusion. No evidence of right pleural effusion. There is an air/ fluid level at the left base suggesting possible loculated hydro pneumothorax. There is no generalized pneumothorax appreciated. This was not evident on CT examination of the previous day. Followup advised. CARDIOVASCULAR: CABG. AICD. Right IJ multi lumen central venous catheter. ET tube, and NG tube all grossly unchanged in position. OSSEOUS STRUCTURES: No significant abnormalities. VISUALIZED UPPER ABDOMEN: Normal. OTHER FINDINGS: None. IMPRESSION: Bilateral infiltrates, right greater than left. Small left pleural effusion. Possible small loculated left hydro pneumothorax. Follow-up advised.
--- NOTE | 2018-04-02 15:39 | US ---
Date of service: 04/01/2018 HISTORY: hx of possible liver cirrhosis, poss kidney mass COMPARISON: None. TECHNIQUE: Sonographic evaluation of the abdomen. FINDINGS: LIVER: Measures 19.2 cm. Diffuse increased echogenicity of the liver parenchyma with nodular contour. On series 1 image 13 there is a 4 cm nearly anechoic focus without gross vascularity color shown over this area. This area will be reassessed with second-look targeted ultrasound no intrahepatic bile duct dilatation. Apparently there is prominence of the IVC in close proximity with the liver on these images. No GALLBLADDER: . Abnormal appearing gallbladder wall thickening 7 mm common call stones and sludge. No positive Segovia sign elicited COMMON BILE DUCT: Measures 6 mm. No stones. No dilatation. PANCREAS: Limited evaluation portions visualized - echogenic RIGHT KIDNEY: Measures 11.7 x 3.8 x 5.0cm. Diffuse increased echogenicity No calculus or cyst seen. There is hydronephrosis - intrarenal and extrarenal pelviectasis most notable. Lesser degrees of caliectasis suggested. No renal mass seen LEFT KIDNEY: Measures 12.6 x 5.2 x 4.5cm. Diffuse increased echogenicity There is hydronephrosis present. A midpole cortical cyst - 1.2 cm around a diameter noted. No calculi or solid-appearing masses appreciated. SPLEEN: 14.6 cm no masses noted AORTA: Aorta not clearly seen. Proximal AP measurement 1.9 cm. IVC: Technologist has stated visible OTHER FINDINGS: Ascites left pleural effusion Reese catheter is in prostatic urethra - IMPRESSION: Hepatomegaly with cirrhosis suggested. Surrounding ascites. Gallstones: Sludge, gallbladder wall thickening. No positive ultrasound Segovia sign. Chronic cholecystitis with additional findings compatible with likely hypoalbuminemia in this patient with ascites and liver disease. Bilateral hydronephrosis as above. Diffuse increased renal cortical echogenicity compatible with medical renal disease Left midpole renal cortical benign-appearing cyst 1.2 cm. Reese catheter is inflated in prostatic urethra - and the bladder is distended. Repositioning recommended. Comments: Study marked for PA review . Concordant results (preliminary interpretation) provided by [employer].
--- NOTE | 2018-04-02 16:10 | CP.PCM.PN ---
Subjective - Date & Time of Evaluation Date of Evaluation: 04/02/18 Time of Evaluation: 16:05 - Subjective Subjective: INFECTIOUS DISEASE PROGRESS NOTES NALLELY LU [facility] 04/02/2018 CHART REVIEWED PT EXAMINED CASE DISCUSSED WITH STAFF 76 year old male with history of CLL, A fib, HTN, CHF, CAD s/p CABG and AICD who presented for evaluation of altered mental status and respiratory distress. Patient was recently started on Ibrutinib for CLL, has had recent hemoptysis. Has had no recent complaints of pain, however became progressively more weak and altered. Admitted to ICU for altered mental status, multifocal pneumonia, NSTEMI. Currently patient is sedated on Versed. Plan: Neuro: intubated Sedated, on Versed 1mg IV Q3 PRN Head CT without contrast 04/01 Multifocal small cortical lucencies without significant volume loss or surrounding edema. Possible subacute infarcts. Possible subacute right basal ganglia lacunar infarcts. Recommend pre and post gadolinium enhanced magnetic resonance imaging for further evaluation to rule out metastasis. 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 Chronic white matter ischemic change. Mild age-appropriate atrophy. Neurology Dr. Paz consulted, help appreciated. Pulmonary: Duonebs Q6 Solumedrol 40mg IV Q8 Telavancin, Pramaxin and Atovaquone as per ID recs CXR 04/02 s/p bronchoscopy: confluent diffuse airspace opacifications seen throughout the right lung and within the left mid lung zone. NG tube in stomach. ETT extending to mid thoracic trachea. Scattered nodular densities in both lungs. Cardiomegaly. L sided pacemaker. Degenerative changes in the spine and shoulders. CXR 04/02 revealed Possible small loculated left hydro pneumothorax. Follow-up advised. Left hydropneumothorax not seen on prior CT from 04/01, no further studies necessary at this time. Chest CT 04/01 Multifocal consolidation with vaguely masslike opacities in both upper lobes. Possible multifocal pneumonia. Followup to clearing to rule out underlying neoplasm. Small bilateral pleural effusion. Cardiomegaly. AICD. CABG. ET tube and NG tube. Dilated main pulmonary artery. Ascites. Mild splenomegaly. ABG 04/02 pH 7.40 pCO2 32 HCO3 21.4 pO2 70 Mycoplasma negative Legionella negative Procalcitonin 6.99 04/02: Bedside bronchoscopy revealed mucous plug, with bloody secretions Cardiovascular: EKG: Afib at 135, normal axis, T wave inversions in I, AVL, AVF, V5-6, no ST changes Trop 0.2140 --> 0.[address] Valerio consulted, help appreciated Hx of CAD with CABG and AICD in place Right IJ central line placed BP 109/51 On Phenylephrine 20mcg/min On Vasopressin 0.02units/min Albumin 12.5mg Q12 NS IVF @ 100cc/hr Tachycardic 130s initially, now 104 ECHO f/u Renal: BUN/Cr 76/1.7 Continue to monitor electrolytes, K repleted I&Os , +2477ml Reese in place Endo: maintain euglycemia GI PPX: Pepcid 20mg IV Abdomen US completed ordered, given patient's stated possible liver cirrhosis and unspecified kidney growth ID Dr. Lu consulted, help appreciated White count 23.7 Febrile to 101.3 HR 130s Tylenol 650mg PO Q6 PRN fever Telavancin, Pramaxin and Atovaquone as per ID recs Blood cultures, urine cultures and sputum cultures sent Heme Dr. Ibarra consulted, help appreciated Hx of CLL with hemolytic anemia Hb 8.4/Hct 25.2 Plts 53 Continue to monitor PPX: SCDs Code status: full code Social: Palliative care consult ordered. Case discussed with Dr. Rubi Objective - Vital Signs/Intake and Output Vital Signs (last 24 hours): Temp Pulse Resp BP Pulse Ox 101.3 F H 100 H 17 105/48 L 95 04/02/18 12:40 04/02/18 14:04 04/02/18 14:04 04/02/18 14:04 04/02/18 14:04 Intake and Output: 04/02/18 04/02/18 06:59 18:59 Intake Total 2450.7 1290.1 Output Total 1550 950 Balance 900.7 340.1 - Medications Medications: Current Medications Acetaminophen (Tylenol 325mg Tab) 650 mg PO Q6 PRN PRN Reason: Fever >100.4 F Last Admin: 04/02/18 12:40 Dose: 650 mg Albumin Human (Albumin Human 25% (12.5 Gm/50 Ml)) 12.5 gm IV Q12 JACK Last Admin: 04/02/18 09:19 Dose: 12.5 gm Atovaquone (Mepron) 750 mg PO BID JACK PRN Reason: Protocol Last Admin: 04/02/18 09:19 Dose: 750 mg Famotidine (Pepcid) 20 mg IVP Q24H [facility] Last Admin: 04/01/18 21:21 Dose: 20 mg Norepinephrine Bitartrate 4 mg (/ Sodium Chloride) 254 mls @ 15.24 mls/hr IV .[id number] PRN; Protocol; 4 MCG/MIN PRN Reason: TITRATE PER MD ORDER Last Titration: 04/02/18 00:05 Dose: 0 mcg/min, 0 mls/hr Vasopressin 40 units/ Sodium (Chloride) 40 mls @ 1.2 mls/hr IV .Q24H PRN; Protocol; 0.02 UNITS/MIN PRN Reason: TITRATE PER PROTOCOL Last Titration: 04/02/18 04:42 Dose: 0.03 units/min, 1.8 mls/hr Sodium Chloride (Sodium Chloride 0.9%) 1,000 mls @ 100 mls/hr IV .Q10H [facility] Last Admin: 04/02/18 15:12 Dose: 100 mls/hr Telavancin 700 mg/ Dextrose 100 mls @ 100 mls/hr IVPB Q24H JACK PRN Reason: Protocol Last Admin: 04/01/18 18:43 Dose: 100 mls/hr Imipenem/Cilastatin Sodium 500 (mg/ Sodium Chloride) 100 mls @ 100 mls/hr IVPB Q8H [facility] PRN Reason: Protocol Last Admin: 04/02/18 09:19 Dose: 100 mls/hr Phenylephrine HCl 30 mg/ (Sodium Chloride) 253 mls @ 10.12 mls/hr IV .Q24H PRN ; Protocol; 20 MCG/MIN PRN Reason: TITRATE PER MD ORDER Last Titration: 04/02/18 13:00 Dose: 20 mcg/min, 10.12 mls/hr Methylprednisolone (Solu-Medrol) 40 mg IVP Q12H [facility] Last Admin: 04/02/18 04:08 Dose: 40 mg Midazolam HCl (Versed Inj) 1 mg IVP Q3 PRN PRN Reason: Agitation Last Admin: 04/01/18 21:34 Dose: 1 mg - Labs Labs: 04/02/18 05:57 04/02/18 05:57 PT 18.5 SECONDS (9.7-12.2) H 04/01/18 10:09 INR 1.7 04/01/18 10:09 APTT 28 SECONDS (21-34) 04/01/18 10:09
[2018-04-02] MEDS: DEXTROSE 5% IVPB SCH (16:53)
[2018-04-02] MEDS: WATER IVPB SCH (16:53)
[2018-04-02] MEDS: TELAVANCIN HYDROCHLORIDE IVPB SCH (16:53)
--- NOTE | 2018-04-02 18:26 | CP.PCM.PN ---
Subjective - Date & Time of Evaluation Date of Evaluation: 04/02/18 Time of Evaluation: 11:15 - Subjective Subjective: clinically same Objective - Vital Signs/Intake and Output Vital Signs (last 24 hours): Temp Pulse Resp BP Pulse Ox 100.2 F H 111 H 18 129/21 L 96 04/02/18 16:00 04/02/18 17:00 04/02/18 17:00 04/02/18 16:15 04/02/18 17:00 Intake and Output: 04/02/18 04/02/18 06:59 18:59 Intake Total 2450.7 1686.0 Output Total 1550 950 Balance 900.7 736.0 - Medications Medications: Current Medications Acetaminophen (Tylenol 325mg Tab) 650 mg PO Q6 PRN PRN Reason: Fever >100.4 F Last Admin: 04/02/18 12:40 Dose: 650 mg Albumin Human (Albumin Human 25% (12.5 Gm/50 Ml)) 12.5 gm IV Q12 [facility] Last Admin: 04/02/18 09:19 Dose: 12.5 gm Atovaquone (Mepron) 750 mg PO BID JACK PRN Reason: Protocol Last Admin: 04/02/18 18:02 Dose: 750 mg Famotidine (Pepcid) 20 mg IVP Q24H [facility] Last Admin: 04/01/18 21:21 Dose: 20 mg Norepinephrine Bitartrate 4 mg (/ Sodium Chloride) 254 mls @ 15.24 mls/hr IV .[id number] PRN; Protocol; 4 MCG/MIN PRN Reason: TITRATE PER MD ORDER Last Titration: 04/02/18 00:05 Dose: 0 mcg/min, 0 mls/hr Vasopressin 40 units/ Sodium (Chloride) 40 mls @ 1.2 mls/hr IV .Q24H PRN; Protocol; 0.02 UNITS/MIN PRN Reason: TITRATE PER PROTOCOL Last Titration: 04/02/18 04:42 Dose: 0.03 units/min, 1.8 mls/hr Sodium Chloride (Sodium Chloride 0.9%) 1,000 mls @ 100 mls/hr IV .Q10H [facility] Last Admin: 04/02/18 15:12 Dose: 100 mls/hr Telavancin 700 mg/ Dextrose 100 mls @ 100 mls/hr IVPB Q24H JACK PRN Reason: Protocol Last Admin: 04/02/18 16:53 Dose: 100 mls/hr Imipenem/Cilastatin Sodium 500 (mg/ Sodium Chloride) 100 mls @ 100 mls/hr IVPB Q8H JACK PRN Reason: Protocol Last Admin: 04/02/18 18:02 Dose: 100 mls/hr Phenylephrine HCl 30 mg/ (Sodium Chloride) 253 mls @ 10.12 mls/hr IV .Q24H PRN ; Protocol; 20 MCG/MIN PRN Reason: TITRATE PER MD ORDER Last Titration: 04/02/18 16:00 Dose: 39.52 mcg/min, 20 mls/hr Methylprednisolone (Solu-Medrol) 40 mg IVP Q12H [facility]ACK Last Admin: 04/02/18 16:51 Dose: 40 mg Midazolam HCl (Versed Inj) 1 mg IVP Q3 PRN PRN Reason: Agitation Last Admin: 04/01/18 21:34 Dose: 1 mg - Labs Labs: 04/02/18 05:57 04/02/18 05:57 PT 18.5 SECONDS (9.7-12.2) H 04/01/18 10:09 INR 1.7 04/01/18 10:09 APTT 28 SECONDS (21-34) 04/01/18 10:09 - Constitutional Appears: Well - Head Exam Head Exam: ATRAUMATIC, NORMAL INSPECTION, NORMOCEPHALIC - Eye Exam Eye Exam: EOMI, Normal appearance, PERRL Pupil Exam: NORMAL ACCOMODATION, PERRL - ENT Exam ENT Exam: Mucous Membranes Moist, Normal Exam - Neck Exam Neck Exam: Full ROM, Normal Inspection. absent: Lymphadenopathy - Respiratory Exam Respiratory Exam: Decreased Breath Sounds - Cardiovascular Exam Cardiovascular Exam: REGULAR RHYTHM, +S1, +S2 - GI/Abdominal Exam GI & Abdominal Exam: Soft, Diminished Bowel Sounds - Rectal Exam Rectal Exam: Deferred
--- NOTE | 2018-04-02 19:24 | CON ---
Copied To: Jayy Ibarra MD Attending MD: Jayy Ibarra MD DATE: 04/02/2018 ONCOLOGY EVALUATION HISTORY OF PRESENT ILLNESS: This is a 77-year-old man, who just started recent treating about a month ago, and he has two conditions, one is a renal cell mass, this has not been explored nor biopsied and not being treated, and #2 is chronic lymphocytic leukemia, presenting as a hemolytic anemia. His retic count was 22%. His MCV was about 122 when he presented a few weeks ago. We put him on prednisone 40 mg a day, and he seems to respond to that, and then I put him on IMBRUVICA two tablets a day. He seems to be improving. I started cutting back on his prednisone, but what happen is, as I cut him down to the 20 mg, now he started becoming very very weak and also he started developing chills and fever. The blood counts on admission showed a white count of 22,000 with only about 35% lymphs. Those numbers used to be about 65,000 to 70,000 white cells with about 80% lymphs before the IMBRUVICA. His hemoglobin was 8.7 on admission, it went down to 7.5. We gave him a unit of packed cells and it went up to 8.4 as of yesterday. This morning, the MCV was 108, and the platelet count was about 65,000, so his hemolytic anemia worsened as we cut down on the steroids. His electrolytes showed a BUN of 79 and creatinine of 1.9. He was severely hypovolemic with the sugars in the 120 range, and the troponin is high, so at this point, we want to continue the IMBRUVICA, so if he can bring it in from the home once he is able to swallow, we will start him back on the IMBRUVICA. In the meantime, he is admitted for supportive care with antibiotics and sepsis therapy. It is unclear to me in terms of the whether he is back on the steroids, so I am going to order the Solu-Medrol 40 once a day. Jayy Ibarra MD
--- NOTE | 2018-04-02 21:44 | CP.PCM.PN ---
Subjective - Date & Time of Evaluation Date of Evaluation: 04/02/18 Time of Evaluation: 21:42 - Subjective Subjective: Patient is still on ventilator. Currently on vasopressin, phenolate printed. Status post bronchoscopy today. Thick bloody secretions still noted. FiO2 60%. X-ray showing dense infiltrative changes bilaterally ID is on board. Vital signs somewhat unstable. Chest bilateral wheezing. Atrial flutter fibrillation noted. Cultures are pending at this time. Labs reviewed Overall prognosis is guarded. Patient is critical condition. On IV antibiotic. Patient with the leukemia, status post a CAD CABG. Acute bilateral pneumonia. Continue the hydration. Antibiotic. Bronchodilator. Will follow-up the patient Objective - Vital Signs/Intake and Output Vital Signs (last 24 hours): Temp Pulse Resp BP Pulse Ox 100.2 F H 115 H 17 108/57 L 96 04/02/18 16:00 04/02/18 20:15 04/02/18 20:15 04/02/18 20:04 04/02/18 20:15 Intake and Output: 04/02/18 04/03/18 18:59 06:59 Intake Total 1907.8 121.8 Output Total 1300 Balance 607.8 121.8 - Medications Medications: Current Medications Acetaminophen (Tylenol 325mg Tab) 650 mg PO Q6 PRN PRN Reason: Fever >100.4 F Last Admin: 04/02/18 12:40 Dose: 650 mg Albumin Human (Albumin Human 25% (12.5 Gm/50 Ml)) 12.5 gm IV Q12 [facility] Last Admin: 04/02/18 09:19 Dose: 12.5 gm Atovaquone (Mepron) 750 mg PO BID [facility] PRN Reason: Protocol Last Admin: 04/02/18 18:02 Dose: 750 mg Famotidine (Pepcid) 20 mg IVP Q24H [facility] Last Admin: 04/01/18 21:21 Dose: 20 mg Vasopressin 40 units/ Sodium (Chloride) 40 mls @ 1.2 mls/hr IV .Q24H PRN; Protocol; 0.02 UNITS/MIN PRN Reason: TITRATE PER PROTOCOL Last Titration: 04/02/18 04:42 Dose: 0.03 units/min, 1.8 mls/hr Sodium Chloride (Sodium Chloride 0.9%) 1,000 mls @ 100 mls/hr IV .Q10H [facility] Last Admin: 04/02/18 21:16 Dose: Not Given Telavancin 700 mg/ Dextrose 100 mls @ 100 mls/hr IVPB Q24H [facility]ACK PRN Reason: Protocol Last Admin: 04/02/18 16:53 Dose: 100 mls/hr Imipenem/Cilastatin Sodium 500 (mg/ Sodium Chloride) 100 mls @ 100 mls/hr IVPB Q8H [facility] PRN Reason: Protocol Last Admin: 04/02/18 18:02 Dose: 100 mls/hr Phenylephrine HCl 30 mg/ (Sodium Chloride) 253 mls @ 10.12 mls/hr IV .Q24H PRN ; Protocol; 20 MCG/MIN PRN Reason: TITRATE PER MD ORDER Last Titration: 04/02/18 16:00 Dose: 39.52 mcg/min, 20 mls/hr Methylprednisolone (Solu-Medrol) 40 mg IVP Q12H [facility] Last Admin: 04/02/18 16:51 Dose: 40 mg Midazolam HCl (Versed Inj) 1 mg IVP Q3 PRN PRN Reason: Agitation Last Admin: 04/01/18 21:34 Dose: 1 mg - Labs Labs: 04/02/18 05:57 04/02/18 05:57 PT 18.5 SECONDS (9.7-12.2) H 04/01/18 10:09 INR 1.7 04/01/18 10:09 APTT 28 SECONDS (21-34) 04/01/18 10:09
[2018-04-02 23:41] LABS: ALB/GLOB RATIO 0.9 (1.0-2.1); ALBUMIN 2.7 g/dL (3.5-5.0); CALCIUM 8.3 mg/dl (8.6-10.4); URIC ACID 11.8 mg/dL (3.5-8.5)
[2018-04-02] MEDS ORDERED: Sodium Chloride 0.9% 500 ML IV ONE (23:44)
[2018-04-02 23:48] LABS: HEMOGLOBIN 8.5 g/dL (12.0-18.0); MEAN CELL VOLUME 106.4 fL (80.0-94.0); MEAN CORPUSCULAR HEMOGLOBIN 35.2 pg (27.0-31.0); MEAN CORPUSCULAR HGB CONC 33.1 g/dL (33.0-37.0); MEAN PLATELET VOLUME 10.7 fL (7.2-11.7); PLATELET COUNT 59 K/uL (130-400); RED CELL DISTRIBUTION WIDTH 19.3 % (11.5-14.5); WHITE BLOOD COUNT 27.9 K/uL (4.8-10.8)
[2018-04-03] MEDS: Phenylephrine 30 MG in Sodium Chloride 0.9% 250 ML IV PRN ×3 (00:10→09:36)
[2018-04-03] MEDS: Sodium Chloride 0.9% 1,000 ML IV SCH ×2 (00:15→07:30)
[2018-04-03] MEDS: Imipenem/Cilastatin 500 MG in Sodium Chloride 100 ML IVPB SCH ×2 (02:47→09:15)
[2018-04-03] MEDS: MethylPREDNISolone 40 mg Vial IVP SCH (03:26)
[2018-04-03 04:48] LABS: BANDS 3 % (0-2); LYMPHOCYTE 22 % (20-40); MONOCYTE 1 % (0-10); NEUTROPHIL 74 % (50-75); PLATELET ESTIMATE DECREASED (NORMAL); POLYCHROMIC MODERATE; TOTAL CELLS COUNTED 100
[2018-04-03 04:49] LABS: ANISOCYTOSIS MODERATE
[2018-04-03 04:51] LABS: SPHEROCYTES SLIGHT
[2018-04-03 04:52] LABS: LARGE PLATELETS PRESENT
[2018-04-03 04:53] LABS: MICROCYTOSIS SLIGHT
[2018-04-03 05:38] LABS: ABG ALLEN TEST POS; ARTERIAL BLOOD GAS HCO3 19.2 mmol/L (21-28); ARTERIAL BLOOD GAS O2 SAT 95.1 % (95-98); ARTERIAL BLOOD GAS PCO2 28 mm/Hg (35-45); ARTERIAL BLOOD GAS PH 7.38 (7.35-7.45); ARTERIAL BLOOD GAS PO2 65 mm/Hg (80-100); ARTERIAL BLOOD GAS TCO2 17.5 mmol/L (22-28)
[2018-04-03 06:30] LABS: BASO # 0.1 K/uL (0.0-0.2); BASO % 0.2 % (0.0-2.0); HEMOGLOBIN 9.4 g/dL (12.0-18.0); LYMPH # 12.1 K/uL (1.0-4.3); LYMPH % 28.6 % (20.0-40.0); MEAN CELL VOLUME 108.4 fL (80.0-94.0); MEAN CORPUSCULAR HEMOGLOBIN 34.7 pg (27.0-31.0); MEAN PLATELET VOLUME 11.2 fL (7.2-11.7); MONO # 0.4 K/uL (0.0-0.8); MONO % 0.9 % (0.0-10.0); NEUT # 29.7 K/uL (1.8-7.0); NEUT % 70.3 % (50.0-75.0); NRBC % 0.2 % (0.0-2.0); RBC 2.7 Mil/uL (4.40-5.90); RED CELL DISTRIBUTION WIDTH 19.8 % (11.5-14.5)
[2018-04-03 06:32] LABS: ALB/GLOB RATIO 0.9 (1.0-2.1); ALBUMIN 2.7 g/dL (3.5-5.0); CALCIUM 8.3 mg/dl (8.6-10.4)
[2018-04-03 06:44] LABS: WHITE BLOOD COUNT 42.2 K/uL (4.8-10.8)
--- NOTE | 2018-04-03 07:26 | CP.PCM.CON ---
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 MAINTAIN MAP AROUND 100 EEG R/O NON CONVULSIVE SEIZURES BLANCHE R/O SBE ANTIBIOTICS PER ID MULTIORGAN FAILURE OVER ALL PROGNOSIS BAD DISCUSSED WITH HIS SUGGEST DNR Past Patient History - Past Medical History & Family History Past Medical History?: Yes - Past Social History Smoking Status: Never Smoked - CARDIAC Hx Atrial Fibrillation: Yes Hx Congestive Heart Failure: Yes Hx Hypercholesterolemia: Yes Hx Hypertension: Yes Hx Mitral Valve Prolapse: Yes Hx Pacemaker: Yes - PULMONARY Hx Respiratory Disorders: No - NEUROLOGICAL Hx Neurological Disorder: No - HEENT Hx HEENT Problems: No - RENAL Hx Chronic Kidney Disease: No - ENDOCRINE/METABOLIC Hx Endocrine Disorders: No - HEMATOLOGICAL/ONCOLOGICAL Hx Blood Disorders: No Hx Leukemia: Yes - INTEGUMENTARY Hx Dermatological Problems: No - MUSCULOSKELETAL/RHEUMATOLOGICAL Hx Falls: No - GASTROINTESTINAL Hx Gastrointestinal Disorders: No - GENITOURINARY/GYNECOLOGICAL Hx Genitourinary Disorders: No - PSYCHIATRIC Hx Substance Use: No - SURGICAL HISTORY Hx Coronary Artery Bypass Graft: Yes - ANESTHESIA Hx Anesthesia: Yes Hx Anesthesia Reactions: No Hx Malignant Hyperthermia: No Meds Allergies/Adverse Reactions: Allergies Allergy/AdvReac Type Severity Reaction Status Date / Time No Known Allergies Allergy Verified 04/01/18 09:48 - Medications Medications: Current Medications Acetaminophen (Tylenol 325mg Tab) 650 mg PO Q6 PRN PRN Reason: Fever >100.4 F Last Admin: 04/03/18 04:09 Dose: 650 mg Albumin Human (Albumin Human 25% (12.5 Gm/50 Ml)) 12.5 gm IV Q12 [facility] Last Admin: 04/02/18 22:10 Dose: 12.5 gm Atovaquone (Mepron) 750 mg PO BID JACK PRN Reason: Protocol Last Admin: 04/02/18 18:02 Dose: 750 mg Famotidine (Pepcid) 20 mg IVP Q24H [facility] Last Admin: 04/02/18 22:09 Dose: 20 mg Vasopressin 40 units/ Sodium (Chloride) 40 mls @ 1.2 mls/hr IV .Q24H PRN; Protocol; 0.02 UNITS/MIN PRN Reason: TITRATE PER PROTOCOL Last Titration: 04/02/18 22:45 Dose: 0.04 units/min, 2.4 mls/hr Sodium Chloride (Sodium Chloride 0.9%) 1,000 mls @ 100 mls/hr IV .Q10H [facility] Last Admin: 04/03/18 00:15 Dose: 100 mls/hr Telavancin 700 mg/ Dextrose 100 mls @ 100 mls/hr IVPB Q24H [facility] PRN Reason: Protocol Last Admin: 04/02/18 16:53 Dose: 100 mls/hr Imipenem/Cilastatin Sodium 500 (mg/ Sodium Chloride) 100 mls @ 100 mls/hr IVPB Q8H [facility]ACK PRN Reason: Protocol Last Admin: 04/03/18 02:47 Dose: 100 mls/hr Phenylephrine HCl 30 mg/ (Sodium Chloride) 253 mls @ 10.12 mls/hr IV .Q24H PRN ; Protocol; 20 MCG/MIN PRN Reason: TITRATE PER MD ORDER Last Admin: 04/03/18 03:26 Dose: 180 mcg/min, 91.08 mls/hr Norepinephrine Bitartrate 4 mg (/ Sodium Chloride) 254 mls @ 15.24 mls/hr IV .[id number] PRN; Protocol; 4 MCG/MIN PRN Reason: TITRATE PER MD ORDER Last Titration: 04/03/18 06:00 Dose: 6 mcg/min, 22.86 mls/hr Methylprednisolone (Solu-Medrol) 40 mg IVP Q12H [facility] Last Admin: 04/03/18 03:26 Dose: 40 mg Midazolam HCl (Versed Inj) 1 mg IVP Q3 PRN PRN Reason: Agitation Last Admin: 04/01/18 21:34 Dose: 1 mg Results - Vital Signs Recent Vital Signs: Last Vital Signs Temp 100.2 F H 04/03/18 05:09 Pulse 135 H 04/03/18 07:14 Resp 23 04/03/18 07:14 BP 107/61 04/03/18 07:15 Pulse Ox 96 04/03/18 07:14 - Labs Result Diagrams: 04/03/18 06:13 04/03/18 06:13 Labs: Laboratory Results - last 24 hr 04/02/18 04/02/18 04/02/18 05:57 10:20 11:44 WBC 23.7 H RBC 2.34 L Hgb 8.4 L Hct 25.2 L MCV 107.4 H MCH 35.7 H MCHC 33.2 RDW 19.6 H Plt Count 53 L MPV 11.0 Neut % (Auto) 71.2 Lymph % (Auto) 27.4 [place] % (Auto) 1.2 Eos % (Auto) 0.0 Baso % (Auto) 0.2 Neut # (Auto) 16.9 H Lymph # (Auto) 6.5 H [place] # (Auto) 0.3 Eos # (Auto) 0.0 Baso # (Auto) 0.0 Neutrophils % (Manual) Band Neutrophils % Lymphocytes % (Manual) Monocytes % (Manual) Differential Comment Platelet Estimate Large Platelets Polychromasia Anisocytosis (manual) Microcytosis (manual) Macrocytosis (manual) Spherocytes Puncture Site pCO2 pO2 HCO3 ABG pH ABG Total CO2 ABG O2 Saturation ABG Base Excess Ricky Test ABG Potassium A-a O2 Difference Respiratory Index Glucose Lactate Vent Mode Mechanical Rate FiO2 Tidal Volume PEEP Sodium Potassium Chloride Carbon Dioxide Anion Gap BUN Creatinine Est GFR ( Amer) Est GFR (Non-Af Amer) POC Glucose (mg/dL) 158 H Random Glucose Uric Acid Calcium Phosphorus Magnesium Total Bilirubin AST ALT Alkaline Phosphatase Total Protein Albumin Globulin Albumin/Globulin Ratio Procalcitonin 6.99 H Arterial Blood Potassium Ur L.pneumophila Ag Negative Mycoplasma pneumon IgM Negative 04/02/18 04/02/18 04/02/18 17:25 23:23 23:35 WBC RBC Hgb Hct MCV MCH MCHC RDW Plt Count MPV Neut % (Auto) Lymph % (Auto) [place] % (Auto) Eos % (Auto) Baso % (Auto) Neut # (Auto) Lymph # (Auto) [place] # (Auto) Eos # (Auto) Baso # (Auto) Neutrophils % (Manual) Band Neutrophils % Lymphocytes % (Manual) Monocytes % (Manual) Differential Comment Platelet Estimate Large Platelets Polychromasia Anisocytosis (manual) Microcytosis (manual) Macrocytosis (manual) Spherocytes Puncture Site pCO2 pO2 HCO3 ABG pH ABG Total CO2 ABG O2 Saturation ABG Base Excess Ricky Test ABG Potassium A-a O2 Difference Respiratory Index Glucose Lactate Vent Mode Mechanical Rate FiO2 Tidal Volume PEEP Sodium 148 Potassium 3.5 L Chloride 114 H Carbon Dioxide 23 Anion Gap 14 BUN 77 H Creatinine 1.7 H Est GFR ( Amer) 48 Est GFR (Non-Af Amer) 39 POC Glucose (mg/dL) 164 H 167 H Random Glucose 160 H Uric Acid 11.8 H Calcium 8.3 L Phosphorus 5.1 H Magnesium 2.4 H Total Bilirubin 4.3 H AST 24 ALT 48 Alkaline Phosphatase 45 Total Protein 5.5 L Albumin 2.7 L Globulin 2.8 Albumin/Globulin Ratio 0.9 L Procalcitonin Arterial Blood Potassium Ur L.pneumophila Ag Mycoplasma pneumon IgM 04/02/18 04/03/18 04/03/18 23:44 05:27 06:13 WBC 27.9 H 42.2 H* D RBC 2.40 L 2.70 L Hgb 8.5 L 9.4 L Hct 25.5 L 29.2 L MCV 106.4 H 108.4 H D MCH 35.2 H 34.7 H MCHC 33.1 32.0 L RDW 19.3 H 19.8 H Plt Count 59 L 93 L D MPV 10.7 11.2 Neut % (Auto) 70.3 Lymph % (Auto) 28.6 [place] % (Auto) 0.9 Eos % (Auto) 0.0 Baso % (Auto) 0.2 Neut # (Auto) 29.7 H Lymph # (Auto) 12.1 H [place] # (Auto) 0.4 Eos # (Auto) 0.0 Baso # (Auto) 0.1 Neutrophils % (Manual) 74 Band Neutrophils % 3 H Lymphocytes % (Manual) 22 Monocytes % (Manual) 1 Differential Comment Platelet Estimate Decreased L Large Platelets Present Polychromasia Moderate Anisocytosis (manual) Moderate Microcytosis (manual) Slight Macrocytosis (manual) Moderate Spherocytes Slight Puncture Site Rr pCO2 28 L pO2 65 L HCO3 19.2 L ABG pH 7.38 ABG Total CO2 17.5 L ABG O2 Saturation 95.1 ABG Base Excess -7.1 L Ricky Test Pos ABG Potassium 3.7 A-a O2 Difference 470.0 Respiratory Index 7.2 Glucose 137 H Lactate 3.4 H Vent Mode Prvc Mechanical Rate 18 FiO2 80.0 Tidal Volume 500 PEEP 5 Sodium 146.0 Potassium Chloride 117.0 H Carbon Dioxide Anion Gap BUN Creatinine Est GFR ( Amer) Est GFR (Non-Af Amer) POC Glucose (mg/dL) Random Glucose Uric Acid Calcium Phosphorus Magnesium Total Bilirubin AST ALT Alkaline Phosphatase Total Protein Albumin Globulin Albumin/Globulin Ratio Procalcitonin Arterial Blood Potassium 3.7 Ur L.pneumophila Ag Mycoplasma pneumon IgM 04/03/18 06:13 WBC RBC Hgb Hct MCV MCH MCHC RDW Plt Count MPV Neut % (Auto) Lymph % (Auto) [place] % (Auto) Eos % (Auto) Baso % (Auto) Neut # (Auto) Lymph # (Auto) [place] # (Auto) Eos # (Auto) Baso # (Auto) Neutrophils % (Manual) Band Neutrophils % Lymphocytes % (Manual) Monocytes % (Manual) Differential Comment Platelet Estimate Large Platelets Polychromasia Anisocytosis (manual) Microcytosis (manual) Macrocytosis (manual) Spherocytes Puncture Site pCO2 pO2 HCO3 ABG pH ABG Total CO2 ABG O2 Saturation ABG Base Excess Ricky Test ABG Potassium A-a O2 Difference Respiratory Index Glucose Lactate Vent Mode Mechanical Rate FiO2 Tidal Volume PEEP Sodium 149 H Potassium 4.0 Chloride 115 H Carbon Dioxide 18 L Anion Gap 20 BUN 80 H Creatinine 1.7 H Est GFR ( Amer) 48 Est GFR (Non-Af Amer) 39 POC Glucose (mg/dL) Random Glucose 130 H Uric Acid Calcium 8.3 L Phosphorus 5.9 H Magnesium 2.5 H Total Bilirubin 5.6 H AST 80 H D ALT 63 Alkaline Phosphatase 58 Total Protein 5.7 L Albumin 2.7 L Globulin 3.0 Albumin/Globulin Ratio 0.9 L Procalcitonin Arterial Blood Potassium Ur L.pneumophila Ag Mycoplasma pneumon IgM
--- NOTE | 2018-04-03 07:50 | PROCN ---
Copied To: Anthony Rubi MD Attending MD: Anthony Rubi MD PROCEDURE DATE: 04/02/2018 PROCEDURE: Fiberoptic bronchoscopy with bronchoalveolar lavage. PREOPERATIVE DIAGNOSIS: Bilateral pneumonia. DESCRIPTION OF PROCEDURE: Fiberoptic bronchoscopy procedure was done after obtaining consent from the family explaining risks and benefits, understood. Procedure was done. The patient being intubated and sedated. The bronchoscope was passed through the endotracheal tube into the trachea . Blood tinged secretions noted, which were suctioned out. Further bronchospasm in the right side, the right vein, the right upper, the right lower lobe, blood tinged thick secretions noted which were suctioned out. The bronchoscope was pulled back and passed through the left side. The left upper, also same, taken out of blood tinged secretions. Bronchioalveolar lavage done from left lower lobe. The patient tolerated the procedure well. Anthony Rubi MD
[2018-04-03 08:15] VITALS: TEMP 100.7
--- NOTE | 2018-04-03 08:54 | RAD ---
Date of service: 04/03/2018 HISTORY: multifocal pneumonia COMPARISON: Portable chest 04/02/2018 12:17 p.m.. . FINDINGS: LUNGS: Endotracheal tube, right central venous line, AICD/ pacemaker and nasogastric tube are unchanged in position. Increased opacity seen at the right hemithorax including the right upper and lower lobe regions suggestive of worsening infiltrate. Pacemaker generator obscures the mid left lung zone. PLEURA: No significant pleural effusion identified, no pneumothorax apparent. CARDIOVASCULAR: Cardiomegaly is stable. Underlying pulmonary vascular congestion is not excluded although no prominent interstitial markings are appreciate to favor CHF. OSSEOUS STRUCTURES: No significant abnormalities. VISUALIZED UPPER ABDOMEN: Normal. OTHER FINDINGS: None. IMPRESSION: Interval worsening of right-sided infiltrate which now all begins to dominates the right hemithorax. Limited left perihilar infiltrate is not excluded but is difficult to evaluate due to overlying pacemaker generator. Stable cardiomegaly. Underlying pulmonary vascular congestion not completely excluded.
[2018-04-03] MEDS: Atovaquone 750 mg/5 ml Susp UD PO SCH (09:16)
--- NOTE | 2018-04-03 09:16 | CP.PCM.PN ---
<Shilo Glasgow - Last Filed: 04/03/18 13:54> Subjective - Date & Time of Evaluation Date of Evaluation: 04/03/18 Time of Evaluation: 09:11 - Subjective Subjective: PGY 3 Cardiology Progress Note- Dr. Valerio's service Patient remains intubated and sedated. present bedside. reiterated the events which led to patient's current presentation. She states that he was entirely okay one week ago. She states that he had a fever over the weekend and became increasingly lethargic following that. She states that he did not return to his baseline since. Patient with noted fevers overnight. Patient not able to respond to an ROS at this time. Objective - Vital Signs/Intake and Output Vital Signs (last 24 hours): Temp Pulse Resp BP Pulse Ox 100.7 F H 159 H 22 105/55 L 95 04/03/18 08:00 04/03/18 08:00 04/03/18 08:00 04/03/18 08:00 04/03/18 08:00 Intake and Output: 04/03/18 04/03/18 06:59 18:59 Intake Total 2559.6 371.7 Output Total 650 30 Balance 1909.6 341.7 - Medications Medications: Current Medications Acetaminophen (Tylenol 325mg Tab) 650 mg PO Q6 PRN PRN Reason: Fever >100.4 F Last Admin: 04/03/18 04:09 Dose: 650 mg Albumin Human (Albumin Human 25% (12.5 Gm/50 Ml)) 12.5 gm IV Q12 [facility] Last Admin: 04/02/18 22:10 Dose: 12.5 gm Atovaquone (Mepron) 750 mg PO BID JACK PRN Reason: Protocol Last Admin: 04/02/18 18:02 Dose: 750 mg Famotidine (Pepcid) 20 mg IVP Q24H [facility] Last Admin: 04/02/18 22:09 Dose: 20 mg Vasopressin 40 units/ Sodium (Chloride) 40 mls @ 1.2 mls/hr IV .Q24H PRN; Protocol; 0.02 UNITS/MIN PRN Reason: TITRATE PER PROTOCOL Last Titration: 04/02/18 22:45 Dose: 0.04 units/min, 2.4 mls/hr Sodium Chloride (Sodium Chloride 0.9%) 1,000 mls @ 100 mls/hr IV .Q10H [facility] Last Admin: 04/03/18 07:30 Dose: Not Given Telavancin 700 mg/ Dextrose 100 mls @ 100 mls/hr IVPB Q24H [facility] PRN Reason: Protocol Last Admin: 04/02/18 16:53 Dose: 100 mls/hr Imipenem/Cilastatin Sodium 500 (mg/ Sodium Chloride) 100 mls @ 100 mls/hr IVPB Q8H [facility] PRN Reason: Protocol Last Admin: 04/03/18 09:15 Dose: 100 mls/hr Phenylephrine HCl 30 mg/ (Sodium Chloride) 253 mls @ 10.12 mls/hr IV .Q24H PRN ; Protocol; 20 MCG/MIN PRN Reason: TITRATE PER MD ORDER Last Admin: 04/03/18 03:26 Dose: 180 mcg/min, 91.08 mls/hr Norepinephrine Bitartrate 4 mg (/ Sodium Chloride) 254 mls @ 15.24 mls/hr IV .[id number] PRN; Protocol; 4 MCG/MIN PRN Reason: TITRATE PER MD ORDER Last Titration: 04/03/18 06:00 Dose: 6 mcg/min, 22.86 mls/hr Methylprednisolone (Solu-Medrol) 40 mg IVP Q12H [facility] Last Admin: 04/03/18 03:26 Dose: 40 mg Midazolam HCl (Versed Inj) 1 mg IVP Q3 PRN PRN Reason: Agitation Last Admin: 04/01/18 21:34 Dose: 1 mg - Labs Labs: 04/03/18 06:13 04/03/18 06:13 PT 18.5 SECONDS (9.7-12.2) H 04/01/18 10:09 INR 1.7 04/01/18 10:09 APTT 28 SECONDS (21-34) 04/01/18 10:09 - Constitutional Appears: Chronically Ill - Head Exam Head Exam: ATRAUMATIC, NORMAL INSPECTION - Eye Exam Eye Exam: Scleral icterus - ENT Exam ENT Exam: Mucous Membranes Moist - Neck Exam Neck Exam: Full ROM - Respiratory Exam Respiratory Exam: NORMAL BREATHING PATTERN (on ventilatory support.) - Cardiovascular Exam Cardiovascular Exam: Tachycardia, Irregular Rhythm, +S1, +S2 - GI/Abdominal Exam GI & Abdominal Exam: Soft, Normal Bowel Sounds - Extremities Exam Extremities Exam: Normal Capillary Refill, Pedal Edema (2+ pitting) - Neurological Exam Neurological Exam: Altered - Psychiatric Exam Psychiatric exam: Flat Affect - Skin Skin Exam: Warm Additional comments: jaundiced Assessment and Plan (1) Sepsis Status: Acute (2) Atrial fibrillation Status: Chronic (3) History of coronary artery disease Status: Chronic (4) CHF (congestive heart failure) Status: Chronic (5) HTN (hypertension) Status: Chronic (6) Prophylactic measure Status: Acute - Assessment and Plan (Free Text) Assessment: Assessment and Plan Sepsis Assessment & Plan: Leukocytosis noted- worsening Poor prognosis Hypotensive and Tachycardic- on pressor therapy Currently on Imipenem, Telavancin and Atovaquone at this time NS @ 100 mls per hour noted. ID and Critical care monitoring Status: Acute Atrial fibrillation Assessment & Plan: EKG-atrial fibrillation noted. Continue to monitor Hypodensities noted on Head CT imaging from 04/02-suggestive of possible infarct in region of basal ganglia. Neuro (Dr. Paz) on the case Status: Chronic History of coronary artery disease Assessment & Plan: Patient has had CABG before as well as AICD placement Will benefit from ASA/Plavix therapy however so patient has had recent episodes of hemoptysis- Will hold at this time. Monitor Status: Chronic CHF (congestive heart failure) Assessment & Plan: BNP 9300 F/U Echo report Status: Chronic HTN (hypertension) Assessment & Plan: Hypotensive on pressor support Monitor Status: Chronic Prophylactic measure Assessment & Plan: Pepcid 20 mg IV Q24 [facility] Chemical anticoagulation held at this time. due to episodes of hemoptysis Status: Acute <Jeffery Valerio - Last Filed: 04/04/18 07:35> Objective - Vital Signs/Intake and Output Vital Signs (last 24 hours): Temp Pulse Resp BP Pulse Ox 100.7 F H 44 L 0 L 56/25 L 88 L 04/03/18 08:00 04/03/18 10:15 04/03/18 10:15 04/03/18 09:48 04/03/18 09:43 - Labs Labs: 04/03/18 06:13 04/03/18 06:13 PT 18.5 SECONDS (9.7-12.2) H 04/01/18 10:09 INR 1.7 04/01/18 10:09 APTT 28 SECONDS (21-34) 04/01/18 10:09 Assessment and Plan - Assessment and Plan (Free Text) Assessment: Patient seen and evaluated personally by me Plan of care d/w the medical assistant and as documented Grave prognosis. severe sepsis, shock and multi organ failure
[2018-04-03 09:38] VITALS: O2SAT 88
[2018-04-03 10:25] VITALS: BP 56/25; PULSE 44; RESP 0
--- NOTE | 2018-04-03 10:27 | CP.PCM.PRO ---
<Padmini Mccarthy - Last Filed: 04/03/18 12:31> Pronouncement of Note - Clinical Findings Physical Exam: No Response Verbal/Painful Stimuli, Absent Peripheral Pulses{ Carotid & Femoral}, Absent Heart & Breath Sounds, No Pupillary Light Reflex, No Corneal Reflex, Pupils Fixed & Dilated, Absence of Vital Signs - Pronouncement Time Time of Pronouncement of : 10:12 Additional Comments: Patient was seen and examined at bedside early this morning. Patient was intubated and sedated and on [address] Palomares and I spoke to patient's Mariah Painting who stated that she would like to change status to DNR. Patient passed at 1012am. - Notifications Pronouncement Notifications: Family Notified Spinning Frame [employer]er Notified: No - Autopsy Autopsy Requested: Haydee - Berenice Certificate [place]ED[place] Number: [id number] <Raf Palomares - Last Filed: 04/03/18 13:17> Attending/Attestation - Attestation I have personally seen and examined this patient.: Yes I have fully participated in the care of the patient.: Yes I have reviewed all pertinent clinical information: Yes Notes (Text): 04/03/18 13:15 Patient was in septic shock on 3 pressors, but not responding. He became progressively worse, discussed DNR with his , whom agreed to this. He subsequently while still on full life support. Pronounced at 1012 am. at bedside, PMD - Emmy Hoffman notified. 04/03/18 13:17
--- NOTE | 2018-04-03 10:47 | CT ---
Date of service: 04/02/2018 PROCEDURE: CT HEAD WITHOUT CONTRAST. HISTORY: Neuro changes COMPARISON: CT head dated 04/01/2018 TECHNIQUE: Axial computed tomography images were obtained through the head/brain without intravenous contrast. Radiation dose: Total exam DLP = 1012.4 mGy-cm. This CT exam was performed using one or more of the following dose reduction techniques: Automated exposure control, adjustment of the mA and/or kV according to patient size, and/or use of iterative reconstruction technique. FINDINGS: HEMORRHAGE: No intracranial hemorrhage. BRAIN: No mass effect or edema. Atrophy. Chronic microvascular ischemic changes. Stable appearance of multifocal vague parenchymal hypodensities without surrounding edema. VENTRICLES: Unremarkable. No hydrocephalus. CALVARIUM: Unremarkable. PARANASAL SINUSES: Unremarkable as visualized. No significant inflammatory changes. MASTOID AIR CELLS: Unremarkable as visualized. No inflammatory changes. OTHER FINDINGS: None. IMPRESSION: No acute intracranial pathology. Age related changes. Stable appearance of multifocal vague parenchymal hypodensities without surrounding edema. Contrast-enhanced MRI of the brain is again recommended for further evaluation. No significant interval change.
--- NOTE | 2018-04-03 14:30 | CARD ---
APPROVED REPORT Date of service: 04/01/2018 EKG Measurement Heart [id number] <Conclusion> Atrial fibrillation with rapid ventricular response Inferior infarct, age undetermined Abnormal ECG
--- NOTE | 2018-04-03 19:15 | CON ---
Copied To: Walt Paz MD Attending MD: Wlat Paz MD DATE: 04/03/2018 REASON FOR THE CONSULTATION: Abnormal CAT scan and worsening neuro status. CHIEF COMPLAINT: The patient was brought into [facility] with a history of unresponsiveness at home and fever. From neurological point of view, I was called into evaluate him to his abnormal CAT scan finding and worsening of his neuro status. HISTORY OF PRESENT ILLNESS: Mr. Momo Painting is a 77-year-old right-handed male, usual state of health until Sunday, found him on Sunday with worsening neuro status, unresponsiveness, inability to ambulate and nonresponsive on Sunday. Immediately, EMS was called in and he was transferred to [facility] for further management. No history of fall. No history of trauma. No history of involuntary movements been observed or witnessed by his while he was in the home. In the hospital, the patient was found to have worsening his pupillary reflex and absent gag reflex. PAST MEDICAL HISTORY: CLL with hemolytic anemia, history of atrial fibrillation, hypertension, dyslipidemia, coronary artery disease, status post CABG, history of cirrhosis. PERSONAL HISTORY: No history of smoking or alcohol use. ALLERGIES: NO HISTORY OF ALLERGY. REVIEW OF SYSTEMS: Being reviewed. From neuro, worsening neuro status manifesting as coma MEDICATIONS: Imipenem, Mepron, norepinephrine, Pepcid, phenylephrine, methylprednisolone, telavancin, Tylenol, Versed p.r.n. PHYSICAL EXAMINATION: VITAL SIGNS: Blood pressure 107/61, mean arterial pressure of 69, respiratory rate 23 with labored breathing on vent. Pulse rate 147. NECK: Supple. No meningismus. EXTREMITIES: Edematous. Both legs were externally rotated. HEART: Sounds ejection systolic murmur with tachycardia. NEURO STATUS: The patient was examined in the presence of his . The patient is unarousable verbally as well as noxious stimuli. Eyes are closed. Pinpoint pupil, corneal reflex is sluggish on both sides. No gag on manipulating endotracheal tube. No oculocephalic reflex. All four extremities are flaccid. Deep tendon reflexes, right biceps 2+, right brachialis 1+, triceps absent, left side absent. Both knees are absent. Both ankles are absent. Plantars are upgoing on his left side, right side was mute. Sensory examination not respond to pain. Coordination, gait is deferred at this time. WORKUP: CAT scan x2 being reviewed. He has had multiple ischemic process periventricular as well as thalamic area. No obvious space-occupying lesion is noted. Global atrophy also noted. Further evaluation of lesion, the patient should need MRI of the brain with gadolinium to establish lesions. BLOOD WORKUP: WBC is 42.2, hemoglobin 9.4, hematocrit 29.2, platelets 93. Arterial gas; pH is 7.38, pO2 of 65, pCO2 of 28, bicarbonate 17.5 with oxygen saturation of 95.1. Sodium 149, potassium 4, chloride 115, bicarbonate 18, BUN 80, creatinine 1.7. Liver functions are abnormally high. Procalcitonin 6.99. CONCLUSION: Mr. Momo Painting has been presenting with global cerebral dysfunction with patchy brainstem dysfunction, all related to hypoperfusion syndrome due to his cardiac as well as septic shock. The patient also suffering from chronic lymphocytic leukemia with a probable immune compromised stage with possible infectious source in the central nervous system cannot be ruled out at this time. The patient presenting from neuro point of view, nonconvulsive status, which should be ruled out. RECOMMENDATION: 1. Keep the mean arterial pressure around 100. Continue the pressor support. 2. Definitely need transesophageal echocardiogram to rule out subacute bacterial endocarditis. 3. EEG to rule out any paroxysmal activities. He has history of seizures. No other medical intervention is needed from my end. The patient's condition been extensively discussed with his . She is aware of his critical illness. A DNR status should be addressed. The patient will be followed closely with you. Walt Paz MD BRIANDA
--- NOTE | 2018-04-04 06:51 | PN ---
Copied To: Jayy Ibarra MD Attending MD: Jayy Ibarra MD PROCEDURE DATE: 04/03/2018 PHYSICAL EXAMINATION: The patient is intubated. The patient is on pressors. The patient is not really responding. The is outside the room. I spoke to her at length. She is aware that he can even today. She tells me that I saw him last Sunday about ten days ago, and at that time he was doing very well. He was taking his medications. We loaded his prednisone to 20 mg once a day from 40. He was on the IMBRUVICA for about two weeks. He was feeling well. He was driving here to work. He drove to [employer]. He was feeling well until the weekend when he started developing a cough and on Sunday, when he came to the emergency room, he was very intubated immediately. At this point, he is really not responding. His chest x-rays shows diffuse infiltrates throughout. His hemoglobin is 9.4 with a white count of 42, platelet count of 93. His BUN is 80, creatinine of 1.7 with uric acid elevated about 11. I spoke with him as we could try give him one unit of packed cells to see if we can increase his blood pressure and increase his hemoglobin at time, but looks like he and the continues to keep her damon outside, but she is aware that he is possibly going to today. Jayy Ibarra MD
--- NOTE | 2018-04-04 11:25 | CARD ---
APPROVED REPORT Date of service: 04/01/2018 EXAM: Two-dimensional and M-mode echocardiogram with Doppler and color Doppler. Other Information Quality : TDSRhythm : INDICATION Atrial Fibrillation Infection:Rule out subacute bacterial endocarditis Congestive Heart Failure 2D DIMENSIONS IVSd0.8 (0.7-1.1cm)LVDd5.5 (3.9-5.9cm) PWd0.8 (0.7-1.1cm)LVDs4.5 (2.5-4.0cm) FS (%) 19.1 %LVEF (%)30.0 (>50%) M-Mode DIMENSIONS Left Atrium (MM)4.64 (2.5-4.0cm)IVSd0.79 (0.7-1.1cm) Aortic Root4.02 (2.2-3.7cm)LVDd5.56 (4.0-5.6cm) Aortic Cusp Exc.2.43 (1.5-2.0cm)PWd1.00 (0.7-1.1cm) FS (%) 15 %LVDs4.71 (2.0-3.8cm) TAPSE13.60 cmLVEF (%)32 (>50%) Aortic Valve AI P 1/2 [id number] Mitral Valve MV E Mowrdhsy169.6cm/sMV E Peak Gr.15mmHgMV E Mean Gr.6mmHg E/A ratio0.0PISA1.21 cm TDI E/Lateral E'0.0E/Medial E'0.0 Tricuspid Valve TR Peak [id number]/sTR Peak Gr.[id number] LEFT VENTRICLE The Left Ventricle is borderline dilated. There is normal left ventricular wall thickness. The systolic function is severely impaired. There is global hypokinesis of the left ventricle. RIGHT VENTRICLE The right ventricle is normal size. ATRIA The left atrium is mildly dilated. AORTIC VALVE There is trace to mild aortic regurgitation. MITRAL VALVE Mitral regurgitation is severe. TRICUSPID VALVE There is severe tricuspid regurgitation. <Conclusion> Severe LV systolic dysfunction. Dilated LA. Severe TR. Severe MR. Mild AR. No definite vegetation seen, consider BLANCHE if clinically indicated.
== END 2018-04-03 10:15 | DRG 853 ==
LOC: C.ER 09:44 → C.9E 10:52 → C.9I 11:28
PROVIDERS: ADMIT Internal Medicine Nephrology; ATTEND Internal Medicine Nephrology
PROC: 05HM33Z Insertion of Infusion Device into Right Internal Jugular Vein, Percutaneous Approach (ICD-10-PCS; 2018-04-01)
PROC: 0BDB8ZX Extraction of Left Lower Lobe Bronchus, Via Natural or Artificial Opening Endoscopic, Diagnostic (ICD-10-PCS; 2018-04-02)
PROC: 0BH17EZ Insertion of Endotracheal Airway into Trachea, Via Natural or Artificial Opening (ICD-10-PCS; 2018-04-02)
PROC: 5A1945Z Respiratory Ventilation, 24-96 Consecutive Hours (ICD-10-PCS; 2018-04-02)
PROC: 0B9J8ZX Drainage of Left Lower Lung Lobe, Via Natural or Artificial Opening Endoscopic, Diagnostic (ICD-10-PCS; principal; 2018-04-02 11:00)
DX: A41.9 Sepsis, unspecified organism (principal); J18.9 Pneumonia, unspecified organism; I21.4 Non-ST elevation (NSTEMI) myocardial infarction; R65.21 Severe sepsis with septic shock; J80 Acute respiratory distress syndrome; C91.10 Chronic lymphocytic leukemia of B-cell type not having achieved remission; J93.9 Pneumothorax, unspecified; R57.0 Cardiogenic shock; I48.92 Unspecified atrial flutter; I50.22 Chronic systolic (congestive) heart failure; D58.9 Hereditary hemolytic anemia, unspecified; R04.2 Hemoptysis; E86.1 Hypovolemia; I11.0 Hypertensive heart disease with heart failure; I25.10 Atherosclerotic heart disease of native coronary artery without angina pectoris; I48.91 Unspecified atrial fibrillation; J98.09 Other diseases of bronchus, not elsewhere classified; N28.9 Disorder of kidney and ureter, unspecified; I34.1 Nonrheumatic mitral (valve) prolapse; K74.60 Unspecified cirrhosis of liver; E78.5 Hyperlipidemia, unspecified; E78.00 Pure hypercholesterolemia, unspecified; Z66 Do not resuscitate; Z95.1 Presence of aortocoronary bypass graft; Z95.810 Presence of automatic (implantable) cardiac defibrillator; Z79.82 Long term (current) use of aspirin; Z79.02 Long term (current) use of antithrombotics/antiplatelets; Z95.0 Presence of cardiac pacemaker; Z79.899 Other long term (current) drug therapy